=== PATIENT | female | born 2005 | race Caucasian/White ===

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

== ENCOUNTER 2024-09-13 21:41 | Emergency (ER) | payer BC, SELFPAY ==
--- OUTSIDE RECORDS SUMMARY | 2023-12-02 10:00 | XMS_ITS ---
Author Organization [employer] [place] [employer] Address [address] [place] [address] Care Team Providers Care Over The Horizon Targeting Supervisor Name Role Phone None, No PCP Primary Care Provider Bo Goldstein Unavailable [phone] Leticia Rider Unavailable [phone] Encounters Encounter Location Date Provider Diagnosis [address] [id number] 12/02/2023 Leticia Rider Plan Of Treatment No Information Progress Notes * Jazmin JEANDOB:2005 (18 yo F)Acc No.[id number]:12/02/2023 Patient: Jazmin GUERRIER Provider: Pancho Rider DO :2005 A ge:18 Y S ex:Female Date:12/02/2023 Address:[address] [place] [address] [facility] Pcp:No PCP None Subjective: * Chief Complaints: * * Medical History: Objective: * Vitals: Assessment: Plan: * Treatment: * Images: Billing Information: * Visit Code: * Procedure Codes: * Electronic signature of Deborah Rider DO on 09/13/2024 at 11:06 PM CDT Sign off status: Pending * Provider: Pancho Rider DO Date: 1 Generated for Printi ng/Faxing/eTransmitting on: 0 09/13/2024 11:06 PM CDT
--- OUTSIDE RECORDS SUMMARY | 2023-12-02 10:00 | XMS_ITS ---
Author Organization [place] [employer] Address [address] [place] [address] Care Team Providers Care Smoking Pipe Coater Name Role Phone None, No PCP Primary Care Provider Bo Goldstein Unavailable [phone] Leticia Rider Unavailable [phone] Encounters Encounter Location Date Provider Diagnosis [address] [id number] 12/02/2023 Leticia Rider Plan Of Treatment No Information Progress Notes * Jazmin JEANDOB:2005 (18 yo F)Acc No.[id number]:12/02/2023 Patient: Jazmin GUERRIER Provider: Pancho Rider DO :2005 A ge:18 Y S ex:Female Date:12/02/2023 Address:[address] [place] [address] [facility] Pcp:No PCP None Subjective: * Chief Complaints: [...]
--- OUTSIDE RECORDS SUMMARY | 2023-12-02 10:00 | XMS_ITS ---
Author Organization [place] [employer] Address [address] [place] [address] Care Team Providers Care Structured Cabling Technician Name Role Phone None, No PCP Primary Care Provider Bo Goldstein Unavailable [phone] Leticia Rider Unavailable [phone] Encounters Encounter Location Date Provider Diagnosis [address] [id number] 12/02/2023 Leticia Rider Plan Of Treatment No Information Progress Notes * Jazmin JEANDOB:2005 (18 yo F)Acc No.[id number]:12/02/2023 Patient: Jazmin GUERRIER Provider: Pancho Rider DO :2005 A ge:18 Y S ex:Female Date:12/02/2023 Address:[address] [place] [address] [facility] Pcp:No PCP None Subjective: * Chief Complaints: * * Medical History: Objective: * Vitals: Assessment: Plan: * Treatment: * Images: Billing Information: * Visit Code: * Procedure Codes: * Electronic signature of Deborah Rider DO on 09/13/2024 at 10:56 AM CDT Sign off status: Pending * Provider: Pancho Rider DO Date: 1 Generated for Printi ng/Faxing/eTransmitting on: 0 09/13/2024 10:56 AM CDT
--- OUTSIDE RECORDS SUMMARY | 2023-12-02 10:00 | XMS_ITS ---
Author Organization [place] [employer] Address [address] [place] [address] Care Team Providers Care Ski Patroller Name Role Phone None, No PCP Primary Care Provider Bo Goldstein Unavailable [phone] Leticia Rider Unavailable [phone] Encounters Encounter Location Date Provider Diagnosis [address] [id number] 12/02/2023 Leticia Rider Plan Of Treatment No Information Progress Notes * Jazmin JEANDOB:2005 (18 yo F)Acc No.[id number]:12/02/2023 Patient: Jazmin GUERRIER Provider: Pancho Rider DO :2005 A ge:18 Y S ex:Female Date:12/02/2023 Address:[address] [place] [address] [facility] Pcp:No PCP None Subjective: * Chief Complaints: [...]
--- OUTSIDE RECORDS SUMMARY | 2023-12-16 11:15 | XMS_ITS ---
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 Medications Medication SIG (Take, Route, Frequency, Duration) Notes Start Date End Date Status Ashwagandha Active Albuterol Active Social History Tobacco Use: Social History Observation Description Date Details (start date - stop date) Never Smoker NA - NA Tobacco Control (Standard) Question Answer Notes Tobacco use: Nonsmoker Encounters Encounter Location Date Provider Diagnosis [address] [id number] 12/16/2023 Leticia Rider Embedded foreign body Z18.9 [...] Notes * Jazmin JEANDOB:2005 (18 yo F)Acc No.[id number]:12/16/2023 Progress Note Patient: Lars STEPHENSONJazmin Provider: Pancho Rider DO :2005 A ge:18 Y S ex:Female Date:12/16/2023 Address:[address] [place] [address] JOSELIN Galindo, [facility] Pcp:No PCP None Subjective: * Chief Complaints: * 1 . Post op IUD removal under sedation. 2. 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 * Medical History: D epression, Asthma. * Data Coder Operator History: D ate of Last Period: i [...] Date: Generated for Cara huizar/Codie/eTvivianeitting on: 0 09/13/2024 11:06 PM CDT
--- OUTSIDE RECORDS SUMMARY | 2023-12-16 11:15 | XMS_ITS ---
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 Medications Medication SIG (Take, Route, Frequency, Duration) Notes Start Date End Date Status Ashwagandha Active Albuterol Active Social History Tobacco Use: Social History Observation Description Date Details (start date - stop date) Never Smoker NA - NA Tobacco Control (Standard) Question Answer Notes Tobacco use: Nonsmoker Encounters Encounter Location Date Provider Diagnosis [address] [id number] 12/16/2023 Leticia Rider Embedded foreign body Z18.9 [...] Notes * Jazmin JEANDOB:2005 (18 yo F)Acc No.[id number]:12/16/2023 Progress Note Patient: Lars STEPHENSONJazmin Provider: Pancho Rider DO :2005 A ge:18 Y S ex:Female Date:12/16/2023 Address:[address] [place] [address] JOSELIN Galindo, [facility] Pcp:No PCP None Subjective: * Chief Complaints: * 1 . Post op IUD removal under sedation. 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 * Medical History: D epression, Asthma. * Investigations Manager History: D ate of Last Period: i [...] of Deborah Rider DO on 09/13/2024 at 08:55 AM CDT Sign off status: Pending * Provider: Pancho Rider DO Date: Generated for Cara huizar/Codie/eTvivianeitting on: 0 09/13/2024 08:55 AM CDT
--- OUTSIDE RECORDS SUMMARY | 2024-08-27 12:00 | XMS_ITS | Encounter Summary ---
Author Organization [employer] Address [address] [address] Care Team Providers Care Online Facilitator Name Role Phone Belle Diaz PA-C Primary Care Provider [phone] Reason for Referral * Procedure/Equipment (Routine) - Incomplete Specialty Diagnoses / Procedures Referred By Contac t Referred To Contact Diagnoses Constipation, unspecified constipation type Procedures XR Abd Flat And Upright Zee Lam MD [address] [place] [address] Phone: tel: fax: Referral ID Status Reason Start Date Expiration Date V isits Requested Visits Authorized [id number] Incomplete 08/27/2024 11/26/2025 1 1 Reason for Visit * Reason Comments Constipation Encounter Details Date Type Department Care Team (Late st Contact Info) Description 08/27/2024 12:00 PM CDT Office Visit [facility] [address] [place] [address] Zee Lam MD [address] [place], [place] [id number] Constipation, unspecified constipation type Social History Tobacco Use Types Packs/Day Years Used Date Smoking Tobacco: Former Cigarettes Smokeless Tobacco: Never Tobacco Cessation:Counseling Given: Not Answered Alcohol Use Standard Drinks/Week Comments No 0 (1 standard drink = 0.6 oz pur e alcohol) Hunger Vital Sign Answer Date Recorded Within the past 12 months, y ou worried that your food would run out before you got the money to buy more. Never true 11/25/19 23 Within the past 12 months, t he food you bought just didn't last and you didn't have money to get more. Never true 11/24/2022 Comments No Sex and Gender Information Value Date Recorded Sex Assigned at Female 11/08/2022 5:42 PM CDT Legal Sex Female 4:21 AM CDT Gender Identity Female 11/08/2022 5:42 PM CDT Sexual Orientation Bisexual 11/08/2022 5: 42 PM CDT documented as of this encounter Last Filed Vital Signs Vital Sign Reading Time Taken Comments Blood Pressure 113/62 08/27/2024 11:44 AM CDT Pulse 91 08/27/2024 11:44 AM CDT Temperature 36.9 C (98.4 F) 08/27/2024 11:44 AM CDT Respiratory Rate 16 08/27/2024 11:44 AM CDT Oxygen Saturation 97% 08/27/2024 11:44 AM CDT Inhaled Oxygen Concentration - - Weight - - Height - - Body Mass Index - - documented in this encounter Patient Instructions * Patient Instructions* Zee Lam MD - 08/27/2024 12:00 PM CDT Take a little miralax daily if constipation continues to be a problem Follow up here or primary care provider or ED if getting worse documented in this encounter Progress Notes * Zee Lam MD - 08/27/2024 12:00 PM CDT [facility] Patient: Jazmin Carroll Date of : 2005 (18 y.o.) Subjective Nursing Notes: You Kerr, RN 08/27/24 6545 Signed Pt states she has had trouble with constipation for about 1 week. Has tried Miralax a couple times,Dulcolax. Today had a normal sized stool that was loose. States she had cramping for about 2 hours after having a bowel movement today. Patient requests an excuse letter for work/school: No History of Present Illness The patient presents with constipation for one week. She has been experiencing constipation for approximately one week, with no bowel movements for fourdays. She took one dose of Miralax in the morning and one dose of Dulcolax in the evening. By Tuesday, she had a minimal bowel movement that was mostly watery. This morning, she had a sizable bowel movement but experienced cramping for about two hours afterward and still feels a sense of fullness. The pain is located in the lower abdomen, sometimes radiating upwards, but primarily remains in the lower abdomen. She has a history of constipation only during a period of severe anorexia when she was not eating at all, but otherwise does not have a history of constipation. She does not regularly use laxatives and has not taken any other medications for this issue since the initial doses of Miralax and Dulcolax. No fever. She has been eating normally. No missed periods, indicating no current . Past Medical History: Diagnosis Date Tympanic membrane rupture Wheezing 01/04/15 ALBUterol sulfate HFA, ARIPiprazole, citalopram, and lamoTRIgine Allergies Allergen Reactions Other Rash Developed a rash on 3rd day of taking Celexa, Abilify and Lamictal. Unsure which caused the allergy. Social History Social History Narrative Living with great aunt since Feb 2011. Parents - were incarcerated; Hx of drug use. Now released. Parents are not together - are involved. 2 biologic sibs - Older brother Pablo (1 yr older) and twin sister Beth. 2 cousins at home as well. BP 113/62 (BP Location: Left Arm, BP Cuff Size: Regular) Pulse 91 Temp 36.9 ??C (98.4 ??F) (Oral) Resp 16 SpO2 97% Gen: Alert and oriented, NAD Abd soft, mild tender right lower pelvis Laboratory Testing: No results found for any visits on 08/27/24. Radiology: XR Abd Flat And Upright Result Date: 08/27/2024 EXAM: XR ABD FLAT AND UPRIGHT INDICATION: abd cramping and constipation COMPARISON: None. FINDINGS:Two views were obtained. Abdominal gas pattern is nonobstructive with small amount of stool, mostlyin the ascending colon. No suspicious calcifications are identified. No gross free intraabdominal gas is seen. There are no abnormal gas-fluid levels. No abnormal soft tissue mass or organomegaly is noted. Signed by: Javad Atwood 08/27/2024 12:15 PM MDM: no significant amount of stool in the colon and mild tenderness only in the area of the right ovary, at midcycle so I think some of her cramping is likely ovulation Interventions: Orders Placed This Encounter XR Abd Flat And Upright Assessment 1. Constipation, unspecified constipation type Plan Patient Discharge Medications & Instructions: Medications Prescribed this Visit None Patient Instructions Take a little miralax daily if constipation continues to be a problem Follow up here or primary care provider or ED if getting worse Zee Lam MD documented in this encounter Nursing Notes * You Kerr RN - 08/27/2024 12:00 PM CDT Pt states she has had trouble with constipation for about 1 week. Has tried Miralax a couple times,Dulcolax. Today had a normal sized stool that was loose. States she had cramping for about 2 hours after having a bowel movement today. Patient requests an excuse letter for work/school: No documented in this encounter Plan of Treatment Not on file documented as of this encounter Results * XR Abd Flat And Upright (08/27/2024 12:13 PM CDT) Anatomical Region Laterality Modality Abdomen Digital Radiogra phy Narrative 08/27/2024 12:15 PM CDT EXAM: XR ABD FLAT AND UPRIGHT INDICATION: abd cramping and constipation COMPARISON: None. FINDINGS: Two views were obtained. Abdominal gas pattern is nonobstructive with small amount of stool, mostly in the ascending colon. No suspicious calcifications are identified. No gross free intraabdominal gas is seen. There are no abnormal gas-fluid levels. No abnormal soft tissue mass or organomegaly is noted. Signed by: Javad Atwood 08/27/2024 12:15 PM Procedure Note Javad Atwood MD - 08/27/2024 EXAM: XR ABD FLAT AND UPRIGHT INDICATION: abd cramping and constipation COMPARISON: None. FINDINGS: Two views were obtained. Abdominal gas pattern is nonobstructive withsmall amount of stool, mostly in the ascending colon. No suspiciouscalcifications are identified. No gross free intraabdominal gas is seen.There are no abnormal gas-fluid levels. No abnormal soft tissue mass ororganomegaly is noted. Signed by: Javad Atwood 08/27/2024 12:15 PM us Zee Lam MD RAD GD Final Result documented in this encounter Visit Diagnoses Diagnosis Constipation, unspecified constipation type Constipation, unspecified constipation type documented in this encounter Care Teams Online Facilitator Relationship Specialty Start Date End Date Belle Diaz, MALIKAC [address] [place] [address] PCP - General Physician Supply Cataloguer 08/15/21 documented as of this encounter
--- OUTSIDE RECORDS SUMMARY | 2024-08-27 12:05 | XMS_ITS | Encounter Summary ---
Author Organization [employer] Address [address] [address] Care Team Providers Care Boulevard Glassware Replacer Name Role Phone Belle Diaz PA-C Primary Care Provider [phone] Reason for Visit * Procedure/Equipment (Routine) - Incomplete Specialty Diagnoses / Procedures Referred By Contac t Referred To Contact Diagnoses Constipation, unspecified constipation type Procedures XR Abd Flat And Upright Zee Lam MD [address] [place] [address] Phone: tel: fax: Referral ID Status Reason Start Date Expiration Date V isits Requested Visits Authorized [id number] Incomplete 08/27/2024 11/26/2025 1 1 Encounter Details Date Type Department Care Team (Latest Contact Info) Description 08/27/2024 12:05 PM CDT Ancillary Procedure [facility] [address] Radiology [address] [place] [address] Zee Lam MD [address] [place] [address] Constipation, unspecified constipation type Social History Tobacco Use Types Packs/Day Years Used Date Smoking Tobacco: Former Cigarettes Smokeless Tobacco: Never Alcohol Use Standard Drinks/Week Comments No 0 [...] PM CDT documented as of this encounter Plan of Treatment Not on file documented as of this encounter Procedures Procedure Name Priority Date/Time Associated Diagnosis Comments XR ABD FLAT AND UPRIGHT STAT 08/27/2024 12:13 PM CDT Constipation, unspecified constipation type documented in this encounter Results * XR Abd Flat [...] Signed by: Javad Atwood 08/27/2024 12:15 PM Zee Lam MD RAD GD Final Result documented in this encounter Visit Diagnoses Diagnosis Constipation, unspecified constipation type documented in this encounter Care Teams Boulevard Glassware Replacer Relationship Specialty Start Date End Date Belle Diaz PA-C [address] [place] [address] PCP - General Physician Cabinet Abrasive Sandblaster 08/15/21 documented as of this encounter
--- OUTSIDE RECORDS SUMMARY | 2024-09-06 13:00 | XMS_ITS | Encounter Summary ---
Author Organization [employer] Address [address], [place] [address] Care Team Providers Care Food Crops Farm Hand Name Role Phone Belle Diaz PA-C Primary Care Provider [phone] Reason for Referral * Procedure/Equipment (Routine) - Incomplete Specialty Diagnoses / Procedures Referred By Contac t Referred To Contact Diagnoses Menorrhagia with regular cycle Procedures OBGYN Pelvic/Outside Sales Advertising Executive Ultrasound Anjelica Davidson APRN, CNM [address] [place] [address] Phone: tel: fax: Referral ID Status Reason Start Date Expiration Date V isits Requested Visits Authorized [id number] Incomplete 09/06/2024 12/06/2025 1 1 Reason for Visit * Reason Comments Video Visit DYSMENORRHEA Encounter Details Date Type Department Care Team (Late st Contact Info) Description 09/06/2024 1:00 PM CDT Telemedicine [facility] [place] [phone] Anjelica Davidson APRN, CNM [address] [place], [place] [phone] Menorrhagia with regular cycle (Primary Dx) Social [...] you use any other medicines. This includes hcya-zhy-szwfqzi medicines, vitamins, herbal products, and supplements. control [...] get them without a prescription at most [facility]. What should you think about when [...] can you learn more? 1. Go to https://www.[employer]viewstreet.[employer]ency/healthlibrary. 2. Enter Z218 in the search box. Current as of: June 21, 2023 Content Version: 14.5 ?? [employer]. Care instructions adapted under license by your healthcare professional. If you have questions about a medical condition or this instruction, always ask your healthcare professional. [employer] disclaims any warranty or liability for your use of this information. documented in this encounter Plan of Treatment Not on file documented as of this encounter Results * OBGYN Pelvic/Outside Sales Advertising Executive Ultrasound (09/13/2024 11:13 AM CDT) Uterus AP Diameter (Height) 3.00 cm EXTERNAL RESULTS Uterus Longitudinal Diameter (Length) 6.90 cm EXTERNAL RESULTS Uterus Transverse Diameter (Width) 3.50 cm EXTERNAL RESULTS Uterus Volume 37.93 ml FIELD TECH AL RESULTS Endometrium Thickness 5.20 mm EXTERNAL [...] from the original result was not included. INTELLIGENCE APPLICATIONS Ultrasound Exam performed on: 09/13/2024 Referring provider: Anjelica Davidson APRN, CNM Referring clinic: [facility] Clinical indications: Menorrhagia with regular cycle LMP: 08-31-2024 Solo Musician(s) initials: KI The pelvic organs are imaged [...] provider. Irina Meng MD us Anjelica Davidson AUTOMATION SALES MANAGER, CNM RAD US Final Res ult documented in this encounter Visit Diagnoses Diagnosis Menorrhagia with regular cycle- Primary Excessive or frequent menstruation Menorrhagia with regular cycle Excessive or frequent menstruation documented in this encounter Care Teams Food Crops Farm Hand Relationship Specialty Start Date End Date Belle Diaz, KEYONA [address] [place] [address] PCP - General Physician Care Program Director 08/15/21 documented as of this encounter
--- OUTSIDE RECORDS SUMMARY | 2024-09-06 19:49 | XMS_ITS | Encounter Summary ---
Author Organization [facility] Address [address] [place] [address] Care Team Providers Care General Assembler Name Role Phone None Reported, Pcp Primary Care Provider Unavail able Reason for Visit * Reason Comments Vomiting Pt comes in for eval uation of vomiting that has been going on all day. She states that she has cyclic hyperemesis syndrome related to smoking marijuana, which she does still use occasionally. She states she last used yesterday. She has had very little to no PO intake today. Encounter Details Date Type Department Care Team (Late st Contact Info) Description 09/06/2024 7:49 PM CDT - 09/06/2024 9:19 PM CDT Emergency [facility] [address] [place] [phone] Peña Pal, MORA, C.N.P., D.N.P. [address] [place] [phone] Cyclical Vomiting Syndrome Unrelated To Migraine (Primary Dx); Nausea And Vomiting; Abdominal Pain Discharge Disposition: Home or Self Care Social History Tobacco Use Types Packs/Day Years Used Date Smoking Tobacco: Never Smokeless Tobacco: Never Alcohol Use Standard Drinks/Week Comments Yes 3 (1 standard drink = 0.6 oz pur e alcohol) Comments No Sex and Gender Information Value Date Recorded Sex Assigned at Not on file Legal Sex Female 12:37 AM CDT Gender Identity Not on file Sexual Orientation Not on file documented as of this encounter Last Filed Vital Signs Vital Sign Reading Time Taken Comments Blood Pressure 120/60 09/06/2024 9:10 PM CDT Pulse 58 09/06/2024 9:10 PM CDT Temperature 36.7 C (98.1 F) 09/06/2024 7:54 PM CDT Respiratory Rate 18 09/06/2024 9:10 PM CDT Oxygen Saturation 99% 09/06/2024 9:10 PM CDT Inhaled Oxygen Concentration - - Weight 78 kg (171 lb 15.3 oz) 09/06/2024 7:53 PM CDT Height - - Body Mass Index - - documented in this encounter Discharge Instructions * Discharge Instructions* Peña Pal APRN, C.N.P., D.N.P. - 09/06/2024 8:45 PM CDT You need to stop smoking cannabis, ingesting cannabis for it least 6 months before this syndrome gets better. Continue with sgge-doz-orltgmo Capsaicin cream 3 times a day to your stomach. Medicationsas ordered. Follow-up with primary care. Return to the emergency department with worsening symptoms. Zomauro at [facility]. Compazine suppositories at [facility]. Thank you for utilizing [facility] for your care! * Attachments The following attachments cannot be sent through Care Everywhere. * Cannabinoid Hyperemesis Syndrome (Malawian) documented in this encounter Medications at Time of Discharge dicyclomine (BENTYL) 10 mg capsule Take 10 mg by mouth 4 (four) times a day. FLUoxetine (PROzac) 20 mg capsule Take 20 mg by mouth daily. guanFACINE (TENEX) 2 mg tablet Take 2 mg by mouth at bedtime. hydrOXYzine (ATARAX) 25 mg tablet Take 25 mg by mouth. 0 ibuprofen (ADVIL,MOTRIN) 200 mg capsule Take 600 mg by mouth every 6 (six) hours as needed for pain. melatonin 3 mg tablet Take 3 mg by mouth. 0 OLANZapine (ZyPREXA ZYDIS) 5 mg disintegrating tablet Dissolve 5 mg in the mouth at bedtime. omeprazole (PriLOSEC) [address] capsule Take 20 mg by mouth every morning before breakfast. ondansetron ODT (ZOFRAN-ODT) 4 mg disintegrating tablet Dissolve 1 tablet (4 mg total) in the mouth every 8 (eight) hours as needed for nausea or vomiting for up to 30 doses. 30 tablet 4 ondansetron ODT (Zofran-ODT) 4 mg disintegrating tablet Dissolve 1 tablet (4 mg total) in the mouth every 12 (twelve) hours. 10 tablet 5 prochlorperazine (Compazine) 25 mg suppository Insert 1 suppository (25 mg total) into the rectum every 12 (twelve) hours as needed for nausea or vomiting. 12 suppository 5 promethazine (PHENERGAN) 25 mg tablet Take 1 tablet (25 mg total) by mouth every 6 (six) hours as needed for nausea or vomiting (Headache). 20 tablet 4 documented as of this encounter ED Notes * Peña Pal, MORA, C.N.P., D.N.P. - 09/06/2024 7:49 PM CDT Images from the original note were not included. CHIEF COMPLAINT/REASON FOR VISIT Vomiting (Pt comes in for evaluation of vomiting that has been going on all day. She states that she has cyclic hyperemesis syndrome related to smoking marijuana, which she does still use occasionally. She states she last used yesterday. She has had very little to no PO intake today.) HISTORY OF PRESENT ILLNESS Patient presents to the emergency department stating I have hyperemesis cannabis disorder. Patient states she started vomiting this morning. She did smoke cannabis yesterday. She has been trying toquit. Patient states occasionally she will be able to keep down ice chips and small sips of fluid ot herwise she has not had anything to eat or felt a drink today. He is complaining of some abdominal pain. Symptoms improve hot shower. Patient is also a tried Capsaicin cream in the past and this has been helpful. Patient states she has had some constipation and diarrhea lately. She denies any fever, chills, sweats. She does have, epigastric and central abdominal pain. She has used droperidol in the past with Benadryl and this has been helpful for her. History provided by: Patient and significant other interpreter and translator needed/used: no REVIEW OF SYSTEMS Constitutional: Negative for chills, diaphoresis, fatigue and fever. HENT: Negative for sinus pressure and sore throat. Respiratory: Negative for cough, chest tightness and shortness of breath. Cardiovascular: Negative for chest pain. Gastrointestinal: Positive for abdominal pain, constipation, diarrhea, nausea and vomiting. Genitourinary: Negative for dysuria, frequency and urgency. Musculoskeletal: Negative for arthralgias and myalgias. Skin: Negative for rash. Neurological: Negative for dizziness, weakness and headaches. Hematological: Negative for adenopathy. Does not bruise/bleed easily. All other systems reviewed and are negative. Allergies Reviewed in medical record Current Medications Reviewed in Medical Record. PAST HISTORY Medical Medical History[1] Problem List[2] Surgical Surgical History[3] Family Reviewed in Medical Record Social History Social History Tobacco Use Smoking status: Never Smokeless tobacco: Never Substance Use Topics Alcohol use: Yes Alcohol/week: 3.0 standard drinks of alcohol Types: 3 Shots of liquor per week Social History Substance and Sexual Activity Drug Use Yes Types: Marijuana OBJECTIVE Initial Vital Signs / Weights Initial Vitals Temperature 09/06/241953 36.7 ??C Pulse Rate 09/06/241953 (!) 55 Heart Rate -- Resp Rate 09/06/241953 18 Blood Pressure 09/06/241953 132/60 SpO2 09/06/241953 96 % Pain Score 09/06/241951 7 Wt Readings from Last 3 Encounters: 09/06/24 78 kg 10/21/23 78 kg 06/16/23 73.5 kg (88%, Z= 1.20)* * Growth percentiles are based on CDC (Girls, 2-20 Years) data. PHYSICAL EXAMINATION Constitutional: Nursing note and vitals reviewed. No distress. HENT: Mouth/Throat: Oropharynx is clear and moist. Mucous membranes are moist. No tonsillar exudate. Eyes: Conjunctivae and EOM are normal. Pupils are equal, round, and reactive to light. Neck: Neck supple. Cardiovascular: Normal rate, regular rhythm, S1 normal, S2 normal and normal heart sounds. Pulses are strong and palpable. No murmur heard.Capillary refill: takes less than 3 seconds Pulmonary/Chest: Effort normal and breath sounds normal. There is normal air entry. No respiratory distress. Abdominal: Soft. Bowel sounds are normal. There is no abdominal tenderness. There is no rebound andno guarding. Musculoskeletal: General: Normal range of motion. Cervical back: Normal range of motion and neck supple. Lymphadenopathy: She has no cervical adenopathy. Neurological: Alert and oriented to person, place, and time. No cranial nerve deficit. Skin: Skin is warm, dry and intact. Psychiatric: She has a normal mood and affect. DIAGNOSTICS Labs Labs Reviewed BASIC METABOLIC PANEL, S/P - Abnormal Result Value Potassium, P 4.0 Sodium, P 140 Chloride, P 107 Bicarbonate, P 17 (*) Anion Gap, P 16 (*) BUN (Blood Urea Nitrogen), P 16 Creatinine 1.19 (*) Estimated GFR (eGFR) 67 Calcium, Total, P 9.9 Glucose, P 122 CBC WITH DIFFERENTIAL, B - Abnormal Hemoglobin 13.1 Hematocrit 37.7 Erythrocytes 4.33 MCV 87.1 RBC Distrib Width 12.9 Platelet Count 306 Leukocytes 14.2 (*) Neutrophils 12.56 (*) Lymphocytes 1.15 Monocytes 0.40 Eosinophils <0.04 Basophils 0.05 MAGNESIUM, S Magnesium, P 2.1 Procedures None See separate procedure note. ED COURSE ED Course as of 09/06/242122 [facility] Sep 06, [id number] I performed my initial evaluation of the patient. We discussed Emergency Department course including testing, treatment, and potential disposition based on findings. Appears uncomfortable but not actively vomiting on arrival. 2013 Leukocytes(!): 14.2 2013 Neutrophils(!): 12.56 Secondary to demarginalization from vomiting. Doubt infection and no infectious sx. 2023 Potassium, P: 4.0 2023 Sodium, P: 140 Reassuring 2023 Anion Gap, P(!): 16 Open gap with bicarb of 17. Expected with vomiting and fluids should help 2023 Glucose, P: 122 2023 Magnesium, P: 2.1 2023 No severe metabolic derangement. 2116 Feeling much improved. Tolerating liquids. Would like to be discharged. I discussed the plan for discharge with the patient, and patient/family is agreeable. I discussed with patient the utility, limitations, and findings of the exam/interventions/studies done during this visit as well as the list of differential diagnosis. Patient understands provisional nature of this diagnosis and need for follow up. We discussed the plan of care, including supportive cares. We also discussed symptoms to monitor and symptoms that should prompt them to return for re-evaluation including new or worsening symptoms. All questions and concerns addressed. Patient to be discharged by RN. Final Diagnoses: as of 09/06/242122 Cyclical Vomiting Syndrome Unrelated To Migraine Nausea And Vomiting Abdominal Pain INTERVENTIONS Medications NaCl 0.9 % bolus 1,000 mL (0 mL intravenous Stopped 09/06/242044) diphenhydrAMINE injection 25 mg (BenadryL) (25 mg intravenous Given 09/06/242019) droPERidoL injection 1.875 mg (Inapsine) (1.875 mg intravenous Given 09/06/242017) ketorolac injection 15 mg (ToradoL) (15 mg intravenous Given 09/06/242015) pantoprazole injection 40 mg (Protonix) (40 mg intravenous Given 09/06/242019) capsaicin 0.025 % cream 1 Application (Zostrix) (1 Application topical Given 09/06/242028) MEDICAL DECISION MAKING Assessment and Plan Patient presents to the emergency department with cannabis hyperemesis syndrome. Patient has a history of the same. She used cannabis yesterday. She started vomiting this morning. She has not been able to stop vomiting. She took all of her home medications which do not include antiemetics as she ran out. Denies any fever, chills, sweats. She is tolerating occasional small sips of liquids otherwise not keeping any food or drink down. Differential diagnosis includes but not limited to cannabis hyperemesis syndrome, viral gastroenteritis, ulcerative disease, perforated ulcer, gallbladder disease pancreatitis, or others. We will get a CBC, BNP and magnesium to ensure no metabolic derangement. She will be given a L of fluid. She will be given 25 of Benadryl, 1.875 mg of droperidol, Toradol for her stomach pain as wellas Capsaicin cream. Disposition pending workup. Patient felt a little anxious from the droperidol, however she had no further vomiting while in theemergency department. She was tolerating liquids without any difficulty. We will continue her treatment as an outpatient, she was given a script for Zofran as well as Compazine rectal. Patient was also instructed to pickling operator Capsaicin cream and use the 3 times a day on her abdomen. She was also instructed to stop smoking or ingesting cannabis for it least 6 months. SHe was given a list of resources to help her quit. She was discharged in no acute distress feeling much improved. Patient and/or caregiver was given red flag signs & symptoms that would require immediate followup or return to the ED. . DIFFERENTIAL DIAGNOSES As above. PROBLEMS ADDRESSED THIS VISIT As above. Care is significantly affected by the following Social Determinants of Health: none. I reviewed the following external records: primary care records, prior outpatient labs, prior outpatient radiology tests and inpatient records. The following tests were considered but ultimately not performed: CT imaging of the abdomen was considered, however diffuse abdominal pain with no localization, no rebound or abdominal pain that would suggest peritonitis or surgical abdomen.. Escalation of care, including admission/observation, considered: Did consider observation admissionhowever the patient's symptoms resolved.. DIAGNOSIS Final diagnoses: [R11.15] Cyclical Vomiting Syndrome Unrelated To Migraine [R11.2] Nausea And Vomiting [R10.9] Abdominal Pain DISPOSITION Home or Self Care DISCHARGE/TRANSFER VITAL SIGNS Vitals: 09/06/24 2110 BP: 120/60 Pulse: (!) 58 Resp: 18 Temp: SpO2: 99% ED DISCHARGE MEDS ED Prescriptions Medication Sig Dispense Start Date End Date Auth. Provider prochlorperazine (Compazine) 25 mg suppository Insert 1 suppository (25 mg total) into the rectum every 12 (twelve) hours as needed for nausea or vomiting. 12 suppository 09/06/2024 -- Peña Pal APRN, C.N.P., D.N.P. ondansetron ODT (Zofran-ODT) 4 mg disintegrating tablet Dissolve 1 tablet (4 mg total) in the mouthevery 12 (twelve) hours. 10 tablet 09/06/2024 -- Peña Pal APRN, C.N.P., D.N.P. FOLLOW UP Follow-up with primary care as needed. Peña Pal DNP, MORA, SERVICE DELIVERY MANAGEMENT CONSULTANT-C, AGACNP-BC, ENP-C Emergency Medicine [1] Past Medical History: Diagnosis Date Anorexia Anxiety Generalized Disorder Asthma NOS Bulimia Nervosa (HCC) Depressive Disorder Gastroesophageal Reflux Disease NOS [2] Patient Active Problem List Diagnosis Cyclical Vomiting Syndrome Unrelated To Migraine Suicide Ideation Suicide Attempt Initial Encounter ([facility]) Posttraumatic Stress Disorder Brief Anxiety Generalized Disorder Other Specified Eating Disorder Loss Weight Abnormal Hypokalemia Gastroesophageal Reflux Disease NOS Depression Major Recurrent Moderate (HCC) Cannabis Use Unspecified Uncomplicated Bradycardia Asthma Exercise Induced Bronchospasm (HCC) Eating Disorder NOS Abdominal Pain Mood Disorder [3] History reviewed. No pertinent surgical history. Peña Pal APRN, C.N.P., D.N.P. 09/06/242122 documented in this encounter Plan of Treatment Not on file documented as of this encounter Procedures Procedure Name Priority Date/Time Associated Diagnosis Comments CBC WITH DIFFERENTIAL, B STAT 09/06/2024 8:03 PM CDT MAGNESIUM, S STAT 09/06/2024 8:03 PM CDT BASIC METABOLIC PANEL, S/P STAT 09/06/2024 8:03 PM CDT documented in this encounter Results * Magnesium (09/06/2024 8:03 PM CDT) Magnesium, P 2.1 1.7 - 2.3 mg/dL 09/06/2024 8:23 PM CDT [facility] Blood (Blood, Venous) 09/06/2024 8:03 PM CDT 09/06/2024 8:05 PM CDT Peña Pal APRN, C.N.P., D.N.P. LAB BLOOD AD D-ON Final Result [facility] [address] [place] [id number], [place] [facility] in [address] [address] * (ABNORMAL) CBC with Differential, Blood (09/06/2024 8:03 PM CDT) [facility] Hemoglobin 13.1 11.6 - 15.0 g/dL 09/06/2024 8:10 PM CDT CNFL Hematocrit 37.7 35.5 - 44.9 % 09/06/2024 8:10 PM CDT CNFL Erythrocytes 4.33 3.92 - 5.13 x10(12)/L 09/06/2024 8:10 PM CDT CNFL MCV 87.1 78.2 - 97.9 fL 09/06/2024 8:10 PM CDT CNFL RBC Distrib Width 12.9 12.2 - 16.1 % 09/06/2024 8:10 PM CDT CNFL Platelet Count 306 157 - 371 x10(9)/L 09/06/2024 8:10 PM CDT CNFL Leukocytes 14.2(H) 3.4 - 9.6 x10(9)/L 09/06/2024 8:10 PM CDT CNFL Neutrophils 12.56(H) 1.56 - 6.45 x10(9)/L 09/06/2024 8:10 PM CDT CNFL Lymphocytes 1.15 0.95 - 3.07 x10(9)/L 09/06/2024 8:10 PM CDT CNFL Monocytes 0.40 0.26 - 0.81 x10(9)/L 09/06/2024 8:10 PM CDT CNFL Eosinophils <0.04 0.03 - 0.48 x10(9)/L 09/06/2024 8:10 PM CDT CNFL Basophils 0.05 0.01 - 0.08 x10(9)/L 09/06/2024 8:10 PM CDT CNFL Blood (Blood, Venous) 09/06/2024 8:03 PM CDT 09/06/2024 8:05 PM CDT us Peña Pal APRN, C.N.P., D.N.P. LAB BLOOD AD D-ON Final Result [facility] [address] [address], [facility] CNFL [facility] in [address] [address] * (ABNORMAL) Basic Metabolic Panel (09/06/2024 8:03 PM CDT) Potassium, P 4.0 3.6 - 5.2 mmol/L 09/06/2024 8:23 PM CDT CNFL Sodium, P 140 135 - 145 mmol/L 09/06/2024 8:23 PM CDT CNFL Chloride, P 107 98 - 107 mmol/L 09/06/2024 8:23 PM CDT CNFL Bicarbonate, P 17(L) 22 - 29 mmol/L 09/06/2024 8:23 PM CDT CNFL Anion Gap, P 16(H) 7 - 15 09/06/2024 8:23 PM CDT CNFL BUN (Blood Urea Nitrogen), P 16 6 - 21 mg/dL 09/06/2024 8:23 PM CDT CNFL Creatinine 1.19(H) 0.59 - 1.04 mg/dL 09/06/2024 8:23 PM CDT CNFL Estimated GFR (eGFR) 67 >=60 mL/min/BSA 09/06/2024 8:23 PM CDT CNFL Comment: Estimated GFR calculated using the 2020 CKD_EPI creatinine equation. Calcium, Total, P 9.9 8.6 - 10.0 mg/dL 09/06/2024 8:23 PM CDT CNFL Glucose, P 122 70 - 140 mg/dL 09/06/2024 8:23 PM CDT CNFL Blood (Blood, Venous) 09/06/2024 8:03 PM CDT 09/06/2024 8:05 PM CDT Peña Pal APRN, C.N.P., D.N.P. LAB BLOOD AD D-ON Final Result [address] [address], [place] CNFL [facility] in [address] [address] documented in this encounter Visit Diagnoses Diagnosis Cyclical Vomiting Syndrome Unrelated To Migraine- Primary Nausea And Vomiting Abdominal Pain documented in this encounter Administered Medications Inactive Administered Medications - up to 3 most recent administrations Medication Order MAR Action Action Date Dose Rate Site capsaicin 0.025 % cream 1 Application (Zostrix) 1 Application, topical, Once, On Marga 09/06/24 at 2016, For 1 dose Given 09/06/2024 8:29 PM CDT 1 Application diphenhydrAMINE injection 25 mg (BenadryL) 25 mg, intravenous, Once, On Marga 09/06/24 at 2010, For 1 dose Given 09/06/2024 8:20 PM CDT 25 mg droPERidoL injection 1.875 mg (Inapsine) 1.875 mg, intravenous, Once, On Marga 09/06/24 at 2010, For 1 dose Given 09/06/2024 8:18 PM CDT 1.875 mg ketorolac injection 15 mg (ToradoL) 15 mg, intravenous, Once, On Marga 09/06/24 at 2010, For 1 dose, Adult IV push rate: Over 15 seconds. Peds IV push rate: Over 1 minute. Doses > 15 mg IV/IM are discouraged due to lack of additional analgesic benefit. Given 09/06/2024 8:16 PM CDT 15 mg NaCl 0.9 % bolus 1,000 mL 1,000 mL, intravenous, at 1,000 mL/hr, Administer over 1 Hours, Once, On Marga 09/06/24 at 1951, For 1 dose New Bag 09/06/2024 8:04 PM CDT 1,000 mL 1000 mL/hr pantoprazole injection 40 mg (Protonix) 40 mg, intravenous, Once, On Marga 09/06/24 at 2010, For 1 dose, Administer IV push over 2 minutes. Add 10 mL NS to 40 mg vial for a final concentration of 4 mg/mL. Given 09/06/2024 8:20 PM CDT 40 mg documented in this encounter Active and Recently Administered Medications Times are shown in CDT. Scheduled Medication Order 09/04/2024 09/05/2024 09/06/2024 capsaicin 0.025 % cream 1 Application (Zostrix) (COMPLETED) 1 Application, topical, Once, On Marga 09/06/24 at 2016, For 1 dose 2028 (Given - Provid er: Justin Moody R.N. - Comment: to abdomen) diphenhydrAMINE injection 25 mg (BenadryL) (COMPLETED) 25 mg, intravenous, Once, On Marga 09/06/24 at 2010, For 1 dose 2019 (Given - Provid er: Justin Moody R.N.) droPERidoL injection 1.875 mg (Inapsine) (COMPLETED) 1.875 mg, intravenous, Once, On Marga 09/06/24 at 2010, For 1 dose 2017 (Given - Provid er: Justin Moody R.N.) ketorolac injection 15 mg (ToradoL) (COMPLETED) 15 mg, intravenous, Once, On Marga 09/06/24 at 2010, For 1 dose, Adult IV push rate: Over 15 seconds. Peds IV push rate: Over 1 minute. Doses > 15 mg IV/IM are discouraged due to lack of additional analgesic benefit. 2015 (Given - Provid er: Justin Moody R.N.) NaCl 0.9 % bolus 1,000 mL (COMPLETED) 1,000 mL, intravenous, at 1,000 mL/hr, Administer over 1 Hours, Once, On Marga 09/06/24 at 1951, For 1 dose 2003 (New Bag - Prov ider: Justin Moody R.N.)2044 (Stopped - Provider: Justin Moody R.N.) pantoprazole injection 40 mg (Protonix) (COMPLETED) 40 mg, intravenous, Once, On Marga 09/06/24 at 2010, For 1 dose, Administer IV push over 2 minutes. Add 10 mL NS to 40 mg vial for a final concentration of 4 mg/mL. 2019 (Given - Provid er: Justin Moody R.N.) documented in this encounter Care Teams General Assembler Relationship Specialty Start Date End Date None Reported, Pcp PCP - General Family Medicine 09/06/24 documented as of this encounter
--- OUTSIDE RECORDS SUMMARY | 2024-09-11 09:20 | XMS_ITS | Encounter Summary ---
Author Organization [facility] Address [address] [place], [place] [address]. [place] [address] Care Team Providers Care Security Architect Name Role Phone Reynaldo Moya MD Unavailable + lIya Muñoz PA-C Unavailable No Ref-Primary, Physician Primary Care Provider Reason for Visit * Reason Comments Nausea & Vomiting Encounter Details Date Type Department Care Team (Late st Contact Info) Description 09/11/2024 9:20 AM CDT - 09/11/2024 12:21 PM T Emergency [facility] Emergency Dept [address] [place] [address] Sharan Pal PA-C [facility] [address] [place], [place] [id number] Cannabis hyperemesis syndrome concurrent with and due to cannabis abuse (H) Discharge Disposition: Home or Self Care Social History Tobacco Use Types Packs/Day Years Used Date Smoking Tobacco: Never Smokeless Tobacco: Never Comments:smokes outside. Alcohol Use Standard Drinks/Week Comments No 0 (1 standard drink = 0.6 oz pur e alcohol) PHQ-2 Answer Date Recorded PHQ-2 Score 4 08/04/2023 Adolescent Education Answer Date Record ed Getting School Help Needed Not on file 11/13 Food Insecurity Answer Date Recorded Within the past 12 months, d id you worry that your food would run out before you got money to buy more? No 08/04/2023 Within the past 12 months, d id the food you bought just not last and you didn t have money to get more? No 08/04/2023 Housing Stability Answer Date Recorded Do you have housing? (Housin g is defined as stable permanent housing and does not include staying outside in a car, in a tent, in an abandoned building, in an overnight senior living, or couch-surfing.) Yes 08/04/2023 Are you worried about losing your housing? No 08/04/2023 Financial Resource Strain Answer Date R ecorded Within the past 12 months, h ave you or your family members you live with been unable to get utilities (heat, electricity) when it was really needed? No 08/04/2023 Transportation Needs Answer Date Record ed Within the past 12 months, h as lack of transportation kept you from medical appointments, getting your medicines, non-medical meetings or appointments, work, or from getting things that you need? No 08/04/2023 Interpersonal Safety Answer Date Record ed Do you feel physically and e motionally safe where you currently live? Yes 08/04/2023 Within the past 12 months, h ave you been hit, slapped, kicked or otherwise physically hurt by someone? No 08/04/2023 Within the past 12 months, h ave you been humiliated or emotionally abused in other ways by your partner or ex-partner? 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 Use Zofran for nausea. Stay hydrated. Eat small amounts of food. documented in this encounter Medications at Time of Discharge ondansetron (ZOFRAN ODT) 4 MG ODT tab Take 1 tablet (4 mg) by mouth every 8 hours as needed for nausea. 10 tablet 09/11/2024 09/14/2024 albuterol (PROAIR HFA/PROVENTIL HFA/VENTOLIN HFA) 108 (90 Base) MCG/ACT inhaler Inhale 2 puffs into the lungs every 6 hours as needed 10/04/2017 hydrOXYzine (ATARAX) 25 MG tabletIndications :Insomnia due to other mental disorder,Anxiety Take 1 tablet (25 mg) by mouth 4 times daily as needed for anxiety 50 tablet 04/01/2019 melatonin 3 MG tablet Take 3 mg by mouth At Bedtime documented as of this encounter ED Notes * Sandra Márquez RN - 09/11/2024 10:34 AM CDT Sr. Director entered room due to call light being on. Pt request a shower stating she needed water over her head for the nausea. Pt offered ice pack, states she needs hot water. Hot pack offered to pt, states water is the stevens. Pt asked if she was get out of bed to run water in the sink over her head. Pt proceeded to get out of bed and run hot water from sink in room over back of head. * Sharan Pal PA-C - 09/11/2024 9:24 AM CDT Emergency Department Note History of Present Illness Chief Complaint Nausea & Vomiting HPI Jazmin Carroll is a 18 year old female with a history of cyclical vomiting syndrome, recurrent abdominal pain, anorexia nervosa, suicidal ideation, marijuana use, HECTOR, and GERD who presents to the ED via EMS for evaluation of nausea and vomiting. The patient reports experiencing nausea and vomiting for the last 5-6 days with an accompanied lack of intake due to difficulty retaining solids and liquids. She states that she has had upper abdominal cramping and diaphoresis alongside the vomiting with emesis described as dark brown in color. EMS notes administering 4 MG Zofran, 12.5 MG Benadryl, and 2 MG morphine en route. She endorses dysuria and loose stools since onset. She also endorses lesa césar intake with her last use on 09/06/24. She denies any fever, chills, chest pain, core throat, or shortness of breath. No hematemesis. No urinary frequency, vaginal symptoms, or concern for . Of note, the patient discusses previous negative experience with Triperidol at [facility]. Independent Historian EMS as detailed above. Review of External Notes [place] ED visit on 09/06/24 for [facility] Past Medical History Medical History and Problem List Anorexia nervosa Cyclical vomiting syndrome Exercise induced bronchospasm GERD HECTOR PTSD NSSI Suicide attempt Intermittent asthma MDD Recurrent abdominal pain Suicidal ideation Hypokalemia Marijuana use Medications Abilify Celexa Motrin Lamictal Aletome Physical Exam Patient Vitals for the past 24 hrs: BP Temp Temp src Pulse Resp SpO2 09/11/24 1100 -- -- -- 88 14 98 % 09/11/24 1000 (!) 148/84 -- -- 61 26 98 % 09/11/24 0952 (!) 140/119 -- -- 52 16 98 % 09/11/24 0926 125/80 98.5 ??F (36.9 ??C) Oral 52 -- 93 % Physical Exam Constitutional: Pleasant. Cooperative. Eyes: Pupils equally round and reactive HENT: Head is normal in appearance. Dry mucous membranes. Cardiovascular: Regular rate and rhythm and without murmurs. Respiratory: Normal respiratory effort, lungs are clear bilaterally. GI: TTP to upper abdomen. No guarding, rebound, or rigidity. Musculoskeletal: No asymmetry of the lower extremities. Skin: Normal, without rash. Neurologic: Cranial nerves grossly intact, normal cognition, no focal deficits. Alert and oriented x 3. Psychiatric: Normal affect. Nursing notes and vital signs reviewed. Diagnostics Lab Results Labs Ordered and Resulted from Time of ED Arrival to Time of ED Departure COMPREHENSIVE METABOLIC PANEL - Abnormal Result Value Sodium 138 Potassium 3.8 Carbon Dioxide (CO2) 19 (*) Anion Gap 17 (*) Urea Nitrogen 13.1 Creatinine 0.97 (*) GFR Estimate 85 Calcium 9.6 Chloride 102 Glucose 93 Alkaline Phosphatase 67 AST 16 ALT 12 Protein Total 7.3 Albumin 5.0 Bilirubin Total 0.7 CBC WITH PLATELETS AND DIFFERENTIAL - Abnormal WBC Count 14.1 (*) RBC Count 4.28 Hemoglobin 13.1 Hematocrit 37.2 MCV 87 MCH 30.6 MCHC 35.2 RDW 13.0 Platelet Count 260 % Neutrophils 82 % Lymphocytes 12 % Monocytes 5 % Eosinophils 0 % Basophils 0 % Immature Granulocytes 0 NRBCs per 100 WBC 0 Absolute Neutrophils 11.6 (*) Absolute Lymphocytes 1.7 Absolute Monocytes 0.7 Absolute Eosinophils 0.1 Absolute Basophils 0.1 Absolute Immature Granulocytes 0.0 Absolute NRBCs 0.0 LIPASE - Normal Lipase 14 TROPONIN T, HIGH SENSITIVITY - Normal Troponin T, High Sensitivity <6 ROUTINE UA WITH MICROSCOPIC REFLEX TO CULTURE Imaging No orders to display EKG ECG taken at 0943, ECG read at 0949 Sinus bradycardia with sinus arrhythmia Otherwise normal ECG No significant change as compared to prior, dated 08/25/22. Rate 57 bpm. IL interval 144 ms. QRS duration 86 ms. QT/QTc 432/420 ms. P-R-T axes * 80 57. Independent Interpretation None ED Course Medications Administered Medications sodium chloride 0.9% BOLUS 1,000 mL (0 mLs Intravenous Stopped 09/11/24 1205) diphenhydrAMINE (BENADRYL) injection 25 mg (25 mg Intravenous $Given 09/11/24 0958) haloperidol lactate (HALDOL) injection 2.5 mg (2.5 mg Intravenous $Given 09/11/24 0958) ondansetron (ZOFRAN) injection 4 mg (4 mg Intravenous $Given 09/11/24 1045) diphenhydrAMINE (BENADRYL) injection 12.5 mg (12.5 mg Intravenous $Given 09/11/24 1041) Procedures Procedures Discussion of Management None ED Course ED Course as of 09/11/24 1222 TueSep 11, 2024 0984 I obtained history and examined the patient as noted above 1202 I rechecked the patient and explained findings. We discussed plans for discharge and the patient is agreeable with this plan. Additional Documentation None Medical Decision Making / Diagnosis [facility] Diagnoses: None MIPS None MDM Jazmin Carroll is a 18 year old female with a history of cannabis use and cyclic vomiting who presents to the ED for evaluation of nausea and vomiting in the setting of recent marijuana use. See HPIas above for additional details. Vitals and physical exam as above. Patient with workup as above. Patient with mild leukocytosis, likely secondary to persistent vomiting. Remainder of lab work unremarkable, no marked electrolyte abnormality or kidney or liver or pancreatic dysfunction. Discussed with patient other options for work up including CT of abdomen. Patient believes her symptoms are secondary to CHS, would like to defer on any imaging at this time. Do feel that this is reasonable. Patient provided the above medications with symptomatic improvement. Patient requests discharge to home.Do feel that this is reasonable. Rx for Zofran for home. Discussed avoidance for marijuana. Discussed reasons to return. All questions answered. Patient discharged to home in stable condition. Disposition The patient was discharged. Diagnosis ICD-10-CM 1. Cannabis hyperemesis syndrome concurrent with and due to cannabis abuse (H) F12.188 Discharge Medications Discharge Medication List as of 09/11/2024 12:05 PM START taking these medications Details ondansetron (ZOFRAN ODT) 4 MG ODT tab Take 1 tablet (4 mg) by mouth every 8 hours as needed for nausea., Disp-10 tablet, R-0, Local Print Scribe Disclosure: I, Tian Shah, am serving as a scribe at 9:26 AM on 09/11/2024 to document services personallyperformed by Sharan Pal PA-C based on my observations and the provider's statements to me. This record was created at least in part using electronic voice recognition software, so please excuse any typographical errors. Sharan Pal PA-C 09/11/24 1224 * Juan Green RN - 09/11/2024 9:24 AM CDT Gonzalez from work d/t severe nausea, vomiting, stomach cramping. Was recently diagnosed with sickness to cannibus last week and has since quit but has not been able to eat anything all week and sx have lasted since the last time she took cannibus. On arrival, Aox4, VSS. Triage Assessment (Adult) Row Name 09/11/24 0923 Triage Assessment Airway WDL WDL Respiratory WDL Respiratory WDL WDL Skin Circulation/Temperature WDL Skin Circulation/Temperature WDL WDL Cardiac WDL Cardiac WDL WDL Peripheral/Neurovascular WDL Peripheral Neurovascular WDL WDL Cognitive/Neuro/Behavioral WDL Cognitive/Neuro/Behavioral WDL WDL * Criselda Dent RN - 09/11/2024 9:21 AM CDT Patient arrives via EMS with complaints of cyclical vomiting. EMS gave 4 Zofran, 2 morphine, and 12.5 benadryl. documented in this encounter Plan of Treatment Not on file documented as of this encounter Procedures Procedure Name Priority Date/Time Associated Diagnosis Comments EKG 12-LEAD, TRACING ONLY STAT 09/11/2024 9:43 AM CDT EXTRA TUBE STAT 09/11/2024 9:28 AM CDT EXTRA PURPLE TOP TUBE STAT 09/11/2024 9:28 AM CDT EXTRA GREEN TOP (LITHIUM HEPARIN) TUBE STAT 09/11/2024 9:28 AM CDT EXTRA RED TOP TUBE STAT 09/11/2024 9: 28 AM CDT EXTRA BLUE TOP TUBE STAT 09/11/2024 9 :28 AM CDT CBC WITH PLATELETS AND DIFFERENTIAL STAT 09/11/2024 9:28 AM CDT TROPONIN T, HIGH SENSITIVITY STAT 09/11/2024 9:28 AM CDT CBC WITH PLATELETS & DIFFERENTIAL STAT 09/11/2024 9:28 AM CDT LIPASE STAT 09/11/2024 9:28 AM CDT COMPREHENSIVE METABOLIC PANEL STAT 09/11/2024 9:28 AM CDT documented in this encounter Results * EKG 12-lead, tracing only (09/11/2024 9:43 AM CDT) Systolic Blood Pressure mmHg RADIOLOGY RESULTS Diastolic Blood Pressure mmHg RADIOLOGY RESULTS Ventricular Rate 57 BPM RAD IOLOGY RESULTS Atrial Rate 57 BPM RADIOLOG Y RESULTS IL Interval 144 ms RADIOLOG Y RESULTS QRS Duration 86 ms RADIOLO GY RESULTS QT 432 ms RADIOLOGY RESULTS QTc 420 ms RADIOLOGY RESULTS P [place] degrees RADIOLOGY RESULTS R AXIS 80 degrees RADIOLOGY RESULTS T [place] 57 degrees RADIOLOGY RESULTS Interpretation ECG Sinus bradycardia with sinus arrhythmia Otherwise normal ECG When compared with ECG of 26-Oct-2022 22:28, No significant change was found Confirmed by - EMERGENCY ROOM, PHYSICIAN ([id number]), society editor Joao Galeano ([id number]) on 09/11/2024 11:53:15 AM RADIOLOGY RESULTS 09/11/2024 9:43 AM CDT 09/11/2024 11:53 AM CDT us Sharan Pal PA-C ECG ORDERABLES Edited Result - Final RADIOLOGY RESULTS * (ABNORMAL) CBC with platelets and differential (09/11/2024 9:28 AM CDT) WBC Count 14.1(H) 4.0 - 11.0 10e3/uL 09/11/2024 9:40 AM CDT [facility] RBC Count 4.28 3.80 - 5.20 10e6/uL 09/11/2024 9:40 AM CDT [facility] Hemoglobin 13.1 11.7 - 15.7 g/dL 09/11/2024 9:40 AM CDT [facility] Hematocrit 37.2 35.0 - 47.0 % 09/11/2024 9:40 AM CDT [facility] MCV 87 78 - 100 fL 09/11/2024 9:40 AM CDT [facility] MCH 30.6 26.5 - 33.0 pg 09/11/2024 9:40 AM CDT [facility] MCHC 35.2 31.5 - 36.5 g/dL 09/11/2024 9:40 AM CDT [facility] RDW 13.0 10.0 - 15.0 % 09/11/2024 9:40 AM CDT [facility] Platelet Count 260 150 - 450 10e3/uL 09/11/2024 9:40 AM CDT [facility] % Neutrophils 82 % 09/11/2024 9:40 AM CDT [facility] % Lymphocytes 12 % 09/11/2024 9:40 AM CDT [facility] % Monocytes 5 % 09/11/2024 9:40 AM CDT [facility] % Eosinophils 0 % 09/11/2024 9:40 AM CDT [facility] % Basophils 0 % 09/11/2024 9:40 AM CDT [facility] % Immature Granulocytes 0 % 09/11/2024 9:40 AM CDT [facility] NRBCs per 100 WBC 0 <1 /100 025 9:40 AM CDT [facility] Absolute Neutrophils 11.6(H) 1.6 - 8.3 10e3/uL 09/11/2024 9:40 AM CDT [facility] Absolute Lymphocytes 1.7 0.8 - 5.3 10e3/uL 09/11/2024 9:40 AM CDT [facility] Absolute Monocytes 0.7 0.0 - 1.3 10e3/uL 09/11/2024 9:40 AM CDT [facility] Absolute Eosinophils 0.1 0.0 - 0.7 10e3/uL 09/11/2024 9:40 AM CDT [facility] Absolute Basophils 0.1 0.0 - 0.2 10e3/uL 09/11/2024 9:40 AM CDT [facility] Absolute Immature Granulocytes 0.0 <=0.4 10e3/uL 09/11/2024 9:40 AM CDT [facility] Absolute NRBCs 0.0 10e3/uL 09/11/2024 9:40 AM CDT LABORATORY Blood BLOOD SPECIMEN / Unknown Venipuncture / Unknown 09/11/2024 9:28 AM CDT 09/11/2024 9:31 AM CDT Sharan Pal PA-C LAB - BLOOD ORDERABLES Final Re sult Performing Organization Address City/[facility]/ZIP Co de Phone Number [facility] [address] Lab (1st floor, no room number) [place] [phone] * Troponin T, High Sensitivity (09/11/2024 9:28 AM CDT) [facility] Troponin T, High Sensitivity <6 <=14 ng/L 09/11/2024 9:59 AM CDT LABORATORY Comment: Either a High Sensitivity Troponin T baseline (0 hours) value = 100 ng/L, or an increase in High Sensitivity Troponin T = 7 ng/L at 2 hours compared to 0 hours (2-0 hours), suggests myocardial injury, and urgent clinical attention is required. If the 2-0 hours increase is <7 ng/L, a High Sensitivity Troponin T result above gender-specific reference ranges warrants further evaluation. Recommendations for further evaluation include correlation with clinical decision-making tool (e.g., HEART), a 3rd High Sensitivity Troponin T test 2 hours after the 2nd (a 20% change from baseline would represent concern), admission for observation, close PCC/cardiology follow-up, or urgent outpatient provocative testing. Blood BLOOD SPECIMEN / Unknown Venipuncture / Unknown 09/11/2024 9:28 AM CDT 09/11/2024 9:31 AM CDT Sharan Pal PA-C LAB - BLOOD ORDERABLES Final Re sult [facility] [address] Lab (1st floor, no room number) [place] [address], [place] * Lipase (09/11/2024 9:28 AM CDT) Lipase 14 13 - 60 U/L 09/11/2024 9:59 AM CDT [facility] Blood BLOOD SPECIMEN / Unknown Venipuncture / Unknown 09/11/2024 9:28 AM CDT 09/11/2024 9:31 AM CDT Sharan Pal PA-C LAB - BLOOD ORDERABLES Final Re sult [facility] [address] Lab (1st floor, no room number) [place] [address], [place] * (ABNORMAL) Comprehensive metabolic panel (09/11/2024 9:28 AM CDT) Sodium 138 135 - 145 mmol/L 09/11/2024 9:59 AM CDT LABORATORY Potassium 3.8 3.4 - 5.3 mmol/L 09/11/2024 9:59 AM CDT LABORATORY Carbon Dioxide (CO2) 19(L) 22 - 29 mmol/L 09/11/2024 9:59 AM CDT LABORATORY Anion Gap 17(H) 7 - 15 mmol/L 09/11/2024 9:59 AM CDT LABORATORY Urea Nitrogen 13.1 6.0 - 20.0 mg/dL 09/11/2024 9:59 AM CDT LABORATORY Creatinine 0.97(H) 0.51 - 0.95 mg/dL 09/11/2024 9:59 AM CDT LABORATORY GFR Estimate 85 >60 mL/min/1.7 3m2 09/11/2024 9:59 AM CDT LABORATORY Comment:eGFR calculated usin 2020 CKD-EPI equation. Calcium 9.6 8.8 - 10.4 mg/dL 09/11/2024 9:59 AM CDT LABORATORY Chloride 102 98 - 107 mmol/L 09/11/2024 9:59 AM CDT LABORATORY Glucose 93 70 - 99 mg/dL 09/11/2024 9:59 AM CDT LABORATORY Alkaline Phosphatase 67 40 - 150 U/L 09/11/2024 9:59 AM CDT LABORATORY AST 16 0 - 45 U/L 09/11/2024 9:59 AM CDT [facility] ALT 12 0 - 50 U/L 09/11/2024 9:59 AM CDT [facility] Protein Total 7.3 6.4 - 8.3 g/dL 09/11/2024 9:59 AM CDT [facility] Albumin 5.0 3.5 - 5.2 g/dL 09/11/2024 9:59 AM CDT [facility] Bilirubin Total 0.7 <=1.2 mg/dL 09/11/2024 9:59 AM CDT [facility] Blood BLOOD SPECIMEN / Unknown Venipuncture / Unknown 09/11/2024 9:28 AM CDT 09/11/2024 9:31 AM CDT Sharan BRICE-Gabby LAB - BLOOD ORDERABLES Final Re sult Performing Organization Address [facility]/ZIP Co de Phone Number [facility] [address] Lab (1st floor, no room number) [place] [phone] * Extra Purple Top Tube (09/11/2024 9:28 AM CDT) Hold Specimen [facility] 09/11/2024 10:31 AM CDT [facility] Blood BLOOD SPECIMEN / Unknown Venipuncture / Unknown 09/11/2024 9:28 AM CDT 09/11/2024 9:31 AM CDT Sharan BRICE-Gabby LAB - BLOOD ORDERABLES Final Re sult [facility] [address] Lab (1st floor, no room number) [place] [phone] * Extra Green Top ([place] Heparin) Tube (09/11/2024 9:28 AM CDT) Hold Specimen [facility] 09/11/2024 10:31 AM CDT [facility] Blood BLOOD SPECIMEN / Unknown Venipuncture / Unknown 09/11/2024 9:28 AM CDT 09/11/2024 9:31 AM CDT Sharan Gagnone PA-C LAB - BLOOD ORDERABLES Final Re sult Performing Organization Address [facility]/ZIP Co de Phone Number [facility] [address] Lab (1st floor, no room number) [place] [phone] [place] [address] * Extra Red Top Tube (09/11/2024 9:28 AM CDT) Hold Specimen [facility] 09/11/2024 10:31 AM CDT [facility] Blood BLOOD SPECIMEN / Unknown Venipuncture / Unknown 09/11/2024 9:28 AM CDT 09/11/2024 9:31 AM CDT Sharan Pal PA-C LAB - BLOOD ORDERABLES Final Re sult Performing Organization Address [facility]/ZIP Co de Phone Number [facility] [address] Lab (1st floor, no room number) [place] [phone] * Extra Blue Top Tube (09/11/2024 9:28 AM CDT) Hold Specimen [facility] 09/11/2024 10:31 AM CDT [facility] Blood BLOOD SPECIMEN / Unknown Venipuncture / Unknown 09/11/2024 9:28 AM CDT 09/11/2024 9:31 AM CDT Sharan Pal PA-C LAB - BLOOD ORDERABLES Final Re sult Performing Organization Address City/[facility]/ZIP Co de Phone Number 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 (H) documented in this encounter Administered Medications Inactive Administered Medications - up to 3 most recent administrations Medication Order MAR Action Action Date Dose Rate Site diphenhydrAMINE (BENADRYL) injection 12.5 mg 12.5 mg, Intravenous, ONCE, On Tue09/11/24 at 1045, For 1 dose $Given 09/11/2024 10:49 AM CDT 12.5 mg diphenhydrAMINE (BENADRYL) injection 25 mg 25 mg, Intravenous, ONCE, On Tue09/11/24 at 0945, For 1 dose $Given 09/11/2024 9:58 AM CDT 25 mg haloperidol lactate (HALDOL) injection 2.5 mg 2.5 mg, Intravenous, ONCE, Administer over 1 Minutes, On Tue09/11/24 at 1000, For 1 dose $Given 09/11/2024 9:58 AM CDT 2.5 mg ondansetron (ZOFRAN) injection 4 mg 4 mg, Intravenous, ONCE, Administer over 2-5 Minutes, On Tue09/11/24 at 1045, For 1 dose $Given 09/11/2024 10:45 AM CDT 4 mg sodium chloride 0.9% BOLUS 1,000 mL Intravenous, 1,000 mL, ONCE, at 1,000 mL/hr, Administer over 1 Hours, On Tue09/11/24 at 0940, For 1 dose $New Bag 09/11/2024 9:42 AM CDT 1,000 mLs 1000 mL/hr documented in this encounter Active and Recently Administered Medications Times are shown in CDT. Scheduled Medication Order 09/09/2024 09/10/2024 09/11/2024 diphenhydrAMINE (BENADRYL) injection 12.5 mg (COMPLETED) 12.5 mg, Intravenous, ONCE, On Tue09/11/24 at 1045, For 1 dose 1049 ($Given - Provi chad: Sandra Márquez RN) diphenhydrAMINE (BENADRYL) injection 25 mg (COMPLETED) 25 mg, Intravenous, ONCE, On Tue09/11/24 at 0945, For 1 dose 0958 ($Given - Provi chad: Sandra Márquez RN) haloperidol lactate (HALDOL) injection 2.5 mg (COMPLETED) 2.5 mg, Intravenous, ONCE, Administer over 1 Minutes, On Tue09/11/24 at 1000, For 1 dose 0958 ($Given - Provi chad: Sandra Márquez RN) ondansetron (ZOFRAN) injection 4 mg (COMPLETED) 4 mg, Intravenous, ONCE, Administer over 2-5 Minutes, On Tue09/11/24 at 1045, For 1 dose 1045 ($Given - Provi chad: Sandra Márquez RN) sodium chloride 0.9% BOLUS 1,000 mL (COMPLETED) Intravenous, 1,000 mL, ONCE, at 1,000 mL/hr, Administer over 1 Hours, On Tue09/11/24 at 0940, For 1 dose 0942 ($New Bag - Pro vider: Sandra Márquez RN)[id number] (Stopped - Provider: Sandra Márquez RN) documented in this encounter Additional Health Concerns Assessment Noted Time PHQ-9 Depression Total Score: 024 6:58 AM CDT documented as of this encounter Care Teams Security Architect Relationship Specialty Start Date End Date Reynaldo Moya MD [facility] [address] [place] [address] PCP - Mental Health/Behavioral Medicine Psychiatry 03/28/19 No Ref-Primary, Physician PCP - General 09/11/24 Ilya Muñoz PA-C [address] [place] [address] [place]K DIALLO [id number] Assigned PCP 08/14/23 documented as of this encounter
--- OUTSIDE RECORDS SUMMARY | 2024-09-13 11:00 | XMS_ITS | Encounter Summary ---
Author Organization [employer] Address [address], [place] [address] Care Team Providers Care Business Dean Name Role Phone Belle Diaz PA-C Primary Care Provider + [phone] Reason for Visit * Procedure/Equipment (Routine) - Incomplete Specialty Diagnoses / Procedures Referred By Contac t Referred To Contact Diagnoses Menorrhagia with regular cycle Procedures OBGYN Pelvic/Fretted Instrument Repairer Ultrasound nAjelica Davidson APRN, [address] [place] [address] Phone: tel: fax: Referral ID Status Reason Start Date Expiration Date V isits Requested Visits Authorized [id number] Incomplete 09/06/2024 12/06/2025 1 1 Encounter Details Date Type Department Care Team (Latest Contact Info) Description 09/13/2024 11:00 AM CDT Ancillary Procedure [place] tele rn Ultrasound [address] [place] [address] Anjelica Davidson APRN, MAY[address] [place], [place] [phone] Menorrhagia with regular cycle Social History Tobacco [...] Name Priority Date/Time Associated Diagnosis Comments OBGYN PELVIC/PAN GREASER ULTRASOUND Routine 09/13/2024 11:13 AM CDT Menorrhagia with regular cycle documented in this encounter Results * OBGYN Pelvic/Fretted Instrument Repairer Ultrasound (09/13/2024 11:13 AM CDT) Uterus AP Diameter (Height) 3.00 cm EXTERNAL RESULTS Uterus Longitudinal Diameter (Length) 6.90 cm EXTERNAL RESULTS Uterus Transverse Diameter (Width) 3.50 cm EXTERNAL RESULTS Uterus Volume 37.93 ml FISHERIES MANAGEMENT BIOLOGIST AL RESULTS Endometrium Thickness 5.20 mm EXTERNAL [...] from the original result was not included. PAN GREASER Ultrasound Exam performed on: 09/13/2024 Referring provider: Anjelica Davidson APRN, CNM Referring clinic: POWER GENERATION EQUIPMENT REPAIRER Clinical indications: Menorrhagia with regular cycle LMP: 08-31-2024 Cloth Finishing Range Tender(s) initials: KI The pelvic organs are imaged [...] menstruation documented in this encounter Care Teams Business Dean Relationship Specialty Start Date End Date Belle Diaz PA-C [address] [place] [address] PCP - General Physician International Operations Manager 08/15/21 documented as of this encounter
--- OUTSIDE RECORDS SUMMARY | 2024-09-13 14:40 | XMS_ITS | Encounter Summary ---
Author Organization [facility] er Address [address] [place] [address] Care Team Providers Care Brim Buster Name Role Phone Elsewhere, Pcp Primary Care Provider Unavailabl e Reason for Visit * Reason Comments Follow-up ED F/U Vomiting Cannabis hyperemesis syndrome Encounter Details Date Type Department Care Team (Late st Contact Info) Description 09/13/2024 2:40 PM CDT Office Visit [place] [address] [place] [address] Hansel Holden MD [address] [facility] [address] [place] [address] Moderate episode of recurrent major depressive disorder (HCC) (Primary Dx); Cannabis hyperemesis syndrome concurrent with and due to cannabis dependence (HCC) Social History Tobacco Use Types Packs/Day Years Used Date Smoking Tobacco: Never Smokeless Tobacco: Never Alcohol Use Standard Drinks/Week Comments Yes 0 (1 standard drink = 0.6 oz pur e alcohol) 10 drinks a week Social Connection and Isolat ion Panel [NHANES] Answer Date Recorded In a typical week, how many times do you talk on the phone with family, friends, or neighbors? Once a week 07/06/2023 How often do you get togethe r with friends or relatives? Never 07/06/2023 How often do you attend chur ch or jain services? More than 4 times per year 07/06/2023 Do you belong to any clubs o r organizations such as mormon groups, unions, fraternal or athletic groups, or school groups? No 07/06/2023 How often do you attend meet ings of the clubs or organizations you belong to? Never 07/06/2023 Are you , , di vorced, , never , or living with a partner? Never 07/06/2023 AUDIT-C Answer Date Recorded Q1: How often do you have a drink containing alc ohol? 2-4 times a month 07/06/2023 Q2: How many drinks containi ng alcohol do you have on a typical day when you are drinking? 3 or 4 07/06/2023 Q3: How often do you have si x or more drinks on one occasion? Less than monthly 07/06/2023 Overall Financial Resource Strain (CARDIA) Answe r Date Recorded How hard is it for you to pa y for the very basics like food, housing, medical care, and heating? Somewhat hard 07/06/2023 PHQ-2 Answer Date Recorded PHQ-9 Total Score 18 07/06/2023 [facility] [place] of Occupat ional Health - Occupational Stress Questionnaire Answer Date Recorded Do you feel stress - tense, restless, nervous, or anxious, or unable to sleep at night because your mind is troubled all the time - these days? Very much 07/06/2023 Exercise Vital Sign Answer Date Recorde d On average, how many days pe r week do you engage in moderate to strenuous exercise (like a brisk walk)? 5 days 07/06/2023 On average, how many minutes do you engage in exercise at this level? 60 min 07/06/2023 Hunger Vital Sign Answer Date Recorded Within the past 12 months, y ou worried that your food would run out before you got the money to buy more. Never true Within the past 12 months, t he food you bought just didn't last and you didn't have money to get more. Sometimes true PRAPARE - Transportation Answer Date Re corded In the past 12 months, has l ack of transportation kept you from medical appointments or from getting medications? No 06/21 In the past 12 months, has l ack of transportation kept you from meetings, work, or from getting things needed for daily living? No 07/06/2023 Housing Stability Vital Sign Answer Adilson e Recorded In the last 12 months, was t here a time when you were not able to pay the mortgage or rent on time? No 07/06/2023 In the past 12 months, how m any times have you moved where you were living? 2 07/06/2023 At any time in the past 12 [facility], were you homeless or living in a [facility]p (including now)? No 07/06/2023 Comments Unknown Sex and Gender Information Value Date Recorded Sex Assigned at Not on file Legal Sex Female 2:49 PM CDT Gender Identity Not on file Sexual Orientation Not on file documented as of this encounter Last Filed Vital Signs Vital Sign Reading Time Taken Comments Blood Pressure 144/93 09/13/2024 2:16 PM CDT Pulse 68 09/13/2024 2:16 PM CDT Temperature 37.6 C (99.6 F) 09/13/2024 2:16 PM CDT Respiratory Rate - - Oxygen Saturation 98% 09/13/2024 2:16 PM CDT Inhaled Oxygen Concentration - - Weight - - Height 165.1 cm (5' 5) 09/13/2024 2:16 PM CDT Body Mass Index - - documented in this encounter Progress Notes * Hansel Holden MD - 09/13/2024 2:40 PM CDT Jazmin Carroll is a 18 y.o., female here today for evaluation of her hyperemesis syndrome. I reviewed her medical record and she is had many many admissions for nausea and vomiting and abdominal pain she has also had quite a few admissions for behavioral health disorders most recently she was admitted and seen at the [place] emergency room for similar symptoms which had an extensive workup which was unremarkable. Unfortunately she is feeling wonderful at the moment her nausea and vomiting has not improved sinceher hospitalization last week and [place] she is taking all of her Zofran that was prescribed to her and her last dose was yesterday morning. She is unable to keep any food down and in quite severe abdominal pain. She tells me she has lost 12 pounds since the start of this episode. She has tried multiple psychiatric interventions and been admitted multiple times. She is undergoing treatment at the [facility] she has been on several antidepressants but unfortunately she says they make her feel depressed and suicidal. In terms of the treatment for her hyperemesis she says that antipsychotics have helped but unfortunately they give her such profound side effects that she does not want to take them especially droperidol and Haldol. No Known Allergies Past Medical History: Diagnosis Date Anorexia nervosa with bulimia (HCC) Anxiety Depression Insomnia PTSD (post-traumatic stress disorder) Social History Tobacco Use Smoking status: Never Smokeless tobacco: Never Vaping Use Vaping status: Every Day Substances: Nicotine Devices: Pre-filled or refillable cartridge Substance Use Topics Alcohol use: Yes Comment: 10 drinks a week Drug use: Not Currently Types: Marijuana No family history on file. Review of Systems Constitutional: Positive for diaphoresis, fatigue and unexpected weight change. Negative for chillsand fever. HENT: Negative for congestion, ear pain, nosebleeds, rhinorrhea, sinus pain, sore throat, trouble swallowing and voice change. Eyes: Negative for pain and visual disturbance. Respiratory: Negative for cough, chest tightness, shortness of breath and wheezing. Cardiovascular: Negative for palpitations and leg swelling. Gastrointestinal: Positive for abdominal pain, nausea and vomiting. Negative for blood in stool, constipation and diarrhea. Genitourinary: Negative for dysuria, flank pain, frequency, genital sores, hematuria, menstrual problem, vaginal bleeding and vaginal discharge. Musculoskeletal: Negative for arthralgias, back pain, joint swelling and neck pain. Skin: Negative for rash. Neurological: Negative for dizziness, tremors, syncope, speech difficulty, light-headedness, numbness and headaches. Objective Physical Exam Vitals reviewed. Constitutional: General: She is in acute distress. Appearance: Normal appearance. She is normal weight. She is ill-appearing and diaphoretic. HENT: Head: Normocephalic and atraumatic. Cardiovascular: Rate and Rhythm: Normal rate and regular rhythm. Pulses: Normal pulses. Heart sounds: Normal heart sounds. No murmur heard. No friction rub. No gallop. Pulmonary: Effort: Pulmonary effort is normal. Breath sounds: Normal breath sounds. No wheezing, rhonchi or rales. Abdominal: Comments: Bowel sounds were positive she was grabbing at her stomach throughout the exam she had subjective guarding and severe tenderness to palpation. Neurological: Mental Status: She is alert. Assessment/Plan Diagnoses and all orders for this visit: Moderate episode of recurrent major depressive disorder (HCC) Cannabis hyperemesis syndrome concurrent with and due to cannabis dependence (HCC) Unfortunately given her presentation today she is beyond the scope of care for this clinic we askedher if she felt safe driving and unfortunately due to the abdominal pain and profound intractable nausea and vomiting she does not feel safe driving which I concur with so we called an ambulance witha recommendation to take her to [facility] and the [facility]. 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
--- OUTSIDE RECORDS SUMMARY | 2024-09-13 16:04 | XMS_ITS | Encounter Summary ---
Author Organization [employer] Address [address] [address] Care Team Providers Care Drag Sawyer Name Role Phone Belle Diaz PA-C Primary Care Provider + [phone] Reason for Visit * Reason Comments Nausea Abdominal Pain Encounter Details Date Type Department Care Team ([facility] st Contact Info) Description 09/13/2024 4:04 PM CDT - 09/13/2024 5:35 PM CDT Emergency [facility] Emergency Dept [address] [place] [address] Discharge Disposition: Left Without Being Seen Social History Tobacco Use Types Packs/Day Years [...] Sign Reading Time Taken Comments Blood Pressure 131/57 09/13/2024 4:13 PM CDT Pulse 66 09/13/2024 4:13 PM CDT Temperature 36.8 C (98.2 F) 09/13/2024 4:13 PM CDT Respiratory Rate 20 09/13/2024 4:13 PM CDT Oxygen Saturation 99% 09/13/2024 4:13 PM CDT Inhaled Oxygen Concentration - - Weight - - Height - - Body Mass Index - - documented in this encounter Functional Status documented as of this encounter Medications at Time of Discharge ALBUterol sulfate HFA 108 (90 Base) MCG/ACT inhalerIndicatio ns:Asthma, exercise induced (HRC) Inhale 2 Puffs every 4 hours as needed for Wheezing or Shortness of Breath. 2 Each 4 08/28/2021 ARIPiprazole (ABILIFY) 2 MG tablet Take 1 Tablet (2 mg) by mouth daily. 30 Tablet 07/12/2024 citalopram (CELEXA) 10 MG tablet Take 1 Tablet (10 mg) by mouth daily. 90 Tablet 3 07/12/2024 ibuprofen (MOTRIN) 600 MG tablet Take 1 Tablet (600 mg) by mouth three times a day. 09/05/2024 lamoTRIgine (LAMICTAL) 25 MG tablet Weeks 1-2: 1 x 25 mg tab po q/day. Weeks 3-4: 2 x 25 mg (50 mg) tab po q/day. Weeks 5: 4 x 25 mg (100 mg) tab po qday. 70 Tablet 07/12/2024 levonorgestrel-e thinyl estrad (ALESSE) 0.1-20 MG-MCG tablet Take 1 Tablet by mouth daily. 84 Tablet 3 09/06/2024 6 documented as of this encounter ED Notes * Sadie Elliott - 09/13/2024 5:28 PM CDT Pt reports that the wait times are too long and will be calling her family to bring her to a different hospital. Pt encouraged to stay to see a provider but declined. IV removed, AMA paperwork filledand BTC aware. documented in this encounter Plan of Treatment Not on file documented as of this encounter Procedures Procedure Name Priority Date/Time Associated Diagnosis Comments BASIC METABOLIC PANEL STAT 09/13/2024 4:20 PM CDT COMPLETE BLOOD COUNT-NO DIFF STAT 09/13/2024 4:20 PM CDT documented in this encounter Results * (ABNORMAL) Basic Metabolic Panel (09/13/2024 4:20 PM CDT) Sodium 140 136 - 145 mmol/L 09/13/2024 4:54 PM T [facility] Potassium 3.8 3.5 - 5.1 mmol/L 09/13/2024 4:54 PM T [facility] Comment:Specimen slightly he molyzed. Hemolysis may affect result. Chloride 110(H) 98 - 109 mmol/L 09/13/2024 4:54 PM T [facility] CO2 12(L) 20 - 29 mmol/L 09/13/2024 4:[address] [facility] Anion Gap 18(H) 6 - 16 mmol/L 09/13/2024 4:54 PM T [facility] Calcium 10.0 8.4 - 10.4 mg/dL 09/13/2024 4:[address] [facility] BUN 10 7 - 26 mg/dL 09/13/2024 4:[address] [facility] Creatinine 0.79 0.55 - 1.02 mg/dL 09/13/2024 4:[address] [facility] Glucose 96 70 - 100 mg/dL 09/13/2024 4:[address] [facility] Comment:The given reference range is for the fasting state. Non-fasting reference range for glucose is 70 - 180 mg/dL. GFR, Estimated >60 >60 mL/min/1.7 3m2 09/13/2024 4:54 PM T [facility] Blood Venipuncture / Unknown 09/13/2024 4:20 PM CDT 09/13/2024 4:25 PM CDT us Peña Diaz MD LAB_1 Final R esult [address] [address], [facility] * (ABNORMAL) Complete Blood Count-No Diff (09/13/2024 4:20 PM CDT) WBC 15.3(H) 3.5 - 10.5 x10(9)/L 09/13/2024 4:28 PM T [facility] RBC 4.38 3.90 - 5.03 x10(12)/L 09/13/2024 4:[address] [facility] Hemoglobin 13.1 12.0 - 15.5 g/dL 09/13/2024 4:[address] [facility] HCT 37.2 34.9 - 44.5 % 09/13/2024 4:[address] [facility] MCV 84.9 80.0 - 100.0 fL 09/13/2024 4:28 PM T [facility] MCH 29.9 27.6 - 33.3 pg 09/13/2024 4:[address] [facility] MCHC 35.2 31.5 - 35.2 g/dL 09/13/2024 4:[address] [facility] RDW 12.8 11.9 - 15.5 % 09/13/2024 4:[address] [facility] Platelets 311 150 - 450 x10(9)/L 09/13/2024 4:[address] [facility] Automated NRBC 0 <=0 /100 WBC 09/13/2024 4:[address] [facility] Blood Venipuncture / Unknown 09/13/2024 4:20 PM CDT 09/13/2024 4:25 PM CDT Peña Diaz MD LAB_1 [place] [address], [facility] documented in this encounter Visit Diagnoses * Triage Assessment Note - Jonathan Delacruz, RN - 09/13/2024 4:12 PM CDT Chief complaint: Abdominal Pain/Nausea Symptoms/background/relevant history (narrative): Pt states for a week now, she has been having abdominal pain. Pain been unbearable. In the umbilicus area. States hot shower helps. Pt states having burning sensation while urinating. Pt moaning in pain while triaging. Was ambulatory and walked to drinking fountain when out in triage. What is most important to you about your ER visit today? See what is going on * Triage Assessment Note - Betito Hoffman RN - 09/13/2024 4:06 PM CDT Patient arrive via EMS from [facility] Per clinic: Suspected Cannabis hyperemesis Vomiting and abdominal pain Medic Fentanyl 50 mcg, 4mg Zofran Medic VSS documented in this encounter Active and Recently Administered Medications Care Teams Drag Sawyer Relationship Specialty Start Date End Date Belle Diaz PA-C [address] [place] [address] PCP - General Physician Cyber Systems Engineer 08/15/21 documented as of this encounter
--- OUTSIDE RECORDS SUMMARY | 2024-09-13 21:43 | XMS_ITS | Patient Health Record ---
Author Organization [email or web address] Address [address] [place] [address] Care Team Providers Care Coffee Urn Attendant Name Role Phone None, No PCP Primary Care Provider UnavailBo Valentine Unavailable [phone] HugoDarrinTeresita Unavailable [phone] Leticia Rider Unavailable [phone] Allergies No Known Allergies Results Component Value Reference Range Notes Test, Urine Reviewed date:12/02/2023 03:13:03 PM Interpretation:Negative Performing Lab: Notes/Report: Test, Urine Negative Negative Reason For Referral No Information Medications Medication SIG (Take, Route, Frequency, Duration) Notes Start Date End Date Status Ashwagandha Active Albuterol Active Social History Tobacco Use: Social History Observation Description Date Details (start date - stop date) Never Smoker NA - NA Tobacco Control (Standard) Question Answer Notes Tobacco use: Nonsmoker Vital Signs Blood pressure diastolic 64 mm Hg 11/30/2023 Height 65.50 in 11/30/2023 Blood pressure systolic 110 mm Hg 11/30/2023 Weight 164 lbs 11/30/2023 BMI 26.87 kg/m2 11/30/2023 Encounters Encounter Location Date Provider Diagnosis [address] [place] [id number] 12/02/2023 Leticia Rider [address] [id number] 12/02/2023 Leticia Rider Pre-operative laboratory examination Z01.812 and Encounter for IUD removal Z30.432 [facility] [address] [place] [address] 11/30/2023 Teresita Farb Procedure and treatment not carried out for other reasons Z53.8 and Presence of (intrauterine) contraceptive device Z97.5 [facility] [address] [facility] [address] [place], [place] [phone] 12/02/2023 Leticia Rider [facility] [address] [place], [place] [address] [address] 12/01/2023 Kielenrique Edvinjulianrose [address] [place] [address] 11/30/2023 Teresita Farb Retained intrauterin e contraceptive device (IUD) T83.39XA Assessments Encounter Date Diagnosis (ICD Code) Assessment Notes Treatment Notes Treatment Clinical Notes Section Notes 11/30/2023 Procedure and treatment not carried out for other reasons (ICD-10 - Z53.8) 11/30/2023 Presence of (intrauterine) contraceptive device (ICD-10 - Z97.5) 11/30/2023 Retained intrauterine contraceptive device (IUD) (ICD-10 - T83.39XA) 12/02/2023 Encounter for IUD removal (ICD-10 - Z30.432) -IUD was able to be removed in its entirety without hysteroscopy. -Minimal bleeding noted, pt tolerated procedure well. 12/02/2023 Pre-operative laboratory examination (ICD-10 - Z01.812) 11/30/2023 Other Call placed to on-call MD with description of above. MD recommended hysteroscopy D&C and potential intraop ultrasound if needed. Discussed with pt who agreed with plan. Will send note to production control scheduler. Warm packs provided to pt for comfort. Advised nothing in vagina including tampon for current menses. Pt denied dizziness or nausea and was able to leave clinic without issue. 11/30/2023 Other Surgeon: Leticia Rider Diagnosis: retained IUD ICD-10: T83.39XA Procedure:Hyster oscopy possible D&C, IUD removal CPT: 22522, [address] Special Equipment: Surgeon Notes: Location: [facility] [place] Hospitalization: outpatient Anesthesia: MSC Allergies: Health concerns: will complete H& day of Time requested (minutes):30 Consents needed: Height: Weight: Date of Surgery: Time of Surgery: Patient Informed: Primary MD: CELI Tier: 3 Plan Of Treatment No Information Insurance Providers Payer Name Payer Address Payer Phone Subscriber Number Group Number Insured Name Patient Relationship to Insured Coverage Start Date Coverage End Date [place] (Ins Bill) [address] [address] [place] [address] [id number] Jazmin Carroll Self - patient is the insured [place] [employer] (Ins. Bill) [address] [address] [place], [place] [id number] Jazmin Carroll Self - patient is the insured Medical (General) History Medical History History ICD Code depression asthma Surgical History Surgery Date(Month/Year) IUD removal under sedation 12/02/2023
--- OUTSIDE RECORDS SUMMARY | 2024-09-13 21:43 | XMS_ITS | Clinical Summary ---
Author Organization [place] Address [address] [place] [address]. [place] [address] Care Team Providers Care Business Operations Consultant Name Role Phone Reynaldo Moya MD Unavailable + Ilya Muñoz PA-C Unavailable [phone] No Ref-Primary, Physician Primary Care Provider Allergies Active Allergy Reactions Criticality Noted Date Comments No Known Allergies 2003 Medications albuterol (PROAIR HFA/PROVENTIL HFA/VENTOLIN HFA) 108 (90 Base) MCG/ACT inhaler Inhale 2 puffs into the lungs every 6 hours as needed 10/04/2017 Active hydrOXYzine (ATARAX) 25 MG tabletIndicatio ns:Insomnia due to other mental disorder,Anxiet y Take 1 tablet (25 mg) by mouth 4 times daily as needed for anxiety 50 tablet 04/01/2019 Active melatonin 3 MG tablet Take 3 mg by mouth At Bedtime Active celecoxib (CELEBREX) 200 MG capsuleIndicati ons:Pelvic pain in female Take 1 capsule (200 mg) by mouth 2 times daily for 10 days 20 capsule 08/04/2023 Active ondansetron (ZOFRAN ODT) 4 MG ODT tab Take 1 tablet (4 mg) by mouth every 8 hours as needed for nausea. 10 tablet 09/11/2024 Active Active Problems Problem Noted Date Diagnosed Date Hypokalemia 10/27/2022 Recurrent abdominal pain 10/27/2022 Marijuana use 10/27/2022 Suicidal ideation 03/27/2019 Suicide attempt by acetamino phen overdose, initial encounter 03/25/2019 Overdose of salicylate, inte ntional self-harm, initial encounter 03/23/2019 UTI (urinary tract infection) 08/27/2007 Encounters Date Type Department Care Team Description 09/11/2024 9:20 AM CDT - 09/11/2024 12:21 PM CDT Emergency [facility] Emergency Dept [address] [place] [address] Sharan Pal PA-C Cannabis hyperemesis syndrome concurrent with and due to cannabis abuse (H) Discharge Disposition: Home or Self Care 09/11/2024 Travel from Last 3 Months Immunizations Immunization Administration Dates Next Due Comvax (HIB/HepB) 2003 DTAP (<7y) 05/08/2008,09/05/2007,03/26/2004 DTaP/HepB/IPV 06/22/2004,03/26/2004 HEPA 05/08/2008,09/05/2007 HIB (PRP-T) 06/22/2004,03/26/2004 HepB 06/22/2004,03/26/2004 Influenza Vaccine >6 months,quad, PF 03/26/2019 MMR (MMRII) 05/08/2008,09/05/2007 Pneumococcal (PCV 7) 09/05/2007,06/22/2004,12/26 Poliovirus, inactivated (IPV) 05/08/2008, 004 Varicella (Varivax) 05/08/2008,09/05/2007 Family History Medical History Relation Comments Family History Negative Father Diabetes Maternal Grandfather Family History Negative Mother Glaucoma No family hx of Macular Degeneration No family hx of Relation Status Comments Father Maternal Grandfather Mother Social History Tobacco Use Types Packs/Day Years [...] in an abandoned building, in an overnight fdc, or couch-surfing.) Yes 08/04/2023 Are you worried [...] on file Legal Sex Female 4:34 AM MAMMOGRAPHY TECHNOLOGIST Gender Identity Not on file Sexual Orientation Not on file Last Filed Vital Signs Vital Sign Reading Time Taken Comments Blood Pressure 148/84 09/11/2024 10:00 AM CDT Pulse 88 09/11/2024 11:00 AM CDT Temperature 36.9 C (98.5 F) 09/11/2024 9:26 AM CDT Respiratory Rate 14 09/11/2024 11:00 AM CDT Oxygen Saturation 98% 09/11/2024 11:00 AM CDT Inhaled Oxygen Concentration - - Weight 79.7 kg (175 lb 9.6 oz) 08/04/2023 7:01 A M CDT Height 166 cm (5' 5.35) 08/04/2023 7:01 AM CDT Body Mass Index 28.91 08/04/2023 7:01 AM CDT Plan of Treatment Health Maintenance Due Date Last Done Comments ANNUAL REVIEW OF HM ORDERS 2003 HIV SCREENING 10/13/2018 MENINGITIS B VACCINE (1 of 2 - Standard) 2019 HEPATITIS C SCREENING 10/13/2021 COVID-19 VACCINE (2 - season) 2023 05/27/2023 PHQ-2 (once per calendar year) 2024 08/04/2023, 08/04/2023 YEARLY PREVENTIVE VISIT 05/26/2024 05/27/19 24, 10/05/2016, 05/08/2008, Additional history exists INFLUENZA VACCINE (#1) 2024 11/12/2022, 2019 DTAP/TDAP/TD VACCINE (7 - Td or Tdap) 09/30/2025 10/01/2015, 05/08/2008, 09/05/2007, Additional history exists ADVANCE CARE PLANNING 10/28/2027 10/27/2022 ZOSTER VACCINE (1 of 2) 10/13/2053 HEPATITIS B VACCINE Completed 06/22/2004, 06/22/2004, 06/22/2004, Additional history exists HPV VACCINE Completed 09/05/2019, 10/04/2017 MENINGITIS VACCINE Completed 08/28/2021, 0 08/28/2021, 10/01/2015, Additional history exists PNEUMOCOCCAL VACCINE: PEDIATRICS (0 to 5 YEARS) AND AT-RISK PATIENTS (6 to 49 YEARS) Aged Out 05/27/2023, 09/05/2007, 06/22/2004, Additional history exists No longer eligible based on patient's age to complete this topic CHLAMYDIA SCREENING Discontinued 07/23/2023, 0 Procedures Procedure Name Priority Date/Time Associated Diagnosis Comments EKG 12-LEAD, TRACING ONLY STAT 09/11/2024 9:43 AM CDT CBC WITH PLATELETS & DIFFERENTIAL STAT 09/11/2024 9:28 AM CDT CBC WITH PLATELETS AND DIFFERENTIAL STAT 09/11/2024 9:28 AM CDT TROPONIN T, HIGH SENSITIVITY STAT 09/11/2024 9:28 AM CDT LIPASE STAT 09/11/2024 9:28 AM CDT COMPREHENSIVE METABOLIC PANEL STAT 09/11/2024 9:28 AM CDT EXTRA PURPLE TOP TUBE STAT 09/11/2024 9:28 AM CDT EXTRA GREEN TOP (LITHIUM HEPARIN) TUBE STAT 09/11/2024 9:28 AM CDT EXTRA RED TOP TUBE STAT 09/11/2024 9: 28 AM CDT EXTRA BLUE TOP TUBE STAT 09/11/2024 9 :28 AM CDT EXTRA TUBE STAT 09/11/2024 9:28 AM CDT CHLAMYDIA TRACHOMATIS PCR Routine 03/29/2019 2:52 PM MAMMOGRAPHY TECHNOLOGIST from Last 3 Months or Most Recently Relevant to Health Maintenance Results * EKG 12-lead, tracing only (09/11/2024 9:43 AM CDT) Systolic Blood Pressure mmHg RADIOLOGY RESULTS Diastolic Blood Pressure mmHg RADIOLOGY RESULTS Ventricular Rate 57 BPM RAD IOLOGY RESULTS Atrial Rate 57 BPM RADIOLOG Y RESULTS LA Interval 144 ms RADIOLOG Y RESULTS QRS Duration 86 ms RADIOLO GY RESULTS QT 432 ms RADIOLOGY RESULTS QTc 420 ms RADIOLOGY RESULTS P [place] degrees RADIOLOGY RESULTS R AXIS 80 degrees RADIOLOGY RESULTS T [place] 57 degrees RADIOLOGY RESULTS Interpretation ECG Sinus bradycardia with sinus arrhythmia Otherwise normal ECG When compared with ECG of 26-Oct-2022 22:28, No significant change was found Confirmed by - EMERGENCY ROOM, PHYSICIAN ([id number]), market editor Joao Galeano ([id number]) on 09/11/2024 11:53:15 AM RADIOLOGY RESULTS 09/11/2024 9:43 AM CDT 09/11/2024 11:53 AM CDT Sharan Pal PA-C ECG ORDERABLES Edited Result - Final Performing Organization Address [facility]/ZIP Co de Phone Number RADIOLOGY RESULTS * Extra Purple Top Tube (09/11/2024 9:28 AM CDT) Hold Specimen [facility] 09/11/2024 10:31 AM CDT [facility] Blood BLOOD SPECIMEN / Unknown Venipuncture / Unknown 09/11/2024 9:28 AM CDT 09/11/2024 9:31 AM CDT Sharan BRICE-C LAB - BLOOD ORDERABLES Final Re sult Performing Organization Address [facility] de Phone Number [facility] [address] Lab (1st floor, no room number) [address] * Extra Green Top (Romney Heparin) Tube (09/11/2024 9:28 AM CDT) Hold Specimen [facility] 09/11/2024 10:31 AM CDT [facility] Blood BLOOD SPECIMEN / Unknown Venipuncture / Unknown 09/11/2024 9:28 AM CDT 09/11/2024 9:31 AM CDT Sharan Gagnone PA-C LAB - BLOOD ORDERABLES Final Re sult Performing Organization Address [facility]/ZIP Co de Phone Number [facility] [address] Lab (1st floor, no room number) [address] * Extra Red Top Tube (09/11/2024 9:28 AM CDT) Hold Specimen [facility] 09/11/2024 10:31 AM CDT [facility] Blood BLOOD SPECIMEN / Unknown Venipuncture / Unknown 09/11/2024 9:28 AM CDT 09/11/2024 9:31 AM CDT Sharan BRICE-C LAB - BLOOD ORDERABLES Final Re sult LABORATORY [facility] [address] Lab (1st floor, no room number) [address] * Extra Blue Top Tube (09/11/2024 9:28 AM CDT) Hold Specimen [facility] 09/11/2024 10:31 AM CDT [facility] Blood BLOOD SPECIMEN / Unknown Venipuncture / Unknown 09/11/2024 9:28 AM CDT 09/11/2024 9:31 AM CDT Sharan BRICE-C LAB - BLOOD ORDERABLES Final Re sult Performing Organization Address [facility]/ZIP Co de Phone Number LABORATORY [facility] [address] Lab (1st floor, no room number) [address] * (ABNORMAL) CBC with platelets and differential [...] NRBCs 0.0 10e3/uL 09/11/2024 9:40 AM CDT [facility] Blood BLOOD SPECIMEN / Unknown Venipuncture / Unknown 09/11/2024 9:28 AM CDT 09/11/2024 9:31 AM CDT us Sharan Pal PA-C LAB - BLOOD ORDERABLES Final Re sult [facility] [address] Lab (1st floor, no room number) [place] [address] * Troponin T, High Sensitivity (09/11/2024 9:28 AM CDT) Troponin T, High Sensitivity <6 <=14 ng/L [...] ORDERABLES Final Re sult Performing Organization Address [facility]/ZIP Co de Phone Number LABORATORY [facility] [address] Lab (1st floor, no room number) [place] [address] * Lipase (09/11/2024 9:28 AM CDT) Lipase 14 13 - 60 U/L 09/11/2024 9:59 AM CDT LABORATORY Blood BLOOD SPECIMEN / Unknown Venipuncture / Unknown 09/11/2024 9:28 AM CDT 09/11/2024 9:31 AM CDT Sharan BRICE-C LAB - BLOOD ORDERABLES Final Re sult [facility] [address] Lab (1st floor, no room number) [place] [address], [facility] * (ABNORMAL) Comprehensive metabolic panel (09/11/2024 [...] - 0.95 mg/dL 09/11/2024 9:59 AM CDT [facility] GFR Estimate 85 >60 mL/min/1.7 3m2 09/11/2024 9:59 AM CDT [facility] Comment:eGFR calculated us2020 CKD-EPI equation. Calcium 9.6 8.8 - 10.4 mg/dL 09/11/2024 9:59 AM CDT LABORATORY Chloride 102 98 - 107 mmol/L 09/11/2024 9:59 AM CDT LABORATORY Glucose 93 70 - 99 mg/dL 09/11/2024 9:59 AM CDT LABORATORY Alkaline Phosphatase 67 40 - 150 U/L 09/11/2024 9:59 AM CDT LABORATORY AST 16 0 - 45 U/L 09/11/2024 9:59 AM CDT LABORATORY ALT 12 0 - 50 U/L 09/11/2024 9:59 AM CDT LABORATORY Protein Total 7.3 6.4 - 8.3 g/dL 09/11/2024 9:59 AM CDT LABORATORY Albumin 5.0 3.5 - 5.2 g/dL 09/11/2024 9:59 AM CDT LABORATORY Bilirubin Total 0.7 <=1.2 mg/dL 09/11/2024 9:59 AM CDT LABORATORY Blood BLOOD SPECIMEN / Unknown Venipuncture / Unknown 09/11/2024 9:28 AM CDT 09/11/2024 9:31 AM CDT Sharan Pal PA-C LAB - BLOOD ORDERABLES Final Re sult LABORATORY [facility] [address] [facility] Lab (1st floor, no room number) [place] [address] * Chlamydia trachomatis PCR (03/29/2019 2:52 PM MAMMOGRAPHY TECHNOLOGIST) Specimen Description Urine 03/29/2019 3:31 PM MAMMOGRAPHY TECHNOLOGIST [facility] Chlamydia Trachomatis PCR Negative NEG^Negat garima 03/30/2019 1:20 PM MAMMOGRAPHY TECHNOLOGIST [facility] Comment: Negative for C. trachomatis rRNA by fire protection specialist mediated amplification. A negative result by fire protection specialist mediated amplification does not preclude the presence of C. trachomatis infection because results are dependent on proper and adequate collection, absence of inhibitors, and sufficient rRNA to be detected. Urine specimen (specimen) 03/29/2019 2:52 PM MAMMOGRAPHY TECHNOLOGIST 03/29/2019 3:30 PM MAMMOGRAPHY TECHNOLOGIST us Kari Chun PA-C LAB - MICRO GENERAL ORDERABLE S Final Result Performing Organization Address [facility] Co de Phone Number [facility] [address] [place], [place] [id number] [place], [place] [address] [place] [address] from Last 3 Months or Most Recently Relevant to Health Maintenance Insurance [employer] [place] [facility] Advance Directives For more information, please contact: [phone] * Full Code (Latest Code Status on File) Date Activated Date Inactivated Comments 10/27/2022 6:53 PM 10/28/2022 6:03 PM All basic and advanced life-sustaining interventions are performed as appropriate Question Answer Comments Code status determined by: Discussion with patie nt/ legal decision maker * Full Code Date Activated Date Inactivated Comments 03/27/2019 9:25 PM 04/02/2019 4:29 PM Question Answer Comments Code status determined by: Other (please documen t) * Full Code Date Activated Date Inactivated Comments 03/27/2019 2:17 PM 03/27/2019 8:33 PM Question Answer Comments Code status determined by: Discussion with patie nt/legal decision maker Care Teams Business Operations Consultant Relationship Specialty Start Date End Date Reynaldo Moya MD [facility] [address] [place] [address] PCP - Mental Health/Behavioral Medicine Psychiatry 03/28/19 No Ref-Primary, Physician PCP - General 09/11/24 Ilya Muñoz PA-C [address] [place] [address] KIRK DIALLO [id number] Assigned PCP 08/14/23
--- OUTSIDE RECORDS SUMMARY | 2024-09-13 21:43 | XMS_ITS | Clinical Summary ---
Author Organization [employer] [facility] Address [address] [place] [address] Care Team Providers Care Tree Topper Name Role Phone [facility] Care Provider [phone] Allergies No known active allergies Medications albuterol (PROVENTIL) 0.083 % neb solution 08/04/19 21 Active albuterol HFA (PRO-AIR; VENTOLIN; PROVENTIL) 90 mcg/actuation inhaler Inhale 2 Puffs by mouth every 4 hours if needed. 09/05/19 20 Active melatonin 3 mg tablet Take 3 mg by mouth. 04/01/19 20 Active prazosin (MINIPRESS) 2 mg capsule 01/28/20 21 Active fluticasone propionate (Flovent HFA) 110 mcg/Actuation inhaler Take 2 Puffs by mouth. 11/02/19 21 Active benzonatate (Tessalon Perles) 100 mg capsuleIndications :Acute non-recurrent ethmoidal sinusitis Take 1 Capsule (100 mg) by mouth 3 times daily if needed for Cough. 21 Capsule 03/14/19 22 Active Additional Information Patient not taking.Reported on 08/25/2022 albuterol HFA (Ventolin HFA) 90 mcg/actuation inhalerIndications :Acute non-recurrent ethmoidal sinusitis Inhale 2 Puffs by mouth 4 times daily if needed for Wheezing 1st choice. 1 Each 03/14/19 22 Active albuterol-ipratrop ium (DUONEB) (2.5-0.5 mg) in 3 mL NEBULIZATION solutionIndication s:Exacerbation of asthma, unspecified asthma severity, unspecified whether persistent (HC) Inhale 3 mL via a nebulizer every 4 hours if needed for Shortness Of Breath or Wheezing. 540 mL 3 01/24/20 22 Active predniSONE (DELTASONE) 20 mg tabletIndications: Exacerbation of asthma, unspecified asthma severity, unspecified whether persistent (HC) Take 1 Tablet (20 mg) by mouth two times daily with meals. Twice daily should be in the morning and late afternoon 10 Tablet 1 01/24/20 22 Active ondansetron (ZOFRAN ODT) 4 mg disintegrating tabletIndications: Nausea and vomiting, unspecified vomiting type Place 1 Tablet (4 mg) on the tongue every 8 hours if needed for Nausea/Vomiting . 10 Tablet 08/26/19 23 Active omeprazole (PRILOSEC) 20 mg Delayed-Release capsuleIndications :Nausea and vomiting, unspecified vomiting type,Epigastric abdominal pain Take 1 Capsule (20 mg) by mouth once daily before a meal. 30 Capsule 08/26/19 23 Active Social History Tobacco Use Types Packs/Day Years Used Date Smoking Tobacco: Every Day Cigarettes Smokeless Tobacco: Never Tobacco Cessation:Ready to Q uit: Not Asked; Counseling Given: Not Answered Alcohol Use Standard Drinks/Week Comments Yes 0 (1 standard drink = 0.6 oz pur e alcohol) Socially Interpersonal Safety Answer Date Record ed Are you being hit, kicked, p ushed or yelled at (see row info)? 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 Gender Identity Not on file Sexual Orientation Not on file Obstetrics History Last Filed Vital Signs Vital Sign Reading Time Taken Comments Blood Pressure 112/62 12/08/2023 1:02 PM CDT Pulse 68 12/08/2023 1:02 PM CDT Temperature 36.6 C (97.9 F) 12/08/2023 1:02 PM CDT Respiratory Rate 16 12/08/2023 1:02 PM CDT Oxygen Saturation 98% 12/08/2023 1:02 PM CDT Inhaled Oxygen Concentration - - Weight 72.6 kg (160 lb) 12/08/2023 1:02 PM CDT Height 165.1 cm (5' 5) 12/08/2023 1:02 PM CDT Body Mass Index 26.63 12/08/2023 1:02 PM CDT Plan of Treatment Health Maintenance Due Date Last Done Comments Well Child Check for age 3-20 09/12/2006 Tetanus booster 10/13/2014 Depression screening for age 12+ 2015 HIV for age 15-65 10/13/2018 HPV series for age 9-26 (1 - 3-dose series) 10/13/2018 Chlamydia for age 16-24 2019 BMI (ht and wt on same day) for age 18+ 10/13/2021 Hepatitis C screening for ag e 18-79 10/13/2021 Hepatitis B series for 19+ ( 1 of 3 - 19+ 3-dose series) 10/13/2022 Pneumococcal series for age 6-49 (1 of 2 - PCV) 10/13/2022 COVID-19 vaccine series (2 - 2023- season) 2023 05/27/2023 Influenza Vaccine (#1) 2024 Meningococcal series for age 11-21 Aged Out No longer eligible based on patient's age to complete this topic Insurance [employer] Care Teams Tree Topper Relationship Specialty Start Date End Date [address] [place] [address] PCP - General 07/23/23
--- OUTSIDE RECORDS SUMMARY | 2024-09-13 21:43 | XMS_ITS | Clinical Summary ---
Author Organization [facility] Address [address] [place] [id number] Care Team Providers Care Leach Runner Name Role Phone None Reported, Pcp Primary Care Provider Unavail able Source Comments Patient records contain information from all sites at [facility]. For routine questions regarding patient records, call [phone] during business hours, M-F 8:00 AM - 5:00 PM Central Time. Record requests for emergency care only can be directed to [phone] at any time.[facility] Allergies No known active allergies Medications OLANZapine (ZyPREXA ZYDIS) 5 mg disintegrating tablet Dissolve 5 mg in the mouth at bedtime. Active dicyclomine (BENTYL) 10 mg capsule Take 10 mg by mouth 4 (four) times a day. Active omeprazole (PriLOSEC) [address] capsule Take 20 mg by mouth every morning before breakfast. Active FLUoxetine (PROzac) 20 mg capsule Take 20 mg by mouth daily. Active guanFACINE (TENEX) 2 mg tablet Take 2 mg by mouth at bedtime. Active ibuprofen (ADVIL,MOTRIN) 200 mg capsule Take 600 mg by mouth every 6 (six) hours as needed for pain. Active hydrOXYzine (ATARAX) 25 mg tablet Take 25 mg by mouth. 04/01/19 20 Active melatonin 3 mg tablet Take 3 mg by mouth. 04/01/19 20 Active ondansetron ODT (ZOFRAN-ODT) 4 mg disintegrating tablet Dissolve 1 tablet (4 mg total) in the mouth every 8 (eight) hours as needed for nausea or vomiting for up to 30 doses. 30 tablet 05/03/19 24 Active promethazine (PHENERGAN) 25 mg tablet Take 1 tablet (25 mg total) by mouth every 6 (six) hours as needed for nausea or vomiting (Headache). 20 tablet 05/03/19 24 Active prochlorperazine (Compazine) 25 mg suppository Insert 1 suppository (25 mg total) into the rectum every 12 (twelve) hours as needed for nausea or vomiting. 12 suppository 09/07/19 25 Active ondansetron ODT (Zofran-ODT) 4 mg disintegrating tablet Dissolve 1 tablet (4 mg total) in the mouth every 12 (twelve) hours. 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 Cyclical Vomiting Syndrome Unrelated To Migraine (Primary Dx); Nausea And Vomiting; Abdominal Pain Discharge Disposition: Home or Self Care from Last 3 Months Immunizations Immunization Administration Dates Next Due 9vHPV 09/05/2019,10/04/2017 DTaP (Infanrix, Tripedia) 05/08/2008,,06/22/2004,2004,2003 DTaP / Hep B / IPV (Pediarix) 06/22/2004, 005 HepA Pediatric/Adolescent 05/08/2008,09/05/2007 HepA, Unspecified 05/08/2008,09/05/2007 Hib (PRP-T) (ACTHIB, HIBERIX) 06/22/2004, 005 Hib, Unspecified 2003 Hib-HepB 2003 IPV 05/08/2008, 5,03/26/2004,2003 MCV4 (Menveo) 08/28/2021,10/01/2015 MMR 05/08/2008,09/05/2007 PCV7 (discontinued) 09/05/2007,06/22/2004,2003 Tdap 10/01/2015 AZUL 05/08/2008,09/05/2007 influenza trivalent vaccine (6 months and older)(PF) 11/03/2011 influenza vaccine quad (FLUZONE/FLUARIX) (6 months and older)(PF) 11/12/2022,03/26/2019 Social History Tobacco Use Types Packs/Day Years Used Date Smoking Tobacco: Never Smokeless Tobacco: Never Tobacco Cessation:Counseling Given: Not Answered Alcohol Use Standard Drinks/Week Comments Yes 3 [...] - - Body Mass Index - - Plan of Treatment Health Maintenance Due Date Last Done Comments Chlamydia and Gonorrhea Screening 2003 Depression Monitoring (PHQ-9) 2003 HIV Screening 2003 Hepatitis C Screening 2003 TB Screening during Well Chi ld Visit 2003 1 week Well Child Check-Up 2003 1 month Well Child Check-Up 2003 2 month Well Child Check-Up 2003 4 month Well Child Check-Up 01/14/2004 9 month Well Child Check-Up 06/13/2004 15 month Well Child Check-Up 12/13/2004 18 month Well Child Check-Up 03/15/2005 2 year Well Child Check-Up 09/12/2005 30 month Well Child Check-Up 03/15/2006 3 year Well Child Check-Up 09/12/2006 Well Child Check-Up Complete d in Past Year 09/12/2006 5 year Well Child Check-Up 09/12/2008 6 year Well Child Check-Up 09/12/2009 7 year Well Child Check-Up 09/12/2010 8 year Well Child Check-Up 09/13/2011 10 year Well Child Check-Up 09/12/2013 12 year Well Child Check-Up 09/13/2015 13 year Well Child Check-Up 09/12/2016 14 year Well Child Check-Up 09/12/2017 Vision Screening during Well Child Visit 10/13/2017 15 year Well Child Check-Up 09/12/2018 17 year Well Child Check-Up 09/12/2020 18 year Well Child Check-Up 09/12/2021 19 year Well Child Check-Up 09/12/2022 Pneumococcal vaccine (0-49 y ears) (1 of 2 - PCV) 10/13/2022 09/05/2007, 06/22/2004, 2003 Asthma Action Plan 05/03/2023 Asthma Control Test Questionnaire 05/03/2023 Asthma Management/Exacerbati on Questionnaire (AMQ/AEQ) 05/03/2023 20 year Well Child Check-Up 09/13/2023 COVID-19 Vaccine (2 - 2023-2 5 season) 2023 05/27/2023 Depression Monitoring (PHQ-9 for quality tracking) 02/22/2024 21 year Well Child Check-Up 09/12/2024 Well Child Check-Up (WCC) 09/12/2024 Influenza Vaccine (#1) 2024 3, 03/26/2019, 11/03/2011 Glucose Test for Med Monitoring 09/06/2025 09/06/2024, 05/04/2023, 05/03/2023, Additional history exists DTaP,Tdap,and Td Vaccines (7 - Td or Tdap) 09/30/2025 10/01/2015, 05/08/2008, 09/05/2007, Additional history exists Hepatitis B Vaccines Completed 06/22/2004, 06/22/2004, 03/26/2004, Additional history exists Hepatitis A Vaccines Completed 05/08/2008, 05/08/2008, 09/05/2007, Additional history exists IPV Vaccines Completed 05/08/2008, 03/2004, 06/22/2004, Additional history exists Varicella Vaccines Completed 05/08/2008, 09/05/2007 HPV Vaccines Completed 09/05/2019, 10/04/2017 Meningococcal Vaccine Completed 08/28/2021, 016 Anemia/Iron Deficiency Scree yaneth During Well Child Visit (if High Risk Menstruating Female) Completed 09/06/2024, 12/08/2023, 07/23/2023, Additional history exists Procedures Procedure Name Priority Date/Time Associated Diagnosis Comments MAGNESIUM, S STAT 09/06/2024 8:03 PM CDT CBC WITH DIFFERENTIAL, B STAT 09/06/2024 8:03 PM CDT BASIC METABOLIC PANEL, S/P STAT 09/06/2024 8:03 PM CDT from Last 3 Months Results * (ABNORMAL) CBC with Differential, Blood (09/06/2024 8:03 PM CDT) Hemoglobin 13.1 11.6 - 15.0 g/dL 09/06/2024 [...] D.N.P. LAB BLOOD AD D-ON Final Result [facility] [address] [place] [id number], [facility] CNFL [facility] in [address] [address] * Magnesium (09/06/2024 8:03 PM CDT) Magnesium, P 2.1 1.7 - 2.3 mg/dL 09/06/2024 8:23 PM CDT CNFL Blood (Blood, Venous) 09/06/2024 8:03 PM CDT 09/06/2024 8:05 PM CDT us Gabby Stack APRN.N.Rachel., D.N.P. LAB BLOOD AD D-ON Final Result [facility] [address] [place] [phone], [facility] CNFL [facility] in [address] [address] * (ABNORMAL) Basic Metabolic Panel (09/06/2024 8:03 [...] PM CDT 09/06/2024 8:05 PM CDT us Gabby Stack APRN.N.P., Frank.NRoberatP. LAB BLOOD AD D-ON Final Result [facility] [address] [place] [id number], [place] CNFL [facility] in [place] [id number] [place] [address] [address] [place] [address] from Last 3 Months Insurance [facility] Care Teams Leach Runner Relationship Specialty Start Date End Date None Reported, Pcp PCP - General Family Medicine 09/06/24
--- OUTSIDE RECORDS SUMMARY | 2024-09-13 21:43 | XMS_ITS | Clinical Summary ---
Author Organization [facility] Address [address] [place] [id number] Care Team Providers Care Senior Compensation Analyst Name Role Phone Elsewhere, Pcp Primary Care Provider Unavailabl e Allergies No known active allergies Medications Ibuprofen 200 MG capsule Take 600 mg by mouth every 6 hours as needed Active melatonin 3 MG tablet Take 1 tablet (3 mg total) by mouth Active sertraline (Zoloft) 50 MG tabletIndication s:Generalized anxiety disorder,Current moderate episode of major depressive disorder, unspecified whether recurrent (HCC) Take 1 tablet (50 mg total) by mouth 1 (one) time each day 30 tablet 4 Active Additional Information Patient not taking.Reported on 09/13/2024 sertraline (Zoloft) 100 MG tabletIndication s:Moderate episode of recurrent major depressive disorder (HCC),Generalize d anxiety disorder Take 1 tablet (100 mg total) by mouth 1 (one) time each day 90 tablet 4 Active Additional Information Patient not taking.Reported on 09/13/2024 ondansetron ODT (ZOFRAN-ODT) 4 MG dispersible tablet Take 1 tablet (4 mg total) by mouth 5 09/15/19 25 Active prochlorperazine (COMPAZINE) 25 MG suppository Insert 1 suppository (25 mg total) into the rectum every 12 hours as needed 5 Active Active Problems Problem Noted Date Diagnosed Date Cannabis hyperemesis syndrom e concurrent with and due to cannabis dependence 09/13/2024 Current moderate episode of major depressive dis order 05/27/2023 Assessment & Plan (07/06/2023 11:28 AM CDT): Psychological condition is slightly improving. Regular aerobic exercise. Medication changes per orders. Psychological condition will be reassessed in 4 weeks. Start Sertraline 100 mg daily instead of 50 mg daily Follow up in 4-6 weeks Assessment & Plan (05/27/2023 4:38 PM CDT): Psychological condition is worsening. Medication changes per orders. Referral to psychological counseling. Referral to psychiatry. Psychological condition will be reassessed in 4 weeks. Start Sertraline (Zoloft) 50 mg tablet daily Generalized anxiety disorder 05/27/2023 Assessment & Plan (07/06/2023 11:28 AM CDT): Psychological condition is slightly improving . Regular aerobic exercise. Medication changes per orders. Psychological condition will be reassessed in 4 weeks. Start Sertraline 100 mg daily instead of 50 mg daily Follow up in 4-6 weeks Assessment & Plan (05/27/2023 4:37 PM CDT): Psychological condition is worsening. Medication changes per orders. Referral to psychological counseling. Referral to psychiatry. Psychological condition will be reassessed in 4 weeks. Start Sertraline (Zoloft) 50 mg tablet daily Vapes nicotine containing substance 05/27/2023 Encounter for wellness examination 05/27/2023 Immunization due 05/27/2023 Assessment & Plan (05/27/2023 4:36 PM CDT): Pneumonia and Covid vaccines completed today Routine screening for STI (sexually transmitted infection) 05/27/2023 Assessment & Plan (05/27/2023 4:37 PM CDT): Jazmin to return to clinic next week for STI testing Encounters Date Type Department Care Team Description 09/13/2024 2:40 PM CDT Office Visit [place] [address] [facility] [address] [place] [address] Hansel Holden MD Moderate episode of recurrent major depressive disorder (HCC) (Primary Dx); Cannabis hyperemesis syndrome concurrent with and due to cannabis dependence (HCC) from Last 3 Months Immunizations Immunization Administration Dates Next Due COVID-19, mRNA, LNP-s, PF, issa-succrose, 30mcg/0.3mL, COMIRNATY Ages 12+ 05/27/2023 DTaP 05/08/2008, 8,06/22/2004,03/26,2003 DTaP / Hep B / IPV 06/22/2004,03/26/2004 HPV 9-Valent 09/05/2019,10/04/2017 Hep A, 2 Dose 05/08/2008,09/05/2007 Hep A, Unspecified 05/08/2008,09/05/2007 Hep B / HiB 2003 Hep B, Adolescent or Pediatric 06/22/2004,2004,2003 Hepatitis B 06/22/2004,03/26/2004 HiB 06/22/2004,03/26/2004,2003 Hib (PRP-T) 06/22/2004,03/26/2004 IPV 05/08/2008, 5,03/26/2004,12/26 Influenza 6mo-64yrs Quad Pre servative Free IM 11/12/2022,11/12/2022,03/26/2019 Influenza, Split Virus, Triv alent, Preservative 11/03/2011 Influenza, Trivalent, PF 11/03/2011 MMR 05/08/2008,09/05/2007 Meningococcal Conjugate 08/28/2021,10/01/2015 Meningococcal MCV4, Unspecified 08/28/2021,09/30 PPD Test 09/20/2017 Pneumococcal Conjugate 09/05/2007,06/22/2004,06/2003 Pneumococcal Conjugate PCV20 05/27/2023 Tdap 10/01/2015 Varicella 05/08/2008,09/05/2007 Family History Relation Status Comments Brother 1 Alive Brother 2 Alive Father Alive Mother Alive Social History Tobacco Use Types Packs/Day Years [...] often do you attend chur ch or zoroastrian services? More than 4 times per year 07/06/2023 Do you belong to any clubs o r organizations such as scientology groups, unions, fraternal or athletic groups, or [...] Date Recorded PHQ-9 Total Score 18 07/06/2023 [facility] - Occupational Stress Questionnaire Answer Date Recorded [...] any time in the past 12 [facility], were you homeless or living in a senior care (including now)? No 07/06/2023 Comments Unknown Sex [...] F) 09/13/2024 2:16 PM CDT Respiratory Rate 16 07/06/2023 9:22 AM CDT Oxygen Saturation 98% 09/13/2024 2:16 PM CDT Inhaled Oxygen Concentration - - Weight 77.6 kg (171 lb) 07/06/2023 9:22 AM CDT Height 165.1 cm (5' 5) 09/13/2024 2:16 PM CDT Body Mass Index 28.15 07/06/2023 9:22 AM CDT Plan of Treatment Health Maintenance Due Date Last Done Comments COVID-19 Vaccine (2 - 2023-2 5 season) 2023 05/27/2023 Chlamydia Screening 07/22/2024 07/23/2023, 0 Influenza Vaccine (#1) 2024 3, 11/12/2022, 03/26/2019, Additional history exists DTaP,Tdap,and Td Vaccines (7 - Td or Tdap) 09/30/2025 10/01/2015, 05/08/2008, 09/05/2007, Additional history exists HPV Vaccines Completed 09/05/2019, 10/04/2017 Pneumococcal Vaccine: Pediat rics (0 to 5 Years) and At-Risk Patients (6 to 49 Years) Completed 05/27/2023, 09/05/2007, 06/22/2004, Additional history exists Asthma: Control Test Discontinued Insurance [facility] [employer] Care Teams Senior Compensation Analyst Relationship Specialty Start Date End Date Elsewhere, Pcp [address] [facility] [place] [address] PCP - General Rate Reviewer 06/20/24
--- OUTSIDE RECORDS SUMMARY | 2024-09-13 21:43 | XMS_ITS | Encounter Summary ---
Author Organization [facility] Address [address] [address] Care Team Providers Care Grain Oilseed Or Pasture Grower Name Role Phone Belle Diaz PA-C Primary Care Provider + [phone] Encounter Details Date Type Department Care Team ([facility] st Contact Info) Description 09/13/2024 Results Follow-Up [facility] Obstetrics and Gynecology [address] [place] [address] Yasmine Caputo RN [address], [place] [id number] Social History Tobacco Use Types Packs/Day Years [...] documented as of this encounter Visit Diagnoses Not on filedocumented in this encounter Care Teams Grain Oilseed Or Pasture Grower Relationship Specialty Start Date End Date Belle Diaz PA-C [address] [place] [address] PCP - General Physician Cartographic Aide 08/15/21 documented as of this encounter
--- OUTSIDE RECORDS SUMMARY | 2024-09-13 21:43 | XMS_ITS | Clinical Summary ---
Author Organization [employer] Address [address] [place] [address] Care Team Providers Care Health Record Technician Name Role Phone Belle Diaz PA-C Primary Care Provider + [phone] Source Comments You are receiving this document as you are listed as the primary care provider,follow-up provider, or the patient has been referred to you for consultation.This is in compliance with the Medicare and[facility] E[facility] Incentive Program,which states Providers who transition their patient to another setting of careor provider of care or refers their patient to another provider of care shouldprovide summary care record for each transition of care or referral. [employer] Allergies Active Allergy Reactions Criticality Noted Date Comments Other Rash 08/27/2024 Developed a rash on 3rd day of taking Celexa, Abilify and Lamictal. Unsure which caused the allergy. Medications * This document contains information received from the source organization and may not represent a complete record from that organization. ALBUterol sulfate HFA 108 (90 Base) MCG/ACT inhalerIndicati ons:Asthma, exercise induced (HRC) Inhale 2 Puffs every 4 hours as needed for Wheezing or Shortness of Breath. 2 Each 4 2 Active lamoTRIgine (LAMICTAL) 25 MG tablet Weeks 1-2: 1 x 25 mg tab po q/day. Weeks 3-4: 2 x 25 mg (50 mg) tab po q/day. Weeks 5: 4 x 25 mg (100 mg) tab po qday. 70 Tablet 5 Active Additional Information Patient not taking.Reported on 08/27/2024 citalopram (CELEXA) 10 MG tablet Take 1 Tablet (10 mg) by mouth daily. 90 Tablet 3 5 07/13/19 26 Active Additional Information Patient not taking.Reported on 08/27/2024 ARIPiprazole (ABILIFY) 2 MG tablet Take 1 Tablet (2 mg) by mouth daily. 30 Tablet 5 Active Additional Information Patient not taking.Reported on 08/27/2024 ibuprofen (MOTRIN) 600 MG tablet Take 1 Tablet (600 mg) by mouth three times a day. 5 Active levonorgestrel- ethinyl estrad (ALESSE) 0.1-20 MG-MCG tablet Take 1 Tablet by mouth daily. 84 Tablet 3 5 09/07/19 26 Active Active Problems Problem Noted Date Diagnosed Date Intermittent asthma 04/13/2024 Anorexia nervosa, restricting type 01/12/2023 History of non-suicidal self-harm 11/24/2022 Marijuana use 10/27/2022 Recurrent abdominal pain 10/27/2022 Bradycardia 10/04/2022 GERD (gastroesophageal reflux disease) Other specified eating disorder 04/19/2022 Overview (04/19/2022): Atypcial Anorexia Nervosa Abnormal weight loss 04/19/2022 PTSD (post-traumatic stress disorder) 04/19/2022 Nonsuicidal self-harm 04/19/2022 History of suicide attempt 04/19/2022 Suicidal ideation 04/19/2022 Suicide attempt by acetaminophen overdose 2019 Asthma, exercise induced 10/04/2017 Generalized anxiety disorder 10/04/2017 MDD (major depressive disord er), recurrent episode, moderate 10/04/2017 Resolved Problems Problem Noted Date Diagnosed Date Resolved Date Hypokalemia 11/24/2022 11/25/2022 Mood disorder 08/13/2022 09/13/2022 Current mild episode of chelsey r depressive disorder 05/24/2022 09/13/2022 Moderate episode of recurren t major depressive disorder 10/04/2017 10/04/2017 Plantar wart 09/27/2013 10/01/2015 Anal itching 02/26/2012 10/01/2015 Assessment & Plan (02/28/2012 7:08 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 She has been living with her grand niece and started living with her aunt for one year. She was living in [place]. She notices that she itches all day, but it bother her more at night. It itches more in the back. Poop has been normal. Her twin sister has also complained of similar symptoms. She is currently living with an aunt. Apparently her living circumstances with her father and mother have been rough. Routine child health exam 11/03/2011 Encounters * This document contains information received from the source organization and may not represent a complete record from that organization. 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 Ultrasound [address] [place] [address] Anjelica Davidson APRN, CNM Menorrhagia with regular cycle 09/13/2024 Results Follow-Up [facility] Obstetrics and Gynecology [address] [place] [address] Yasmine Caputo RN 09/06/2024 1:00 PM CDT Telemedicine [facility] [address] [place] [address] Anjelica Davidson, NURSING SURGICAL SERVICES DIRECTOR, CNM Menorrhagia with regular cycle (Primary Dx) 08/27/2024 12:05 PM CDT Ancillary Procedure [facility] [address] [address] [address] [place] [address] Zee Lam MD Constipation, unspecified constipation type 08/27/2024 12:00 PM CDT Office Visit [facility] [address] [place] [address] Zee Lam MD Constipation, unspecified constipation type from Last 3 Months Immunizations Immunization Administration Dates Next Due 9vHPV (Gardasil 9) 09/05/2019,10/04/2017 DTaP 05/08/2008, 8,06/22/2004,2004,2003 Flu Vac Preserv Free (3+yrs) 11/03/2011 HepA Ped/Adol (1-18 yrs) 05/08/2008,09/05/2007 HepB Ped/Adol (0-18 yrs) 06/22/2004,03/26/2004,1 2003 Hib, Unspecified Formulation 06/22/2004,03/26/19 05,2003 IPV (Polio) 05/08/2008, 5,03/26/2004,2003 Influenza IIV4 (Quadrivalent ) 0.5mL (73243) 11/12/2022 MCV4 Menveo 2m.+ (two vial) 08/28/2021, 6 MMR 05/08/2008,09/05/2007 Pneumococcal 7, PED 09/05/2007,06/22/2004,2003 TB Skin Test (PPD) 09/20/2017 TDAP (BOOSTRIX) 10/01/2015 Varicella 05/08/2008,09/05/2007 Family History Medical History Relation Name Comments Alcohol Abuse Father Bipolar Disorder Father Drug Abuse Father Alcohol Abuse Mother Alcohol/Drug Abuse Mother Bipolar Disorder Mother Borderline personality Mother Drug Abuse Mother Seizure Disorder Mother No Known Problems Sister Amblyopia/Strabismus Negative Family History Relation Name Status Comments Father Alive Mother Alive Sister Alive Social History Tobacco Use Types Packs/Day [...] Orientation Bisexual 11/08/2022 5: 42 PM CDT Last Filed Vital Signs Vital Sign Reading Time Taken Comments Blood Pressure 131/57 09/13/2024 4:13 PM CDT Pulse 66 09/13/2024 4:13 PM CDT Temperature 36.8 C (98.2 F) 09/13/2024 4:13 PM CDT Respiratory Rate 20 09/13/2024 4:13 PM CDT Oxygen Saturation 99% 09/13/2024 4:1 3 PM CDT Inhaled Oxygen Concentration - - Weight 67.5 kg (148 lb 13 oz) 12/13/2022 1:02 PM CDT pt clothed-leggings, hoodie Height 165.8 cm (5' 5.28) 11/25/2022 6 :00 AM CDT Body Mass Index 24.55 11/25/2022 6:00 AM CDT Plan of Treatment Health Maintenance Due Date Last Done Comments Hep C Screening (Preventive Services) 2003 MenB Immunization Discussion 2003 Asthma ACT (score of 20 or higher) 02/15/2019 02/15/2018, 10/04/2017, 10/05/2016, Additional history exists HIV Screening (Preventive Services) 2019 Adult Preventive Visit 10/13/2021 , 09/05/2019, 10/04/2017, Additional history exists COVID-19 Vaccine ( - season) 2023 05/27/2023 Chlamydia 07/22/2024 07/23/2023, 09/2021, 03/29/2019 Influenza Vaccine (#1) 2024 11/12/2022, 2011 DTaP/Tdap/Td Vaccine (7 - Tdap) 09/30/2025 10/01/2015, 05/08/2008, 09/05/2007, Additional history exists Zoster/Shingles Vaccine (1 of 2) 10/13/2053 HepB Vaccine Completed 06/22/2004, 04/2004, 2003 Hib Vaccine Aged Out 06/22/2004, 04/2004, 2003 No longer eligible based on patient's age to complete this topic HepA Vaccine Completed 05/08/2008, 09/05/2007 IPV (Polio) Vaccine Completed 05/08/2008, 06/22/2004, 03/26/2004, Additional history exists Varicella Vaccine Completed 05/08/2008, 09/05/2007 HPV Vaccine Completed 09/05/2019, 10/04/2017 MCV4 Vaccine Completed 08/28/2021, 10/01/2015 Pneumococcal Vaccine Completed 05/27/2023, 09/05/2007, 06/22/2004, Additional history exists Procedures Procedure Name Priority Date/Time Associated Diagnosis Comments BASIC METABOLIC PANEL STAT 09/13/2024 4:20 PM CDT COMPLETE BLOOD COUNT-NO DIFF STAT 09/13/2024 4:20 PM CDT OBGYN PELVIC/LPN RN HOSPICE ULTRASOUND Routine 09/13/2024 11:13 AM CDT Menorrhagia with regular cycle XR ABD FLAT AND UPRIGHT STAT 08/27/2024 12:13 PM CDT Constipation, unspecified constipation type CHLAMYDIA & GC, URINE (14 YEARS AND OLDER) Routine 08/28/2021 5:42 PM CDT Routine screening for STI (sexually transmitted infection) from Last 3 Months or Most Recently Relevant to Health Maintenance Results * (ABNORMAL) Basic Metabolic Panel (09/13/2024 4:20 PM CDT) Sodium 140 136 - 145 mmol/L 09/13/2024 4:54 PM CDT [facility] Potassium 3.8 3.5 - 5.1 mmol/L 09/13/2024 4:54 PM CDT [facility] Comment:Specimen slightly he molyzed. Hemolysis may affect result. Chloride 110(H) 98 - 109 mmol/L 09/13/2024 4:54 PM CDT [facility] CO2 12(L) 20 - 29 mmol/L 09/13/2024 4:54 PM [facility] Anion Gap 18(H) 6 - 16 mmol/L 09/13/2024 4:54 PM [facility] Calcium 10.0 8.4 - 10.4 mg/dL 09/13/2024 4:54 PM [facility] BUN 10 7 - 26 mg/dL 09/13/2024 4:54 PM [facility] Creatinine 0.79 0.55 - 1.02 mg/dL 09/13/2024 4:54 PM [facility] Glucose 96 70 - 100 mg/dL 09/13/2024 4:54 PM [facility] Comment:The given reference range is for the fasting state. Non-fasting reference range for glucose is 70 - 180 mg/dL. GFR, Estimated >60 >60 mL/min/1.7 3m2 09/13/2024 4:54 PM [facility] Blood Venipuncture / Unknown 09/13/2024 4:20 PM CDT 09/13/2024 4:25 PM T us Peña Diaz MD LAB_1 [place] [address], [facility] * (ABNORMAL) Complete Blood Count-No Diff (09/13/2024 4:20 PM CDT) WBC 15.3(H) 3.5 - 10.5 x10(9)/L 09/13/2024 4:28 PM [facility] RBC 4.38 3.90 - 5.03 x10(12)/L 09/13/2024 4:28 PM [facility] Hemoglobin 13.1 12.0 - 15.5 g/dL 09/13/2024 4:28 PM [facility] HCT 37.2 34.9 - 44.5 % 09/13/2024 4:28 PM [facility] MCV 84.9 80.0 - 100.0 fL 09/13/2024 4:28 PM [facility] MCH 29.9 27.6 - 33.3 pg 09/13/2024 4:28 PM [facility] MCHC 35.2 31.5 - 35.2 g/dL 09/13/2024 4:28 PM CDT [facility] RDW 12.8 11.9 - 15.5 % 09/13/2024 4:28 PM [facility] Platelets 311 150 - 450 x10(9)/L 09/13/2024 4:28 PM CDT [facility] Automated NRBC 0 <=0 /100 WBC 09/13/2024 4:28 PM CDT [facility] Blood Venipuncture / Unknown 09/13/2024 4:20 PM CDT 09/13/2024 4:25 PM CDT us Peña Diaz MD LAB_1 Final R esult [id number] [place] [address] * OBGYN Pelvic/Fare Register Repairer Ultrasound (09/13/2024 11:13 AM CDT) Uterus AP Diameter (Height) 3.00 cm EXTERNAL RESULTS Uterus Longitudinal Diameter (Length) 6.90 cm EXTERNAL RESULTS Uterus Transverse Diameter (Width) 3.50 cm EXTERNAL RESULTS Uterus Volume 37.93 ml CENTRIFUGE OPERATOR AL RESULTS Endometrium Thickness 5.20 mm EXTERNAL [...] from the original result was not included. LPN RN HOSPICE Ultrasound Exam performed on: 09/13/2024 Referring provider: Anjelica Davidson APRN, CNM Referring clinic: [facility] Clinical indications: Menorrhagia with regular cycle LMP: 08-31-2024 [employer](s) initials: KI The pelvic organs are imaged [...] APRN, CNM RAD US Final Res ult * XR Abd Flat And Upright (08/27/2024 [...] Zee Lam MD RAD GD Final Result * Chlamydia & GC, Urine (14 Years and Older) (08/28/2021 5:42 PM CDT) Chlamydia Trachomatis STD Not Detected Not Detected 08/29/2021 3:28 PM CDT [facility] N. gonorrhoeae STD Not Detected Not Detected 08/29/2021 3:28 PM CDT [facility] Urine STD (Urine for STD) Non-blood Collection / Unknown 08/28/2021 5:42 PM CDT 08/28/2021 5:42 PM CDT Narrative [facility] - 08/29/2021 3:28 PM CDT Test performed by Timber Cutter Mediated Amplification (TMA). us Belle Diaz PA-C LAB_[address] [facility] [address] [phone] from Last 3 Months or Most Recently Relevant to Health Maintenance Insurance [facility] BCBS PMAP [facility] Advance Directives * Full Code (Latest Code Status on File) Date Activated Date Inactivated Comments 11/24/2022 3:25 PM 12/08/2022 12:22 PM * Full Code Date Activated Date Inactivated Comments 04/19/2022 2:48 PM 04/27/2022 3:18 PM Care Teams Health Record Technician Relationship Specialty Start Date End Date Belle Diaz PA-C [id number] [phone] PCP - General Physician Medical Assistant Secretary 08/15/21
--- OUTSIDE RECORDS SUMMARY | 2024-09-13 21:44 | XMS_ITS | Encounter Summary ---
Author Organization [facility] Address [facility] [place] [address] Care Team Providers Care Apron Trimmer Name Role Phone Reynaldo Moya MD Unavailable + Ilya Muñoz PA-C Unavailable No Ref-Primary, Physician Primary Care Provider Encounter Details Date Type Department Care Team (Latest Contact Info) Description 09/11/2024 Travel Social History Tobacco Use Types Packs/Day Years [...] Answer Date Recorded Do you have housing? 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 Gender Identity Not on file Sexual Orientation Not on file documented as of this encounter Plan of Treatment Not on file documented as of this encounter Visit Diagnoses Not on filedocumented in this encounter Additional Health Concerns Assessment Noted Time PHQ-9 Depression Total Score: 22 024 6:58 AM CDT documented as of this encounter Care Teams Apron Trimmer Relationship Specialty Start Date End Date Reynaldo Moya MD [facility] [address] [place] [address] PCP - Mental Health/Behavioral Medicine Psychiatry 03/28/19 No Ref-Primary, Physician PCP - General 09/11/24 Ilya Muñoz PA-C [address] [place] [address] KIRK DIALLO [address] Assigned PCP 08/14/23 documented as of this encounter
[2024-09-13 21:47] VITALS: BP 161/89; PULSE 62; RESP 22; TEMP 36.1; O2SAT 97
--- NOTE | 2024-09-13 21:55 | ED_ITS ---
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 She states that the last use of marijuana was about a week ago. Since then she has been vomiting. She did go to a different facility for treatment of these symptoms. She returns here tonight with recurrent symptoms. She states that she has Zofran at home but this does not help. Related Data Home Medications ?Medication ?Instructions ?Recorded ?Confirmed No Known Home Medications 09/13/2408/22 Allergies Allergy/AdvReac Type Severity Reaction Status Date / Time No Known Drug Allergies Allergy Verified 10/31/22 17:21 Review of Systems Status of ROS: Reports: 10 or more systems reviewed and unremarkable except as noted in History and below Narrative: Constitutional: No fevers, no weight gain or loss. Eyes: No discharge. No vision changes. HENT: No congestion, no sore throat, no ear pain. Cardiovascular: No chest pain, no palpitations. Respiratory: No shortness of breath, no wheezes, no cough. Gastrointestinal: Persistent nausea and vomiting. Genitourinary: No dysuria, no hematuria. Musculoskeletal: Normal range of motion. Skin: No rashes, no pruritis. Neurological: No dizziness, weakness, sensory change, speech change. Endo/Heme/Allergies: No bruising or bleeding. No polydipsia. All other systems reviewed and are negative. [facility] Medical History (Updated 09/13/24 @ 23:07 by Bebo Castillo MD) Constipation ?K59.00 - Constipation, unspecified (ICD-10) Cannabis hyperemesis syndrome concurrent with and due to cannabis abuse ?F12.188 - Cannabis abuse with other cannabis-induced disorder (ICD-10) Hypokalemia ?E87.6 - Hypokalemia (ICD-10) Social History Narrative: Lives with her dad and stepmom in [place]. 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 What is your current living situation?: I presently have a place to live Problems where you live: no known problems Problems where you live details: NA In the past 12 months, utilities in danger of being shut off: no In past 12 months, lack of transportation kept you from medical appts, meetings, work, or getting things needed for daily living: no In the past 12 mos, have been you worried that your food would run out before you had money to buy more?: never true In the past 12 mos, the food you bought just didn't last and you didn't have money to buy more?: never true Highest level of school completed/degree received: 12th grade, no diploma Smoking Status: Never smoker Do you use any of these nicotine containing products: Vaping Products Second hand tobacco smoke exposure: No How often do you have a drink containing alcohol: monthly or less AUDIT-C Alcohol total score: 1 Non-prescribed substance use: marijuana (any form) Caffeine: No How often does anyone, including family, friends and others, physically hurt you : never How often does anyone, including family, friends and others, insult or talk down to you: never How often does anyone, including family, friends and others, threaten you with harm: never How often does anyone, including family, friends and others, scream or curse at you: never service: No Exam Narrative: Exam Narrative: Constitutional: Well-developed, well-nourished, no acute distress. HEENT: Normocephalic, atraumatic. Neck: Normal range of motion. Nontender. Supple. Heart: Regular. No murmurs. Normal rate. Intact distal pulses. Lungs: Clear to auscultation. No chest discomfort. No wheezes, rhonchi, or rales. Abdomen: Normal bowel sounds. Persistent loud vomiting and diffuse abdominal pain related to vomiting. Genitalia: Deferred. Back: No midline tenderness. Normal range of motion. Extremities: Normal range of motion. No injury. Skin: Intact. No rash. Warm. No erythema or pallor. Neurologic: No altered sensation. No weakness. Alert and oriented. Psychiatric: No suicidality. No anxiety or depression. No insomnia. Nursing notes and vitals signs are reviewed. Const: Vital Signs, click to edit/add: Vital Signs - 24 hr 09/13/24 21:47 09/13/24 22:36 Temperature 97 F L Pulse Rate [Pulse Oximeter] 62 63 Respiratory Rate 22 18 Blood Pressure [Ri ght Upper Arm] 161/89 H Pulse Oximetry 97 98 Oxygen Delivery Me thod Room Air Room Air Course Vital Signs Vital signs: Initial Vital Signs Temperature 97 F L 09/13/24 21:47 Temperature Source Temporal Artery Scan 09/13/24 21:47 Pulse Rate 62 09/13/24 21:47 Respiratory Rate 22 09/13/24 21:47 Blood Pressure 161/89 H 09/13/24 21:47 Blood Pressure Mean 113 H 09/13/24 21:47 Blood Pressure Position Semi-Fowlers 09/13/24 21:47 Pulse Oximetry 97 09/13/24 21:47 Oxygen Delivery Method Room Air 09/13/24 21:47 Vital Signs Temperature 97 F L 09/13/24 21:47 Pulse Rate 62 09/13/24 21:47 Respiratory Rate 22 09/13/24 21:47 Blood Pressure 161/89 H 09/13/24 21:47 Pulse Oximetry 97 09/13/24 21:47 Oxygen Delivery Method Room Air 09/13/24 21:47 Temperature 97 F L 09/13/24 21:47 Pulse Rate 63 09/13/24 22:36 Respiratory Rate 18 09/13/24 22:36 Blood Pressure 161/89 H 09/13/24 21:47 Pulse Oximetry 98 09/13/24 22:36 Oxygen Delivery Method Room Air 09/13/24 22:36 Medications Administered Medications: Discontinued Medications Generic Name Dose Route Start Last Admin Trade Name Freq PRN Reason Stop Dose Admin Haloperidol Lactate 5 mg 09/13/24 21:54 09/13/24 22:11 Haloperidol 5 Mg/Ml Inj IV 09/13/24 21:55 Not Given ONCE ONE Dextrose/Sodium Chloride 1,000 mls @ 1,000 mls/hr 09/13/24 21:54 09/13/24 23:01 5 % Dextrose/0.45% Sod Chlor IV 09/13/24 22:53 Infused .Q1H ONE Infusion Olanzapine 5 mg 09/13/24 21:56 09/13/24 22:04 Olanzapine 5 Mg/Ml Inj IVP 09/13/24 21:57 5 mg ONCE ONE Administration MDM - Nausea/Vomiting/Diarrhea MDM Narrative Medical decision making narrative: This patient comes in with typical symptoms of cyclical vomiting syndrome. She was rather dramatic with dry heaves. An IV was established where she received 5 mg of Zyprexa and a L of D5 half-normal saline. This brought great relief to her symptoms. She is okay to be Discharge Plan Discharge Clinical Impression: Cyclic vomiting syndrome Patient Disposition: Home w/ Parent or Adult Condition: Improved Additional Instructions: Avoid all use of marijuana products. Increase diet as tolerated. Follow up with MD return if worsening. Prescriptions: No Action No Known Home Medications Follow Up/Referrals: Provider,Not a Local [Primary Care Provider, Family Practice] Stand Alone Forms: [employer] Info Instructions
[2024-09-13] MEDS: OLANZapine 5 MG/ML inj IVP (22:04)
[2024-09-13] MEDS: 5 % DEXTROSE/0.45% SOD CHLOR 1,000 ML 1000 ML IV (22:10)
[2024-09-13 22:36] VITALS: PULSE 63; RESP 18; O2SAT 98
--- OUTSIDE RECORDS SUMMARY | 2024-09-13 23:07 | XMS_ITS | Patient Health Record ---
Author Organization [facility] e Address [address] [place] [address] Care Team Providers Care Psychiatric Specialist Name Role Phone None, No PCP Primary Care Provider UnavailBo Valentine Unavailable [phone] HugoDarrinTeresita Unavailable [phone] Leticia Rider Unavailable [phone] Allergies No Known Allergies Results Component Value [...] 11/30/2023 Encounters Encounter Location Date Provider Diagnosis [address] [place] [id number] 12/02/2023 Leticia Rider [address] [phone] 12/02/2023 Leticia Rider Pre-operative laboratory examination Z01.812 and Encounter for IUD removal Z30.432 [facility] [address] [place] [address] 11/30/2023 Teresita Farb Procedure and treatment not carried out for other reasons Z53.8 and Presence of (intrauterine) contraceptive device Z97.5 [facility] [address] [place] [address] [address] [place], [place] [phone] 12/02/2023 Leticia Rider [address] [place] [address] 12/01/2023 Kielenrique Edvinjulianrose [address] [place] [address] 11/30/2023 Teresita Farb Retained intrauterin e contraceptive device (IUD) T83.39XA Assessments Encounter Date Diagnosis (ICD Code) Assessment Notes Treatment Notes Treatment Clinical Notes Section Notes 11/30/2023 Retained intrauterine contraceptive device (IUD) (ICD-10 - T83.39XA) 12/02/2023 Encounter for IUD removal (ICD-10 - Z30.432) -IUD was able to be removed in its entirety without hysteroscopy. -Minimal bleeding noted, pt tolerated procedure well. 12/02/2023 Pre-operative laboratory examination (ICD-10 - Z01.812) 11/30/2023 Procedure and treatment not carried out for other reasons (ICD-10 - Z53.8) 11/30/2023 Presence of (intrauterine) contraceptive device (ICD-10 - Z97.5) 11/30/2023 Other Call placed to on-call MD with description of above. MD recommended hysteroscopy D&C and potential intraop ultrasound if needed. Discussed with pt who agreed with plan. Will send note to radiology scheduler. Warm packs provided to pt for comfort. Advised nothing in vagina including tampon for current menses. Pt denied dizziness or nausea and was able to leave clinic without issue. 11/30/2023 Other Surgeon: Leticia Rider Diagnosis: retained IUD ICD-10: T83.39XA Procedure:Hyster oscopy possible D&C, IUD removal CPT: 29978, 20825 Special Equipment: Surgeon Notes: Location: [facility] [place] Hospitalization: outpatient Anesthesia: [facility] Allergies: Health [...] [place] Bill) [address] [address] [place] [address] [id number] Jazmin Carroll Self - patient is the insured [place] [employer] Medicaid (Ins. Bill) [address] [address] [place], [place] [id number] Jazmin Carroll Self - patient is the insured Medical (General) History Medical History History ICD Code depression asthma Surgical History Surgery Date(Month/Year) IUD removal under sedation 12/02/2023
== END 2024-09-13 23:22 | disposition home or self-care (01) ==
PROVIDERS: Emergency Provider Emergency Medicine Emergency Medical Services
DX: R11.15 Cyclical vomiting syndrome unrelated to migraine (principal); F12.99 Cannabis use, unspecified with unspecified cannabis-induced disorder
CPT/HCPCS: 99283; 99284; S5010

== ENCOUNTER 2024-09-16 08:56 | Emergency (ER) | payer BC, SELFPAY ==
--- OUTSIDE RECORDS SUMMARY | 2023-12-02 10:00 | XMS_ITS ---
Author Organization [employer] [place] [employer] Address [address] [place] [address] Care Team Providers Care Preschool Program Director Name Role Phone None, No PCP Primary Care Provider Bo Goldstein Unavailable [phone] Leticia Rider Unavailable [phone] Encounters Encounter Location Date Provider Diagnosis [address] [id number] 12/02/2023 Leticia Rider Plan Of Treatment No Information Progress Notes * Jazmin JEANDOB:2005 (18 yo F)Acc No.[id number]:12/02/2023 Patient: Jazmin GUERRIER Provider: Pancho Rider DO :2005 A ge:18 Y S ex:Female Date:12/02/2023 Address:[address] [place] [address] [facility] Pcp:No PCP None Subjective: * Chief Complaints: * * Medical History: Objective: * Vitals: Assessment: Plan: * Treatment: * Images: Billing Information: * Visit Code: * Procedure Codes: * Electronic signature of Deborah Rider DO on 09/16/2024 at 08:58 AM CDT Sign off status: Pending * Provider: Pancho Rider DO Date: 1 Generated for Printi ng/Faxing/eTransmitting on: 0 09/16/2024 08:58 AM CDT
--- OUTSIDE RECORDS SUMMARY | 2023-12-02 10:00 | XMS_ITS ---
Author Organization [place] [employer] Address [address] [place] [address] Care Team Providers Care Support Representative Name Role Phone None, No PCP Primary Care Provider Bo Goldstein Unavailable [phone] Leticia Rider Unavailable [phone] Encounters Encounter Location Date Provider Diagnosis [address] [id number] 12/02/2023 Leticia Rider Plan Of Treatment No Information Progress Notes * Jazmin JEANDOB:2005 (18 yo F)Acc No.[id number]:12/02/2023 Patient: Jazmin GUERRIER Provider: Pancho Rider DO :2005 A ge:18 Y S ex:Female Date:12/02/2023 Address:[address] [place] [address] [facility] Pcp:No PCP None Subjective: * Chief Complaints: [...]
--- OUTSIDE RECORDS SUMMARY | 2023-12-16 11:15 | XMS_ITS ---
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 Progress Notes * Jazmin JEANDOB:2005 (18 yo F)Acc No.[id number]:12/16/2023 Progress Note Patient: Lars STEPHENSONJazmin Provider: Pacnho Rider DO :2005 A ge:18 Y S ex:Female Date:12/16/2023 Address:[address] [place] [address] JOSELIN Galindo, [facility] Pcp:No PCP None Subjective: * Chief Complaints: * 1 . Post op IUD removal under sedation. 2. 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 * Medical History: D epression, Asthma. * Behavioral Modification Assistant History: D ate of Last Period: i rregular bleeding with IUD. B irth Control: N one, . S exual Activity C urrently sexually active, male partner. S exually Tranmitted Disease (STD) N one. D enies H/O Abnormal Pap Smear. D enies H/O Colposcopy. * OB History: P regnancy # 1: 0 02/2023 SAB. * Surgical History: I UD removal under sedation 12/02/2023. * Hospitalization/Major Diagno stic Procedure: D enies Past Hospitalization. * Family History: N o Family History documented.. * Social History: T obacco Use: T obacco Control (Standard) T obacco use: N onsmoker D rugs/Alcohol: C affeine I ntake: 1 -2 cups per day Do you smoke marijuana?: Denies. Do you drink alcohol?: No. M iscellaneous: E xercise: no. * Medications: T aking Albuterol , Taking Ashwagandha , Medication List reviewed and reconciled with the patient * Allergies: N .K.D.A. Objective: * Vitals: Assessment: * Assessment: 1. E mbedded foreign body - Z18.9 (Primary) Plan: * Treatment: * Images: Billing Information: * Visit Code: * Procedure Codes: * Electronic signature of Deborah Rider DO on 09/16/2024 at 08:58 AM CDT Sign off status: Pending * Provider: Pancho Rider DO Date: Generated for Cara huizar/Codie/eTvivianeitting on: 0 09/16/2024 08:58 AM CDT
--- OUTSIDE RECORDS SUMMARY | 2024-08-27 12:00 | XMS_ITS | Encounter Summary ---
Author Organization [employer] Address [address] [place] [address] Care Team Providers Care Crm Administrator Name Role Phone Belle Diaz PA-C Primary Care Provider [phone] Reason for Referral * Procedure/Equipment (Routine) - Incomplete Specialty Diagnoses / Procedures Referred By Contac t Referred To Contact Diagnoses Constipation, unspecified constipation type Procedures XR Abd Flat And Upright Zee Lam MD [address] [place] [address] Phone: tel: fax: Referral ID Status Reason Start Date Expiration Date V isits Requested Visits Authorized [id number] Incomplete 08/27/2024 11/26/2025 1 1 Reason for Visit * Reason Comments Constipation Encounter Details Date Type Department Care Team (Late st Contact Info) Description 08/27/2024 12:00 PM CDT Office Visit [facility] [address] [place] [address] Zee Lam MD [address] [place], [place] [phone] Constipation, unspecified constipation type Social History Tobacco [...] this encounter Patient Instructions * Patient Instructions* eZe Lam MD - 08/27/2024 12:00 PM CDT [...] Subjective Nursing Notes: You Kerr, RN 08/27/24 6155 Signed Pt states she has had trouble [...] type documented in this encounter Care Teams Crm Administrator Relationship Specialty Start Date End Date Belle Diaz, MALIKAC [address] [place] [address] PCP - General Physician Sleep Lab Technologist 08/15/21 documented as of this encounter
--- OUTSIDE RECORDS SUMMARY | 2024-08-27 12:05 | XMS_ITS | Encounter Summary ---
Author Organization [employer] Address [address] [address] Care Team Providers Care Horse Stud Worker Name Role Phone Belle Diaz PA-C Primary Care Provider [phone] Reason for Visit * Procedure/Equipment (Routine) - Incomplete Specialty Diagnoses / Procedures Referred By Contac t Referred To Contact Diagnoses Constipation, unspecified constipation type Procedures XR Abd Flat And Upright Zee Lam MD [address] [place] [address] Phone: tel: fax: Referral ID Status Reason Start Date Expiration Date V isits Requested Visits Authorized [id number] Incomplete 08/27/2024 11/26/2025 1 1 Encounter Details Date Type Department Care Team (Latest Contact Info) Description 08/27/2024 12:05 PM CDT Ancillary Procedure [facility] [address] Radiology [address] [place] [address] Zee Lam MD [address] [place] [address] Constipation, unspecified constipation type Social [...] type documented in this encounter Care Teams Horse Stud Worker Relationship Specialty Start Date End Date Belle Diaz PA-C [address] [place] [address] PCP - General Physician Metal Loader 08/15/21 documented as of this encounter
--- OUTSIDE RECORDS SUMMARY | 2024-09-06 13:00 | XMS_ITS | Encounter Summary ---
Author Organization [employer] Address [address] [address] Care Team Providers Care Biophysics Professor Name Role Phone Belle Diaz PA-C Primary Care Provider [phone] Reason for Referral * Procedure/Equipment (Routine) - Incomplete Specialty Diagnoses / Procedures Referred By Contac t Referred To Contact Diagnoses Menorrhagia with regular cycle Procedures OBGYN Pelvic/Aquatics Manager Ultrasound Anjelica Davidson APRN, CNM [address] [place] [address] Phone: tel: fax: Referral ID Status Reason Start Date Expiration Date V isits Requested Visits Authorized [id number] Incomplete 09/06/2024 12/06/2025 1 1 Reason for Visit * Reason Comments Video Visit DYSMENORRHEA Encounter Details Date Type Department Care Team (Late st Contact Info) Description 09/06/2024 1:00 PM CDT Telemedicine [facility] [place] [phone] Anjelica Davidson APRN, CNM [address] [place], [place] [phone] Menorrhagia with regular cycle (Primary Dx) Social History Tobacco Use Types Packs/Day Years [...] PM CDT documented as of this encounter Patient Instructions * Patient Instructions* Anjelica Davidson, MORA, CN - 09/06/2024 1:00 PM CDT Images from the original note were not included. Combination Control Pills: Care Instructions Overview Combination control pills are used to prevent . They give you a regular dose of the hormones estrogen and progestin. You take a pill every day to prevent . control pills come in packs. The most common type has 3 weeks of hormone pills. Some packs have sugar pills (they do not contain any hormones) for the fourth week. During that fourth no-hormoneweek, you have your period. After the fourth week (28 days), you start a new pack. Some control pills are packaged in different ways. For example, some have hormone pills for the fourth week instead of sugar pills. This is called continuous use. Taking hormones for the entiremonth causes you to not have periods or to have fewer periods. Others are packaged so that you havea period every 3 months. Your doctor will tell you what type of pills you have. Follow-up care is a stevens part of your treatment and safety. Be sure to make and go to all appointments, and call your doctor if you are having problems. It's also a good idea to know your test resultsand keep a list of the medicines you take. How can you use it safely? How to take the pill Follow your doctor's instructions about when to start taking your pills. If you start your pills within 5 days of starting your period, you don't need to use a backup method of control. If you start your pills any other time, use backup control, such as a condom, or don't have vaginal sex for 7 days. Take your pills every day, at about the same time of day. To help yourself do this, try to take them when you do something else every day, such as brushing your teeth. You can use the pill continuously and skip your period. When you get to the week that you take hormone-free pills, skip those pills and instead start right away on your next pill pack. Continue to take your pill every day. Talk to your doctor if you have any questions. Check with your doctor before you use any other medicines. This includes kykv-awp-qgnssqi medicines, vitamins, herbal products, and supplements. control hormones may not work as well to preventpregnancy when combined with other medicines. If you forget to take a pill Always read the label for specific instructions, or call your doctor. Here are some basic guidelines: If you miss 1 hormone pill, take it as soon as you remember. Ask your doctor if you may need to usea backup control method, such as a condom, or not have vaginal sex. If you miss 2 or more hormone pills, take one as soon as you remember you forgot them. Then read the pill label or call your doctor about instructions on how to take your missed pills. Use a backup method of control or don't have vaginal sex for 7 days. is more likely if you miss more than 1 pill. If you had vaginal sex, you can use emergency contraception to help prevent . The most effective emergency contraception is an intrauterine device, or IUD (inserted by a doctor). You can also get emergency contraceptive pills. You can get them with a prescription from your doctor. Or you can get them without a prescription at most [facility]. What should you think about when using combination pills? Some pros of using the pill These pills work better than barrier methods, such as condoms and diaphragms. They may reduce acne and heavy bleeding. They may also reduce cramping and other symptoms of PMS (premenstrual syndrome). The pills let you control your periods. You can schedule your periods to be every month or every few months. Or you can choose not to have them at all. You may take pills that continue to give you hormones during the whole month (continuous use). This protects against and is also a safe way to avoid having your period. This may help if you have painful periods. You don't have to interrupt sex to use the pills. Some cons of using the pill You have to take a pill at the same time every day to prevent . Combination pills don't protect against sexually transmitted infections (STIs), such as herpes or HIV/AIDS. You can use a condom to reduce your risk of getting an STI. They may cause changes in your period. You may have little bleeding, skipped periods, or spotting. If you're using pills that give you hormones for the whole month, your periods will stop. But you may still have breakthrough bleeding. This usually isn't harmful and may decrease over time. They may cause mood changes or less interest in sex. Combination pills contain estrogen. They may not be right for you if you have certain health problems. When should you call for help? Call 911 anytime you think you may need emergency care. For example, call if you have: Sudden, severe chest pain. Difficulty breathing. Sudden, severe headache. Call your doctor now or seek immediate medical care if you have: Severe pain in your belly. Headaches that: Happen more often. Are getting worse. Start with auras, such as seeing spots, wavy lines, or flashing lights. Signs of a blood clot, such as: Pain in the calf, back of the knee, thigh, or groin. Swelling in the leg or groin. A color change on the leg or groin. The skin may be reddish or purplish, depending on your usual skin color. Watch closely for changes in your health, and be sure to contact your doctor if: You think you might be . You think you may be depressed. You think you may have been exposed to or have a sexually transmitted infection. Where can you learn more? 1. Go to https://www.[employer].CloudAmbo/healthlibrary. 2. Enter Z218 in the search box. Current as of: June 21, 2023 Content Version: 14.5 ?? [employer]. Care instructions adapted under license by your healthcare professional. If you have questions about a medical condition or this instruction, always ask your healthcare professional. [employer] disclaims any warranty or liability for your use of this information. documented in this encounter Plan of Treatment Not on file documented as of this encounter Results * OBGYN Pelvic/Aquatics Manager Ultrasound (09/13/2024 11:13 AM CDT) Uterus AP Diameter (Height) 3.00 cm EXTERNAL RESULTS Uterus Longitudinal Diameter (Length) 6.90 cm EXTERNAL RESULTS Uterus Transverse Diameter (Width) 3.50 cm EXTERNAL RESULTS Uterus Volume 37.93 ml CABLE RESPOOLER AL RESULTS Endometrium Thickness 5.20 mm EXTERNAL RESULTS Left Ovary Perpendicular Diameter (Height) 1.50 cm EXTERNAL RESULTS Left Ovary Longitudinal Diameter (Length) 2.80 cm EXTERNAL RESULTS Left Ovary Hilum-Cortex Diameter (Width) 2.00 cm EXTERNAL RESULTS Left Ovary Volume 4.40 ml EX TERNAL RESULTS Right Ovary Perpendicular Diameter (Height) 1.20 cm EXTERNAL RESULTS Right Ovary Longitudinal Diameter (Length) 1.40 cm EXTERNAL RESULTS Right Ovary Hilum-Cortex Diameter (Width) 1.90 cm EXTERNAL RESULTS Right Ovary Volume 1.67 ml E XTERNAL RESULTS Anatomical Region Laterality Modality Pelvis Ultrasound Narrative 09/13/2024 11:25 AM CDT Table formatting from the original result was not included. SPREADING MACHINE OPERATOR Ultrasound Exam performed on: 09/13/2024 Referring provider: Anjelica Davidson APRN, CNM Referring clinic: [facility] Clinical indications: Menorrhagia with regular cycle LMP: 08-31-2024 Oiler Helper(s) initials: KI The pelvic organs are imaged using: both transvaginal and transabdominal transducers to better visualize the pelvic anatomy. Today's ultrasound was compared to previous report from: 07-23-2023 Measurements and comments Uterus: Length Height Width 6.90 3.00 3.50 cm Position: retroverted and anteflexed Comments: symmetrical Cervix and lower uterine segment are: Normal Myometrium: homogeneous Saline infusion sonohysterogram: no Endometrium: 5.20 mm, smooth and regular Right ovary: Length Height Width Volume 1.40 1.20 1.90 cm 1.67 ml Comments: appears normal Left ovary: Length Height Width Volume 2.80 1.50 2.00 cm 4.40 ml Comments: appears normal Adnexa: no masses seen Peritoneal fluid: absent Other procedures done: none Impression: Normal-appearing uterus and endometrium. Normal-appearing bilateral ovaries and adnexa. No free fluid. Plan: These findings were reviewed with the patient. Jazmin will follow up with referring provider. Irina Meng MD us Anjelica Davidson ASSOCIATE RELATIONS SPECIALIST, CNM RAD US Final Res ult documented in this encounter Visit Diagnoses Diagnosis Menorrhagia with regular cycle- Primary Excessive or frequent menstruation Menorrhagia with regular cycle Excessive or frequent menstruation documented in this encounter Care Teams Biophysics Professor Relationship Specialty Start Date End Date Belle Diaz, KEYONA [address] [place] [address] PCP - General Physician Quick Mixer Operator 08/15/21 documented as of this encounter
--- OUTSIDE RECORDS SUMMARY | 2024-09-06 19:49 | XMS_ITS | Encounter Summary ---
Author Organization [facility] Address [address] [place] [address] Care Team Providers Care Barrel Endshake Adjuster Name Role Phone None Reported, Pcp Primary [...] CDT - 09/06/2024 9:19 PM CDT Emergency [facility] [address] [place] [phone] Peña Pal, MORA, C.N.P., D.N.P. [address] [place] [address] Cyclical Vomiting Syndrome Unrelated To Migraine [...] before this syndrome gets better. Continue with sbsi-aol-byuwije Capsaicin cream 3 times a day to your stomach. Medicationsas ordered. Follow-up with primary care. Return to the emergency department with worsening symptoms. Zomauro at [facility]. Compazine suppositories at [facility]. Thank you for utilizing [facility] for your care! * Attachments The following attachments cannot be sent through Care Everywhere. * Cannabinoid Hyperemesis Syndrome (Maldivian) documented in this encounter Medications at Time [...] History provided by: Patient and significant other founder chairman and chief creative officer needed/used: no REVIEW OF SYSTEMS Constitutional: Negative [...] ED COURSE ED Course as of 09/06/242122 [facility] Sep 06, 20241952 I performed my initial [...] Compazine rectal. Patient was also instructed to poultry picker Capsaicin cream and use the 3 times [...] care as needed. Peña Pal DNP, MORA, BOTANY LABORATORY ASSISTANT-C, AGACNP-BC, ENP-C Emergency Medicine [1] Past Medical History: Diagnosis Date Anorexia Anxiety Generalized Disorder Asthma NOS Bulimia Nervosa (HCC) Depressive Disorder Gastroesophageal Reflux Disease NOS [2] Patient Active Problem List Diagnosis Cyclical Vomiting Syndrome Unrelated To Migraine Suicide Ideation Suicide Attempt Initial Encounter ([facility]) Posttraumatic Stress Disorder Brief Anxiety Generalized Disorder [...] - 2.3 mg/dL 09/06/2024 8:23 PM CDT [facility] Blood (Blood, Venous) 09/06/2024 8:03 PM CDT 09/06/2024 8:05 PM CDT Peña Pal APRN, C.N.P., D.N.P. LAB BLOOD AD D-ON Final Result [facility] [address] [place] [id number], [place] [facility] in [address] [address] * (ABNORMAL) CBC with Differential, Blood (09/06/2024 8:03 PM CDT) [facility] Hemoglobin 13.1 11.6 - 15.0 g/dL 09/06/2024 [...] D.N.P. LAB BLOOD AD D-ON Final Result [facility] [address] [address], [facility] CNFL [facility] in [address] [address] * (ABNORMAL) Basic Metabolic Panel (09/06/2024 8:03 [...] D.N.P. LAB BLOOD AD D-ON Final Result [address] [address], [place] CN[facility] in [address] [address] documented in this encounter Visit Diagnoses Diagnosis [...] R.N.) documented in this encounter Care Teams Barrel Endshake Adjuster Relationship Specialty Start Date End Date None Reported, Pcp PCP - General Family Medicine 09/06/24 documented as of this encounter
--- OUTSIDE RECORDS SUMMARY | 2024-09-11 09:20 | XMS_ITS | Encounter Summary ---
Author Organization [facility] Address [address] [place], [place] [address]. [place] [address] Care Team Providers Care Supervisory Cbp Officer Name Role Phone Reynaldo Moya MD Unavailable + Ilya Muñoz PA-C Unavailable No Ref-Primary, Physician Primary Care Provider Reason for Visit * Reason Comments Nausea & Vomiting Encounter Details Date Type Department Care Team (Late st Contact Info) Description 09/11/2024 9:20 AM CDT - 09/11/2024 12:21 PM T Emergency [facility] Emergency Dept [address] [place] [address] Sharan Pal PA-C [facility] [address] [place], [place] [id number] Cannabis hyperemesis syndrome concurrent with and due [...] in an abandoned building, in an overnight group home, or couch-surfing.) Yes 08/04/2023 Are you worried [...] on file Legal Sex Female 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 10 tablet 09/11/2024 09/14/2024 documented as of this encounter ED Notes * Sanrda Márquez RN - 09/11/2024 10:34 AM CDT Slat Basket Maker Helper entered room due to call light being [...] discusses previous negative experience with Triperidol at [facility]. Independent Historian EMS as detailed above. Review of External Notes [facility] ED visit on 09/06/24 for CVS Past [...] to prior, dated 08/25/22. Rate 57 bpm. OR interval 144 ms. QRS duration 86 ms. [...] 12.5 mg (12.5 mg Intravenous $Given 09/11/24 1045) Procedures Procedures Discussion of Management None ED Course ED Course as of 09/11/24 1222 TueSep 11, 2024 0954 I obtained history and examined the patient as noted above 1202 I rechecked the patient and explained findings. We discussed plans for discharge and the patient is agreeable with this plan. Additional Documentation None Medical Decision Making / Diagnosis [facility] Diagnoses: None MIPS None MDM Jazmin Carroll [...] Atrial Rate 57 BPM RADIOLOG Y RESULTS OR Interval 144 ms RADIOLOG Y RESULTS QRS Duration 86 ms RADIOLO GY RESULTS QT 432 ms RADIOLOGY RESULTS QTc 420 ms RADIOLOGY RESULTS P [place] degrees RADIOLOGY RESULTS R AXIS 80 degrees RADIOLOGY RESULTS T [place] 57 degrees RADIOLOGY RESULTS Interpretation ECG Sinus bradycardia with sinus arrhythmia Otherwise normal ECG When compared with ECG of 26-Oct-2022 22:28, No significant change was found Confirmed by - EMERGENCY ROOM, PHYSICIAN ([id number]), order editor Joao Galeano ([id number]) on 09/11/2024 11:53:15 AM RADIOLOGY RESULTS 09/11/2024 [...] ORDERABLES Final Re sult Performing Organization Address City/[facility]/ZIP Co de Phone Number [facility] Care Lab [address] Lab (1st floor, no room number) [place] [address] * Troponin T, High Sensitivity (09/11/2024 9:28 AM CDT) [facility] Troponin T, High Sensitivity <6 <=14 ng/L [...] LAB - BLOOD ORDERABLES Final Re sult [facility] Care Lab [address] Lab (1st floor, no room number) [place] [address], [facility] * Lipase (09/11/2024 9:28 AM CDT) Lipase 14 13 - 60 U/L 09/11/2024 9:59 AM CDT [facility] Blood BLOOD SPECIMEN / Unknown Venipuncture / Unknown 09/11/2024 9:28 AM CDT 09/11/2024 9:31 AM CDT Sharan Pal PA-C LAB - BLOOD ORDERABLES Final Re sult [facility] Acute Care Lab [address] Lab (1st floor, no room number) [place] [address], [facility] * (ABNORMAL) Comprehensive metabolic panel (09/11/2024 9:28 [...] ORDERABLES Final Re sult Performing Organization Address [facility]/ZIP Co de Phone Number [facility] Lab [address] Lab (1st floor, no room number) [place] [phone] * Extra Purple Top Tube (09/11/2024 9:28 AM CDT) Hold Specimen [facility] 09/11/2024 10:31 AM CDT [facility] Blood BLOOD SPECIMEN / Unknown Venipuncture / Unknown 09/11/2024 9:28 AM CDT 09/11/2024 9:31 AM CDT Sharan BRICE-Gabby LAB - BLOOD ORDERABLES Final Re sult [facility] Lab [address] Lab (1st floor, no room number) [place] [phone] * Extra Green Top ([place] Heparin) Tube (09/11/2024 9:28 AM CDT) Hold Specimen [facility] 09/11/2024 10:31 AM CDT [facility] Blood BLOOD SPECIMEN / Unknown Venipuncture / Unknown 09/11/2024 9:28 AM CDT 09/11/2024 9:31 AM CDT Sharan Gagnone PA-C LAB - BLOOD ORDERABLES Final Re sult Performing Organization Address [facility]/ZIP Co de Phone Number [facility] Care Lab [address] Lab (1st floor, no room number) [place] [phone] [place] [address] * Extra Red Top Tube (09/11/2024 9:28 AM CDT) Hold Specimen [facility] 09/11/2024 10:31 AM CDT [facility] Blood BLOOD SPECIMEN / Unknown Venipuncture / Unknown 09/11/2024 9:28 AM CDT 09/11/2024 9:31 AM CDT Sharan Pal PA-C LAB - BLOOD ORDERABLES Final Re sult Performing Organization Address [facility]/ZIP Co de Phone Number [facility] Care Lab [address] Lab (1st floor, no room number) [place] [phone] * Extra Blue Top Tube (09/11/2024 9:28 AM CDT) Hold Specimen [facility] 09/11/2024 10:31 AM CDT [facility] Blood BLOOD SPECIMEN / Unknown Venipuncture / Unknown 09/11/2024 9:28 AM CDT 09/11/2024 9:31 AM CDT Sharan Pal PA-C LAB - BLOOD ORDERABLES Final Re sult Performing Organization Address City/[facility]/ZIP Co de Phone Number [facility] Lab [address] Lab (1st floor, no room number) [place] [phone] [place] [address] documented in this encounter Visit Diagnoses Diagnosis [...] documented as of this encounter Care Teams Supervisory Cbp Officer Relationship Specialty Start Date End Date Reynaldo Moya MD [facility] [address] [place] [address] PCP - Mental Health/Behavioral Medicine Psychiatry 03/28/19 No Ref-Primary, Physician PCP - General 09/11/24 Ilya Muñoz PA-C [address] [place] [address] KIRK DIALLO [id number] Assigned PCP 08/14/23 documented as of this encounter
--- OUTSIDE RECORDS SUMMARY | 2024-09-13 11:00 | XMS_ITS | Encounter Summary ---
Author Organization [employer] Address [address], [place] [address] Care Team Providers Care Finish Remover Name Role Phone Belle Diaz PA-C Primary Care Provider + [phone] Reason for Visit * Procedure/Equipment (Routine) - Incomplete Specialty Diagnoses / Procedures Referred By Contac t Referred To Contact Diagnoses Menorrhagia with regular cycle Procedures OBGYN Pelvic/Industrial Roof Plumber Ultrasound Anjelica Davidson APRN, [address] [place] [address] Phone: tel: fax: Referral ID Status Reason Start Date Expiration Date V isits Requested Visits Authorized [id number] Incomplete 09/06/2024 12/06/2025 1 1 Encounter Details Date Type Department Care Team (Latest Contact Info) Description 09/13/2024 11:00 AM CDT Ancillary Procedure [place] prison warden Ultrasound [address] [place] [address] Anjelica Davidson APRN, MAYA [address] [place], [place] [phone] Menorrhagia with regular cycle Social History Tobacco Use Types Packs/Day Years [...] PM CDT documented as of this encounter Functional Status documented as of this encounter Plan of Treatment Not on file documented as of this encounter Procedures Procedure Name Priority Date/Time Associated Diagnosis Comments OBGYN PELVIC/GANG SAWYER ULTRASOUND Routine 09/13/2024 11:13 AM CDT Menorrhagia with regular cycle documented in this encounter Results * OBGYN Pelvic/Industrial Roof Plumber Ultrasound (09/13/2024 11:13 AM CDT) Uterus AP Diameter (Height) 3.00 cm EXTERNAL RESULTS Uterus Longitudinal Diameter (Length) 6.90 cm EXTERNAL RESULTS Uterus Transverse Diameter (Width) 3.50 cm EXTERNAL RESULTS Uterus Volume 37.93 ml SUPERVISOR CORE DRILLING AL RESULTS Endometrium Thickness 5.20 mm EXTERNAL [...] from the original result was not included. GANG SAWYER Ultrasound Exam performed on: 09/13/2024 Referring provider: Anjelica Davidson APRN, CNM Referring clinic: STEAM PRESSURE CHAMBER OPERATOR Clinical indications: Menorrhagia with regular cycle LMP: 08-31-2024 Sales Process Manager(s) initials: KI The pelvic organs are imaged [...] provider. Irina Meng MD us Anjelica Davidson APRN, CNM RAD US Final Res ult documented in this encounter Visit Diagnoses Diagnosis Menorrhagia with regular cycle Excessive or frequent menstruation documented in this encounter Care Teams Finish Remover Relationship Specialty Start Date End Date Belle Diaz PA-C [address] [place] [address] PCP - General Physician Ripsaw Matcher 08/15/21 documented as of this encounter
--- OUTSIDE RECORDS SUMMARY | 2024-09-13 14:40 | XMS_ITS | Encounter Summary ---
Author Organization [facility] er Address [address] [place] [address] Care Team Providers Care Institutional Research Coordinator Name Role Phone Elsewhere, Pcp Primary Care Provider Unavailabl e Reason for Visit * Reason Comments Follow-up ED F/U Vomiting Cannabis hyperemesis syndrome Encounter Details Date Type Department Care Team (Late st Contact Info) Description 09/13/2024 2:40 PM CDT Office Visit [place] [address] [place] [address] Hansel Holden MD [address] [facility] [address] [place] [address] Moderate episode of recurrent major depressive disorder [...] often do you attend chur ch or amish services? More than 4 times per year 07/06/2023 Do you belong to any clubs o r organizations such as cheondoism groups, unions, fraternal or athletic groups, or [...] Date Recorded PHQ-9 Total Score 18 07/06/2023 [facility] [place] of Occupat ional Health - Occupational Stress [...] any time in the past 12 m [facility], were you homeless or living in a [facility]p (including now)? No 07/06/2023 Comments Unknown Sex [...] she was admitted and seen at the [place] emergency room for similar symptoms which had an extensive workup which was unremarkable. Unfortunately she is feeling wonderful at the moment her nausea and vomiting has not improved sinceher hospitalization last week and [place] she is taking all of her Zofran [...] times. She is undergoing treatment at the [facility] she has been on several antidepressants but [...] ambulance witha recommendation to take her to [facility] and the [facility]. I encouraged her to make sureshe sets up a follow-up appointment with me once she gets discharged documented in this encounter Plan of Treatment Not on file documented as of this encounter Visit Diagnoses Diagnosis Moderate episode of recurrent major depressive disorder (HCC)- Primary Cannabis hyperemesis syndrome concurrent with and due to cannabis dependence (HCC) documented in this encounter Care Teams Institutional Research Coordinator Relationship Specialty Start Date End Date Elsewhere, Pcp [address] [facility] [place] [address] PCP - General Forgeman Helper 06/20/24 documented as of this encounter
--- OUTSIDE RECORDS SUMMARY | 2024-09-13 16:04 | XMS_ITS | Encounter Summary ---
Author Organization [employer] Address [address], [place] [address] Care Team Providers Care Dock Worker Name Role Phone Belle Diaz PA-C Primary Care Provider + [phone] Reason for Visit * Reason Comments Nausea Abdominal Pain Encounter Details Date Type Department Care Team ([facility] st Contact Info) Description 09/13/2024 4:04 PM CDT - 09/13/2024 5:35 PM CDT Emergency [facility] Emergency Dept [address] [place] [address] Discharge Disposition: Left Without Being Seen Social [...] - 145 mmol/L 09/13/2024 4:54 PM [facility] Potassium 3.8 3.5 - 5.1 mmol/L 09/13/2024 4:54 PM [facility] Comment:Specimen slightly he molyzed. Hemolysis may affect result. Chloride 110(H) 98 - 109 mmol/L 09/13/2024 4:54 PM [facility] CO2 12(L) 20 - 29 mmol/L 09/13/2024 4:54 PM [facility] Anion Gap 18(H) 6 - 16 mmol/L 09/13/2024 4:54 PM [facility] Calcium 10.0 8.4 - 10.4 mg/dL 09/13/2024 4:54 PM [facility] BUN 10 7 - 26 mg/dL 09/13/2024 4:54 PM [facility] Creatinine 0.79 0.55 - 1.02 mg/dL 09/13/2024 4:54 PM [facility] Glucose 96 70 - 100 mg/dL 09/13/2024 4:54 PM [facility] Comment:The given reference range is for the fasting state. Non-fasting reference range for glucose is 70 - 180 mg/dL. GFR, Estimated >60 >60 mL/min/1.7 3m2 09/13/2024 4:54 PM [facility] Blood Venipuncture / Unknown 09/13/2024 4:20 PM CDT 09/13/2024 4:25 PM CDT us Peañ Diaz MD LAB_1 Final R esult [address] [address], [facility] [email or web address] * (ABNORMAL) Complete Blood Count-No Diff (09/13/2024 4:20 PM CDT) WBC 15.3(H) 3.5 - 10.5 x10(9)/L 09/13/2024 4:28 PM [facility] RBC 4.38 3.90 - 5.03 x10(12)/L 09/13/2024 4:28 PM [facility] Hemoglobin 13.1 12.0 - 15.5 g/dL 09/13/2024 4:28 PM [facility] HCT 37.2 34.9 - 44.5 % 09/13/2024 4:28 PM [facility] MCV 84.9 80.0 - 100.0 fL 09/13/2024 4:28 PM [facility] MCH 29.9 27.6 - 33.3 pg 09/13/2024 4:28 PM [facility] MCHC 35.2 31.5 - 35.2 g/dL 09/13/2024 4:28 PM [facility] RDW 12.8 11.9 - 15.5 % 09/13/2024 4:28 PM [facility] Platelets 311 150 - 450 x10(9)/L 09/13/2024 4:28 PM [facility] Automated NRBC 0 <=0 /100 WBC 09/13/2024 4:28 PM [facility] Blood Venipuncture / Unknown 09/13/2024 4:20 PM CDT 09/13/2024 4:25 PM CDT Peña Diaz MD LAB_1 [place] [address], [facility] [[email or web address]] documented in this encounter Visit Diagnoses * [...] PM CDT Patient arrive via EMS from [facility] Per clinic: Suspected Cannabis hyperemesis Vomiting and abdominal pain Medic Fentanyl 50 mcg, 4mg Zofran Medic VSS documented in this encounter Active and Recently Administered Medications Care Teams Dock Worker Relationship Specialty Start Date End Date Belle Diaz PA-C [address] [place] [address] PCP - General Physician Transport Technician 08/15/21 documented as of this encounter
--- OUTSIDE RECORDS SUMMARY | 2024-09-14 16:42 | XMS_ITS | Encounter Summary ---
Author Organization [facility] Address [address] [place] [address] Care Team Providers Care Dramatic Art Teacher Name Role Phone None Reported, Pcp Primary Care Provider Unavail able Reason for Visit * Reason Comments Vomiting 18 year old female a dmits with hyperemesis . Pt states she was seen in the Er in [place] last night. Encounter Details Date Type Department Care Team ([facility] st Contact Info) Description 09/14/2024 4:42 PM CDT - 09/14/2024 6:13 PM CDT Emergency [facility] [address] [place] [phone] Mikal Loyola, Godwin.-C., P.A. [address] [place] [phone] Vomiting Persistent (Primary Dx) Discharge Disposition: Home or Self Care Social [...] Sign Reading Time Taken Comments Blood Pressure 130/68 09/14/2024 5:47 PM CDT Pulse 68 09/14/2024 5:47 PM CDT Temperature 36.8 C (98.2 F) 09/14/2024 4:52 PM CDT Respiratory Rate 16 09/14/2024 4:52 PM CDT Oxygen Saturation 100% 09/14/2024 5:47 PM CDT Inhaled Oxygen Concentration - - Weight 74 kg (163 lb 2.3 oz) 09/14/2024 4:53 PM CDT Height - - Body Mass Index - - documented in this encounter Discharge Instructions * Discharge Instructions* Mikal Loyola P.A.-C., P.A. - 09/14/2024 6:05 PM CDT Based on your symptoms, especially the relief you found from hot showers and the way your body responded to our treatment, we strongly believe you are experiencing something called Cannabis Hyperemesis Syndrome (CHS). This condition causes severe, cyclical nausea, vomiting, and cramping abdominal pain. Even if you don't use cannabis often or only use certain forms, it can still trigger these veryupsetting episodes. We've checked for other serious causes of your symptoms, and at this time, we don't believe you have a life-threatening condition. The Most Important Step for You to Get Better: Stop All Cannabis Use Immediately: This is the most crucial step to stop these severe episodes and prevent them from coming back. You must completely stop using all cannabis products (including marijuana, edibles, vapes, and oils). Even a small amount can continue to trigger these symptoms and leadto more emergency visits. What to Do at Home: Medications: Zofran (Ondansetron) 4mg: Take 1 tablet by mouth every 8 hours as needed for nausea. Ibuprofen 600mg: Take 1 tablet by mouth every 6 hours as needed for abdominal pain, with food. Diet: Start with clear liquids (water, clear broth, clear sodas like enrique yadi, popsicles). If youtolerate these well, slowly advance to bland foods (toast, crackers, plain rice, bananas, applesauce). Avoid greasy, spicy, acidic, or fatty foods for the next few days. Hydration: Drink plenty of fluids to stay hydrated, even small sips frequently if you are still nauseated. Dehydration can make you feel worse. Activity: Rest as needed. Avoid strenuous activity until you feel fully recovered. When to Return to the Emergency Department (Go to the nearest ED or call 911 if you have any of thefollowing): Worsening or new severe abdominal pain. Inability to keep down any fluids or medications, leading to worsening dehydration. Vomiting blood (bright red or looks like coffee grounds). High fever (oral temperature over 100.4??F or 38??C). Severe dizziness, lightheadedness, or fainting. Any new or concerning symptoms that you are worried about. * Attachments The following attachments cannot be sent through Care Everywhere. * Cannabinoid Hyperemesis Syndrome (Hungarian) documented in this encounter Medications at Time [...] as of this encounter ED Notes * Mikal Loyola P.A.-C., P.A. - 09/14/2024 5:04 PM CDT SUBJECTIVE CHIEF COMPLAINT/REASON FOR VISIT Vomiting (18 year old female admits with hyperemesis . Pt states she was seen in the Er in [place] last night.) HISTORY OF PRESENT ILLNESS Jazmin Carroll is a 18-year-old female presenting to the Emergency Department with severe, recurrentnausea and vomiting, ongoing for approximately one week, with acute worsening today. She describes non-bloody, non-bilious emesis. Associated symptoms include diffuse, cramping abdominal pain, which she rates as severe and causes her to writhe in discomfort. A stevens alleviating factor noted by the patient is temporary relief with hot showers. She reports a history of Cyclical Vomiting Syndrome (CVS) and states this episode feels similar. Of note, she has presented to outside Emergency Departmentsfor identical complaints recently, specifically [place] ED yesterday (September 13, 2024) and [facility] on September 11, 2024. She denies recent illness or injury. Pertinent negatives include fever, chills, chest pain, shortness of breath, cough, hematemesis, melena, hematochezia, dysuria, increasedurinary frequency, diarrhea, constipation, rash, and peripheral swelling. She denies recent use of tetrahydrocannabinol (THC). 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 Negative for activity change and fever. HENT: Negative for congestion, ear pain, rhinorrhea and sore throat. Eyes: Negative for photophobia and visual disturbance. Respiratory: Negative for cough, chest tightness and shortness of breath. Cardiovascular: Negative for chest pain. Gastrointestinal: Positive for abdominal pain, nausea and vomiting. Negative for constipation, diarrhea and hematemesis. Genitourinary: Negative for dysuria. Musculoskeletal: Positive for myalgias. Negative for back pain and neck pain. Skin: Positive for pallor. Negative for wound. Neurological: Positive for light-headedness and headaches. Negative for weakness. Psychiatric/Behavioral: Positive for agitation. Negative for confusion. OBJECTIVE Initial Vitals [09/14/24 1652] Temperature 36.8 ??C Pulse Rate (!) 59 Heart Rate Resp Rate 16 Blood Pressure 145/76 SpO2 100 % Pain Score 8 PHYSICAL EXAMINATION Constitutional: Nursing note and vitals reviewed. She is active. She does not appear ill. She appears distressed. HENT: Head: Normocephalic and atraumatic. Eyes: Conjunctivae, EOM and lids are normal. Pupils are equal, round, and reactive to light. Periorbital area normal appearing. Neck: Phonation normal. Cardiovascular: Normal rate. Pulmonary/Chest: Effort normal. No tachypnea. No respiratory distress. Abdominal: Normal appearance. exhibits no distension. There is no abdominal tenderness. There is norebound and no guarding. Musculoskeletal: Cervical back: No pain with movement. Neurological: Alert and oriented to person, place, and time. Normal speech. Skin: Skin is warm and normal color. No rash noted. She is diaphoretic. There is pallor. Psychiatric: Her mood appears anxious. Mood/affect: Tearful. Agitated. ASSESSMENT/PLAN Assessment and Plan Jazmin Carroll is a 18-year-old female with a known history of Cyclical Vomiting Syndrome presentingwith severe, recurrent nausea, vomiting, and diffuse cramping abdominal pain, ongoing for one week with acute exacerbation today. This miles her third ED visit for identical complaints within the past three days ([place] ED yesterday, [facility] on September 11, 2024). The patient's report of symptomatic relief with hot showers is a highly specific indicator for Cannabis Hyperemesis Syndrome (CHS), despite her denial of recent THC use. Her initial presentation was marked by significant discomfort, diaphoresis, and writhing, consistent with clinical dehydration secondary to intractable emesis. Initial laboratory evaluation revealed a leukocytosis of 18.1 K/uL with neutrophilia (14.46 K/uL) and monocytosis (1.19 K/uL), along with a mild anion gap metabolic acidosis (Anion Gap 21, Bicarbonate 17). Renal function and glucose were within normal limits. Response to Treatment: Following administration of Droperidol 2.5 mg IV, Diphenhydramine 50 mg IV, and 1 liter of Normal Saline IV, the patient demonstrated a rapid and significant clinical improvement on reassessment, reporting much better control of nausea, cessation of vomiting, and marked decrease in abdominal pain. Her vital signs remained stable throughout her ED course. 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 The leukocytosis and mild metabolic acidosis are reasonably attributed to the physiological stress response from prolonged intractable vomiting and dehydration, rather than an acute, severe infectious or surgical process, especially given the benign abdominal exam and positive clinical trajectory. Life-threatening causes have been considered and are deemed less likely given her clinical course in the ED. Plan: Gastrointestinal/Symptomatic Management: Patient's symptoms are now significantly improved following intravenous antiemetics (Droperidol 2.5mg, Diphenhydramine 50mg) and aggressive intravenous hydration (1L NS infused). No further acute interventions are immediately indicated given excellent clinical response. Crucially, insurance counselor patient unequivocally on the strong likelihood of Cannabis Hyperemesis Syndrome (CHS) and the absolute necessity of immediate and complete cessation of all cannabinoid products (including edibles, vaping, and all forms of marijuana) for definitive and sustained resolution of her symptoms. Emphasize that continued use will likely result in recurrence of severe episodes and repeat ED visits. Educate on prudent dietary advancement (clear liquids to bland foods), maintaining hydration, and general abdominal pain precautions. Labs/Imaging: CBC and BMP results have been reviewed. The leukocytosis and anion gap metabolic acidosis, while initially concerning, are now attributed to dehydration and systemic stress from prolonged vomiting given the patient's robust clinical improvement. No further immediate workup for these findings is planned. No abdominal imaging (US/CT) indicated at this time given the benign abdominal exam and significantclinical improvement. Reconsideration would occur if symptoms recur, worsen, or new focal findings emerge. Differential Diagnosis Management: While other serious etiologies were considered (as detailed below), the classic clinical picture and positive response to targeted therapy reinforce CHS as the leading diagnosis. Disposition: Strongly emphasize the need for close outpatient follow-up with her primary care physician and/or agastroenterologist to establish a long-term management plan for her cyclical vomiting, specificallyaddressing the highly suspected CHS. Provide explicit discharge instructions on return precautions.. DIFFERENTIAL DIAGNOSES Cannabis Hyperemesis Syndrome (CHS): This is the primary working diagnosis. The characteristic features of cyclical severe nausea, diffuse cramping abdominal pain, and the unique alleviating factor of hot showering, coupled with recurrent ED visits for the same symptoms, are highly diagnostic. The leukocytosis and anion gap metabolic acidosis are well-documented sequelae of severe, prolonged vomiting and dehydration in CHS, and her excellent clinical response supports this etiology. Cyclical Vomiting Syndrome (CVS) flare: Patient has a documented history of CVS, and the presentation shares many similarities. However, the specific hot shower- seeking behavior strongly favors CHS, which is increasingly recognized as a distinct entity or a variant of CVS induced by cannabinoid use. Acute Gastroenteritis: While common, the severity, protracted course (one week), cyclical nature, and specific hot-shower relief make typical viral or bacterial gastroenteritis less likely as the sole explanation. Dehydration and Electrolyte Imbalance secondary to intractable emesis: This is a confirmed and significant contributing factor to her symptoms and lab abnormalities (leukocytosis as a stress response, anion gap metabolic acidosis from volume contraction and potential starvation ketosis), which was effectively managed with IV fluids. Appendicitis (early/atypical presentation): Considered given diffuse abdominal pain and leukocytosis. However, the benign abdominal exam, diffuse nature of pain, lack of progression to focal tenderness, and dramatic improvement with medical management make acute appendicitis less likely at this time. Bowel Obstruction (Partial): Can cause cramping abdominal pain, nausea, and vomiting. A benign exammakes complete obstruction unlikely, but partial obstruction remains a possibility. The leukocytosis could suggest bowel wall inflammation. Clinical improvement lessens the immediate concern but persistent symptoms would prompt imaging. Pancreatitis: Presents with abdominal pain (often epigastric, radiating to back), nausea, and vomiting. Leukocytosis and acidosis can be seen. While possible, the diffuse cramping nature and specifichot shower relief point away from isolated pancreatitis. Diabetic Ketoacidosis (DKA): Can present with profound nausea, vomiting, and abdominal pain, along with an anion gap metabolic acidosis. Glucose is within normal limits, effectively ruling out DKA asthe cause of the acidosis. Urosepsis / Pyelonephritis: Can cause abdominal pain, nausea, vomiting, and leukocytosis, potentially with acidosis in severe cases. However, patient denies urinary symptoms. A urinalysis would be helpful to definitively rule this out if suspicion was higher. Mesenteric Ischemia: Although rare in this age group, severe abdominal pain, vomiting, leukocytosis, and anion gap acidosis are red flags. The patient's rapid improvement with symptomatic treatment significantly reduces the likelihood of acute bowel ischemia.. PROBLEMS ADDRESSED THIS VISIT Acute Nausea and Vomiting (Resolved in ED) Diffuse Cramping Abdominal Pain (Significantly improved in ED) Clinical Dehydration (Improved with IV fluids) Leukocytosis (18.1 K/uL) Anion Gap Metabolic Acidosis (AG 21, HCO3 17) Suspected Cannabis Hyperemesis Syndrome (Primary working diagnosis) Recurrent Emergency Department Visits for similar presentation. ED Course as of 09/14/241804Sep 14, 2024 170 On initial exam, the patient appears uncomfortable and is writhing in pain. She suspects this is due to cannabis hyperemesis syndrome which he has had many times in the past. Vital signs are allfairly normal. Exam is benign. 1712 Hemoglobin: 13.4 1712 Leukocytes(!): 18.1 1712 CBC with Differential, Blood(!): Hemoglobin 13.4 Hematocrit 38.1 Erythrocytes 4.46 MCV 85.4 RBC Distrib Width 12.9 Platelet Count 339 Leukocytes 18.1(!) Neutrophils 14.46(!) Lymphocytes 2.37 Monocytes 1.19(!) Eosinophils <0.04 Basophils <0.04 1751 Anion Gap, P(!): 21 1751 Bicarbonate, P(!): 17 1751 Basic Metabolic Panel(!): Potassium, P 3.7 Sodium, P 136 Chloride, P 98 Bicarbonate, P 17(!) Anion Gap, P 21(!) BUN (Blood Urea Nitrogen), P 10 Creatinine 0.79 Estimated GFR (eGFR) >90 Calcium, Total, P 10.0 Glucose, P 108 Final Diagnoses: as of 09/14/24 1805 Vomiting Persistent The following tests were considered but ultimately not performed: Lactate: Considered due to anion gap acidosis, but not performed. Given the patient's rapid and significant clinical improvement after rehydration and antiemetics, the acidosis is deemed secondary to prolonged vomiting and dehydration, making acute ischemia or severe sepsis less likely. Urinalysis (UA) with Reflex Culture: Considered due to leukocytosis and abdominal pain but not performed. Patient denied all urinary symptoms, and the overall clinical picture, particularly the response to therapy, did not strongly suggest a primary genitourinary source for her symptoms. Urine Test (HCG): Not performed at this visit. Patient reports a negative urine pregnancytest 9 days ago. Given this recent negative result and her rapid clinical improvement with medical management, a repeat test was not deemed immediately necessary at this time. Abdominal Ultrasound (US) / CT Abdomen/Pelvis: Not performed. A comprehensive physical exam was benign. The patient's dramatic improvement with conservative management significantly reduces the concern for an acute surgical or inflammatory process requiring immediate imaging. Review of prior ED records for any previous imaging studies is being pursued to avoid redundant testing and inform future management if symptoms recur. Liver Function Tests (LFTs) / Lipase: Not performed. No specific clinical indicators (e.g., jaundice, severe epigastric pain radiating to back) suggested primary hepatic or pancreatic pathology that warranted immediate evaluation in the setting of her rapid improvement. Electrocardiogram (ECG): Not performed. Patient denied chest pain, palpitations, or other cardiac symptoms, and her heart rate was within normal limits.. Escalation of care, including admission/observation, considered: Admission to the hospital or observation status is not indicated at this time. The patient is hemodynamically stable, vital signs are within normal limits, and she has demonstrated an excellent and sustained clinical response to initial emergency department management. Her symptoms of nausea, vomiting, and abdominal pain have significantly improved. The lab abnormalities (leukocytosis, anion gap acidosis) are deemed secondary to her self-limiting, albeit severe, vomiting and dehydration, and have not necessitated inpatient care.Given the strong clinical suspicion for Cannabis Hyperemesis Syndrome, the most critical intervention is patient education and cessation of cannabinoid use, which is an outpatient management strategy. Should she fail to maintain improvement, develop new concerning symptoms, or show signs of a surgical abdomen or other critical condition, re-evaluation for admission would be immediately pursued. Her history of recurrent ED visits further underscores the importance of a definitive outpatient follow-up plan rather than a prolonged ED stay or inpatient admission for a condition best managed by lifestyle modification.. Mikal Loyola P.A.-C., P.A. 09/14/241810 documented in this encounter Plan of Treatment Not on file documented as of this encounter Procedures Procedure Name Priority Date/Time Associated Diagnosis Comments BASIC METABOLIC PANEL, S/P Routine 09/14/2024 5:24 PM CDT CBC WITH DIFFERENTIAL, B STAT 09/14/2024 5:07 PM CDT documented in this encounter Results * (ABNORMAL) Basic Metabolic Panel (09/14/2024 5:24 PM CDT) Potassium, P 3.7 3.6 - 5.2 mmol/L 09/14/2024 5:44 PM CDT [facility] Sodium, P 136 135 - 145 mmol/L 09/14/2024 5:44 PM CDT [facility] Chloride, P 98 98 - 107 mmol/L 09/14/2024 5:44 PM CDT [facility] Bicarbonate, P 17(L) 22 - 29 mmol/L 09/14/2024 5:44 PM CDT [facility] Anion Gap, P 21(H) 7 - 15 09/14/2024 5:44 PM CDT [facility] BUN (Blood Urea Nitrogen), P 10 6 - 21 mg/dL 09/14/2024 5:44 PM CDT [facility] Creatinine 0.79 0.59 - 1.04 mg/dL 09/14/2024 5:44 PM CDT [facility] Estimated GFR (eGFR) >90 >=60 mL/min/BSA 09/14/2024 5:44 PM CDT [facility] Comment: Estimated GFR calculated using the 2020 CKD_EPI creatinine equation. Calcium, Total, P 10.0 8.6 - 10.0 mg/dL 09/14/2024 5:44 PM CDT [facility] Glucose, P 108 70 - 140 mg/dL 09/14/2024 5:44 PM CDT [facility] Blood 09/14/2024 5:24 PM CDT 09/14/2024 5:26 PM CDT Mikal Loyola P.A.-C., P.A. LAB BLOOD ADD-ON F inal Result [facility] [address] [place] [id number], [facility] CNFL [facility] in [address] [address] * (ABNORMAL) CBC with Differential, Blood (09/14/2024 5:07 PM CDT) [facility] Hemoglobin 13.4 11.6 - 15.0 g/dL 09/14/2024 5:11 PM CDT CNFL Hematocrit 38.1 35.5 - 44.9 % 09/14/2024 5:11 PM CDT [facility] Erythrocytes 4.46 3.92 - 5.13 x10(12)/L 09/14/2024 5:11 PM CDT CN[facility] MCV 85.4 78.2 - 97.9 fL 09/14/2024 5:11 PM CDT [facility] RBC Distrib Width 12.9 12.2 - 16.1 % 09/14/2024 5:11 PM CDT [facility] Platelet Count 339 157 - 371 x10(9)/L 09/14/2024 5:11 PM CDT [facility] Leukocytes 18.1(H) 3.4 - 9.6 x10(9)/L 09/14/2024 5:11 PM CDT CNFL Neutrophils 14.46(H) 1.56 - 6.45 x10(9)/L 09/14/2024 5:11 PM CDT [facility] Lymphocytes 2.37 0.95 - 3.07 x10(9)/L 09/14/2024 5:11 PM CDT [facility] Monocytes 1.19(H) 0.26 - 0.81 x10(9)/L 09/14/2024 5:11 PM CDT CNFL Eosinophils <0.04 0.03 - 0.48 x10(9)/L 09/14/2024 5:11 PM CDT CNFL Basophils <0.04 0.01 - 0.08 x10(9)/L 09/14/2024 5:11 PM CDT CN[facility] Blood (Blood, Venous) 09/14/2024 5:07 PM CDT 09/14/2024 5:09 PM CDT Mikal Loyola P.A.-C., P.A. LAB BLOOD ADD-ON F inal Result [facility] [address] [place] [phone], [facility] CNFL [facility] in [address] [place] [address] documented in this encounter Visit Diagnoses Diagnosis Vomiting Persistent- Primary documented in this encounter Administered Medications Inactive Administered Medications - up to 3 most recent administrations Medication Order MAR Action Action Date Dose Rate Site diphenhydrAMINE injection 50 mg (BenadryL) 50 mg, intravenous, Once, On Tue09/14/24 at 1703, For 1 dose Given 09/14/2024 5:19 PM CDT 50 mg droPERidoL injection 2.5 mg (Inapsine) 2.5 mg, intravenous, Once, On Tue09/14/24 at 1716, For 1 dose Given 09/14/2024 5:18 PM CDT 2.5 mg NaCl 0.9 % bolus 1,000 mL 1,000 mL, intravenous, at 1,000 mL/hr, Administer over 1 Hours, Once, On Tue09/14/24 at 1703, For 1 dose New Bag 09/14/2024 5:25 PM CDT 1,000 mL 100 0 mL/hr documented in this encounter Active and Recently Administered Medications Times are shown in CDT. Scheduled Medication Order 09/12/2024 09/13/2024 09/14/2024 diphenhydrAMINE injection 50 mg (BenadryL) (COMPLETED) 50 mg, intravenous, Once, On Tue09/14/24 at 1703, For 1 dose 1718 (Given - Provid er: Belle Landa R.N.) droPERidoL injection 2.5 mg (Inapsine) 2.5 mg, intravenous, Once, On Tue09/14/24 at 1703, For 1 dose 170 (Due) droPERidoL injection 2.5 mg (Inapsine) (COMPLETED) 2.5 mg, intravenous, Once, On Tue09/14/24 at 1716, For 1 dose 1717 (Given - Provid er: Belle Landa R.N.) NaCl 0.9 % bolus 1,000 mL (COMPLETED) 1,000 mL, intravenous, at 1,000 mL/hr, Administer over 1 Hours, Once, On Tue09/14/24 at 1703, For 1 dose 1725 (New Bag - Prov ider: Belle Landa R.N.)1804 (Stopped - Provider: Belle Landa R.N.) documented in this encounter Care Teams Dramatic Art Teacher Relationship Specialty Start Date End Date None Reported, Pcp PCP - General Family Medicine 09/06/24 documented as of this encounter
--- OUTSIDE RECORDS SUMMARY | 2024-09-15 12:35 | XMS_ITS | Encounter Summary ---
Author Organization [facility] Address [address] [place] [id number] Care Team Providers Care Music Producer Name Role Phone None Reported, Pcp Primary Care Provider Unavail able Reason for Visit * Reason Comments Vomiting Patient states the a bdominal pain, nausea, and vomiting resumed around 0400 after her ER visit yesterday Nausea Abdominal Pain Encounter Details Date Type Department Care Team ([facility] st Contact Info) Description 09/15/2024 12:35 PM CDT - 09/15/2024 4:05 PM CDT Emergency [place] [facility] [address] [place] [phone] Shani Fink P.A.-C., P.A., M.S. [address] [place] [phone] Cyclical Vomiting Syndrome Unrelated To Migraine (Primary Dx); Issue Renewal Prescription Discharge Disposition: Home or Self Care Social [...] Sign Reading Time Taken Comments Blood Pressure 145/87 09/15/2024 4:00 PM CDT Pulse 62 09/15/2024 4:00 PM CDT Temperature 36.9 C (98.4 F) 09/15/2024 12:40 PM CDT Respiratory Rate 20 09/15/2024 12:40 PM CDT Oxygen Saturation 99% 09/15/2024 4:00 PM CDT Inhaled Oxygen Concentration - - Weight 74.9 kg (165 lb 2 oz) 09/15/2024 12:43 PM CDT Height - - Body Mass Index - - documented in this encounter Discharge Instructions * Discharge Instructions* Shani Fink P.A.-C., P.Trini., M.S. - 09/15/2024 3:56 PM CDT Take Tylenol and/or Ibuprofen for pain relief, as needed. You may alternate these medications if one alone does not provide enough relief in pain. Take nausea medicine, as prescribed. mechanics supervisor the Compazine suppositories for added nausea relief, as needed. Abstain from marijuana use. Follow up with your primary care provider for reassessment and further evaluation and treatment of your chronic health issues. Stay well hydrated by drinking plenty of fluids. Pedialyte is a good electrolyte solution, especially for kids. You were examined and treated today in the Emergency Department (ED) on an emergency basis. This visit is not a substitute for comprehensive and ongoing medical care. You will need to follow up with your primary physician for reassessment. Call your doctor today to advise them of your ED visit and arrange for outpatient follow up. Tell your doctor about any new orlasting problems. Return to the Emergency Department for worsening symptoms. Thank you for choosing [facility] for your care today. We hope you had a positive experience in our emergency department. If you receive a patient survey, please take a moment to complete it. We truly appreciate you sharing your experience. Your feedback helps us recognize great care and continue i mproving for all of our patients. We are honored to care for you! * Attachments The following attachments cannot be sent through Care Everywhere. * Severe Throwing Up That Repeats (Cyclic Vomiting Syndrome) in Adults: What to Know (Dutch) documented in this encounter Medications at Time [...] every 12 (twelve) hours. 10 tablet 5 ondansetron ODT (Zofran-ODT) 4 mg disintegrating tablet Dissolve 1 tablet (4 mg total) in the mouth every 8 (eight) hours for 10 days. 20 tablet 5 09/26/19 25 prochlorperazine (Compazine) 25 mg suppository Insert 1 suppository (25 mg total) into the rectum every 12 (twelve) hours as needed for nausea or vomiting. 12 suppository 5 promethazine (PHENERGAN) 25 mg tablet Take 1 tablet (25 mg total) by mouth every 6 (six) hours as needed for nausea or vomiting (Headache). 20 tablet 4 documented as of this encounter ED Notes * Shani Fink P.A.-Gabby., P.A., M.S. - 09/15/2024 12:50 PM CDT CHIEF COMPLAINT/REASON FOR VISIT Vomiting (Patient states the abdominal pain, nausea, and vomiting resumed around 0400 after her ER visit yesterday ), Nausea, and Abdominal Pain PHYSICAL EXAMINATION Nursing notes reviewed. Initial Vitals Temperature 09/15/24 1240 36.9 ??C Pulse Rate 09/15/24 1240 67 Heart Rate -- Resp Rate 09/15/24 1240 20 Blood Pressure 09/15/24 1240 137/82 SpO2 09/15/24 1240 99 % Pain Score 09/15/24 1241 7 Vitals: 09/15/24 1500 09/15/24 1515 09/15/24 1530 09/15/24 1600 BP: (!) 105/52 (!) 106/53 145/87 BP Location: Patient Position: Pulse: 70 63 89 62 Resp: Temp: TempSrc: SpO2: 96% 98% 98% 99% Weight: General: Awake, alert, oriented x3. Well-developed, hydrated and nourished. Nontoxic. No apparent distress. Head: Normocephalic, atraumatic. Eyes: Normal sclerae and conjunctivae, PERRLA, extraocular movements intact ENT: Oropharynx is clear. Nose is symmetric. Nares patent. Moist mucus membranes. Hearing is grossly normal. Neck: Supple, full range of motion, no lymphadenopathy, no meningeal signs. Heart: Regular rate and rhythm. S1 and S2 normal. No murmurs, gallops, or rubs. Chest/Lungs: Normal respiratory effort. No labored breathing. No stridor, retractions, or respiratory distress. Lungs clear to auscultation bilaterally. No wheezing, rales, or rhonchi. Abd: Soft, symmetric, nontender, nondistended, normal bowel sounds. No masses or organomegaly. No rebound or guarding. Back: Normal to inspection. No deformity or external signs of trauma. Ext: Warm, well-perfused. No cyanosis, clubbing, or edema. No bruising, swelling or deformity. Motor function is normal with full strength bilaterally to upper and lower extremities. Normal range of motion without bony tenderness. Gait is smooth and steady. Skin: Warm, dry, normal color for ethnicity. No rashes or diaphoresis. Nailbeds pink with no cyanosis or clubbing. Neuro: Awake, alert, GCS 15, speech clear, cranial nerves II-XII grossly intact, normal bulk, tone and strength in all extremities, normal sensation x4 without focal deficits. Memory is normal and though process is intact. No gait abnormalities appreciated. Vascular: Peripheral pulses symmetric, normal cap refill. Psych: Pleasant and appropriate. ED Course as of 09/15/24 1836 Sat Sep 15, 2024 1311 Met with patient to perform history and physical exam, outline emergency department work up and initial treatment, as well as explain expected time frame. 1426 CBC reveals leukocytosis (WBC 16.2 with 12.82 neutrophils), consistent with previous. Remainder of labs are pending. 1436 CMP reveals elevated anion gap (18), consistent with previous. Lipase and lactate are normal. Awaiting urine sample. 1439 The patient was reassessed and updated on results and plan. She reports feeling a little panicky, however pain and nausea are improving. 1542 The patient was reassessed and requests discharge. She refuses to provide urine for test. She states that she does not feel she is and had testing last week (negative on 09/06/24 at [facility], per EMR review). She is aware that we cannot rule out related symptoms, including ectopic , without the test. She voiced understanding and continues to refuse testing. Her LMP was 08/30. Final Diagnoses: as of 09/15/241835 Cyclical Vomiting Syndrome Unrelated To Migraine Issue Renewal Prescription MEDICAL DECISION MAKING: Jazmin Carroll is a 18 y.o. female with the following comorbidities affecting her care: Cyclic vomiting syndrome, recurrent abdominal pain, anorexia nervosa, marijuana use, anxiety, GERD, among other.No abdominal surgical history. She is here for evaluation of diffuse abdominal cramping with nauseaand vomiting since 4:00 a.m.. The patient reports symptoms are relieved with hot showers. No other aggravating or alleviating factors. She has tried ODT Zofran without improvement, however states that she has not picke up the Compazine suppository prescription that was previously prescribed. She states that she last use marijuana over a week ago. She does drink alcohol occasionally, however states she still has not had any alcohol in more than a week. She denies any fevers, chills, sweats, headache, cough/URI symptoms, chest pain, shortness of breath, diarrhea, dysuria, urinary frequency/urgency, hematuria, vaginal bleeding/discharge/itching/odors, flank pain, change in taste/smell, rash orskin changes, change in bladder habits or other concerning symptoms. The patient is sexually activeand not currently on control. LMP 08/30/24. She has been eating and drinking normally. Per EMR review, the patient has had multiple ER visits in the past 2 weeks for the same symptoms. She was initially evaluated here on 09/06/2024 for cyclic vomiting. Labs were performed. Abnormal labsrevealed leukocytosis (WBC 14.2 with 12.56 neutrophils, elevated anion gap (16). Labs were otherwise unremarkable. She was given IV fluids, Benadryl and droperidol, as well as Toradol and capsaicin cream. She was discharged with Zofran and Compazine. She was also instructed to shrimp picker capsaicin cream. She was advised to stop smoking or ingesting cannabis. She was then evaluated at [facility] on 09/11 4 cannabis induced hyperemesis. She was given Zofran, Benadryl and morphine by EMS and out to their ER. She was discharged home with Zofran. She was advised to avoid marijuana use. She was evaluated in the ER at [facility] on 09/13/2024 for abdominal pain and nausea. Abnormal labs revealedleukocytosis (WBC 15.3) and elevated anion gap (18). She was given a GI cocktail and Zofran. I am unable to see documentation from this visit as it does not appear to be entered in the EMR yet. She was here yesterday for the same symptoms. She reported being evaluated in [place] [facility] the night before, as well. Await abnormal labs revealed leukocytosis (WBC 18.1 with 14.46 neutrophils) and elevated anion gap (21). IV fluids, Droperidol and Benadryl were given. No discharge medications were presc ribed. On ER arrival, the patient is well appearing, nontoxic with normal vitals. Exam reveals mild diffuse, nonfocal abdominal tenderness without peritoneal signs. Differential diagnoses: Bowel obstruction, viral infection, pancreatitis, cholecystitis, alcohol use, NSAID use, PUD, adhesions, hernia, gastroparesis, appendicitis, , among others. ED course/interventions: Met with patient upon ER arrival. IV was started by RN. IV fluid bolus wasordered. Droperidol and Benadryl were ordered for symptom relief. Labs were ordered, including CBC,CMP, lipase, lactate, UA and UPT. Abnormal labs revealed leukocytosis (WBC 16.2 with 12.82 neutrophils) and elevated anion gap (18), both consistent with previous. Lipase and lactate are normal. The patient refused to provide a urine sample and requested discharge home after symptom improvement. She is aware that we cannot rule out related symptoms, including ectopic , without the test. She states that she does not feel she is and had testing lastweek (negative on 09/06/24 at [facility], per EMR review). Considered abdominal CT, however the patient's abdominal exam is benign with no peritoneal signs, so abdominal CT was not felt warranted at this time. - Pain isn't out of proportion to exam and intestinal ischemia is felt less likely. - There is no right lower quadrant tenderness or peritoneal signs, so appendicitis is felt unlikely. - The patient has had no fevers or diarrhea send diverticulitis or colitis are felt unlikely. - The patient has no prior history of abdominal surgeries and bowel obstruction is felt unlikely. - Given low index of suspicion for intestinal ischemia, appendicitis, diverticulitis, colitis or bowel obstruction no CT ABD was done. - The patient has no lower quadrant abdominal pain or tenderness on palpation, so ovarian cyst or torsion is felt less likely. - The patient has no urinary symptoms to suggest UTI/pyelonephritis or kidney stones, however patient refused to provide a urine sample. - Can not rule out ectopic as the patient refused to give a urine sample, however urine test and 09/06/2024 was negative at [facility], per EMR review. Impression/plan: Based on history, exam and diagnostics, symptoms are most consistent with likely cyclic vomiting. Admission/obs considered but not felt warranted at this time. Using shared decision making, the patient is felt appropriate for discharge home and she will be discharged home with conservative management, refill of Zofran, she was instructed to shrimp picker the Compazine suppositories at the pharmacy for added nausea relief, capsaicin cream as previously advised, abstain from cannabis use, maintain adequate hydration, and close follow up with primary care for reassessment. The evaluation, plan and return precautions were reviewed with patient and significant other and they were understanding and in agreement with plan. Patient questions were answered. -- History was obtained from: The patient and EMR review. -- Nursing documentation and prior inpatient and outpatient records were reviewed in the electronicmedical record to facilitate decision making regarding patient care. -- I personally reviewed by visualization, independent interpretation, and discussed with the patient the results of labs as noted above. -- Consultation: None -- Prescription management: Zofran refill Social Drivers of Health Transportation Needs: Low Risk (08/04/2023) Received from [facility] Transportation Needs Within the past 12 months, has lack of transportation kept you from medical appointments, getting your medicines, non-medical meetings or appointments, work, or from getting things that you need?: No Housing Stability: Low Risk (08/04/2023) Received from [facility] Housing Stability Do you have housing? (Housing is defined as stable permanent housing and does not include staying outside in a car, in a tent, in an abandoned building, in an overnight fdc, or couch-surfing.): Yes Are you worried about losing your housing?: No Recent Concern: Housing Stability - High Risk (07/06/2023) Received from [facility] Housing Stability Vital Sign In the last 12 months, was there a time when you were not able to pay the mortgage or rent on time?: No In the past 12 months, how many times have you moved where you were living?: 2 At any time in the past 12 months, were you homeless or living in a fdc (including now)?: No Food Insecurity: Low Risk (08/04/2023) Received from [facility] Food Insecurity Within the past 12 months, did you worry that your food would run out before you got money to buy more?: No Within the past 12 months, did the food you bought just not last and you didn???t have money to getmore?: No Recent Concern: Food Insecurity - Food Insecurity Present (07/06/2023) Received from [facility] Hunger Vital Sign Within the past 12 months, you worried that your food would run out before you got the money to buymore.: Never true Within the past 12 months, the food you bought just didn't last and you didn't have money to get more.: Sometimes true Utilities: Not on file Intimate Partner Violence: Low Risk (08/04/2023) Received from [facility] Safety Do you feel physically and emotionally safe where you currently live?: Yes Within the past 12 months, have you been hit, slapped, kicked or otherwise physically hurt by someone?: No Within the past 12 months, have you been humiliated or emotionally abused in other ways by your partner or ex-partner?: No PROBLEMS ADDRESSED THIS VISIT: 1. Cyclical Vomiting Syndrome Unrelated To Migraine 2. Issue Renewal Prescription Shani Fink P.A.-C., P.Devendra, M.S. 09/15/24 1836 documented in this encounter Plan of Treatment Scheduled Orders Name Type Priority Associated Diagnoses Orde r Schedule Urinalysis with Microscopic if Indicated: Urine, Midstream Lab STAT STAT for 1 Occu rrences starting 09/15/2024 until 09/15/2024 Test, POCT, Urine (Lab) Lab STAT STAT for 1 Occur rences starting 09/15/2024 until 09/15/2024 documented as of this encounter Procedures Procedure Name Priority Date/Time Associated Diagnosis Comments CBC WITH DIFFERENTIAL, B STAT 09/15/2024 2:11 PM CDT LIPASE, S/P STAT 09/15/2024 2:11 PM CDT LACTATE, B/P STAT 09/15/2024 2:11 PM CDT COMPREHENSIVE METABOLIC PANEL, S/P STAT 09/15/2024 2:11 PM CDT documented in this encounter Results * Lipase (09/15/2024 2:11 PM CDT) Lipase, P 18 13 - 60 U/L 09/15/2024 2: 32 PM CDT CNFL Blood (Blood, Venous) 09/15/2024 2:11 PM CDT 09/15/2024 2:13 PM CDT us Shani Fink P.A.-C., P.A., M.S. LAB BLOOD [place] [address], [facility] [place] [address] * Lactate (09/15/2024 2:11 PM CDT) Lactate, P 1.0 0.5 - 2.2 mmol/L 09/15/2024 2:30 PM CDT CNFL Blood (Blood, Venous) 09/15/2024 2:11 PM CDT 09/15/2024 2:13 PM CDT Shani Fink P.A.-C., P.A., M.S. LAB BLOOD NON [place] DD[place] [address], [place] [address] * (ABNORMAL) Comprehensive Metabolic Panel (09/15/2024 2:11 PM CDT) Potassium, P 3.7 3.6 - 5.2 mmol/L 09/15/2024 2:32 PM CDT CNFL Sodium, P 135 135 - 145 mmol/L 09/15/2024 2:32 PM CDT CNFL Chloride, P 98 98 - 107 mmol/L 09/15/2024 2:32 PM CDT CNFL Bicarbonate, P 19(L) 22 - 29 mmol/L 09/15/2024 2:32 PM CDT CNFL Anion Gap, P 18(H) 7 - 15 09/15/2024 2:32 PM CDT CNFL BUN (Blood Urea Nitrogen), P 13 6 - 21 mg/dL 09/15/2024 2:32 PM CDT CNFL Creatinine 0.79 0.59 - 1.04 mg/dL 09/15/2024 2:32 PM CDT CNFL Estimated GFR (eGFR) >90 >=60 mL/min/BS A 09/15/2024 2:32 PM CDT CNFL Comment: Estimated GFR calculated using the 2020 CKD_EPI creatinine equation. Calcium, Total, P 10.1(H) 8.6 - 10.0 mg/dL 09/15/2024 2:32 PM CDT CNFL Glucose, P 109 70 - 140 mg/dL 09/15/2024 2:32 PM CDT CNFL Protein, Total, P 7.8 6.3 - 7.9 g/dL 09/15/2024 2:32 PM CDT CNFL Albumin, P 5.0 3.5 - 5.0 g/dL 09/15/2024 2:32 PM CDT CNFL Aspartate Aminotransferase (AST), P 18 8 - 43 U/L 09/15/2024 2:32 PM CDT CNFL Alkaline Phosphatase, P 64 35 - 104 U/L 09/15/2024 2:32 PM CDT CNFL Alanine Aminotransferase (ALT), P 18 7 - 45 U/L 09/15/2024 2:32 PM CDT CNFL Bilirubin, Total, P 0.7 0.0 - 1.2 mg/dL 09/15/2024 2:32 PM CDT CNFL Blood (Blood, Venous) 09/15/2024 2:11 PM CDT 09/15/2024 2:13 PM CDT us Shani Fink P.A.-C., P.A., M.S. LAB BLOOD ADD-O N Final Result [facility] [address] [place] [address], [facility] in [address] [address] * (ABNORMAL) CBC with Differential, Blood (09/15/2024 2:11 PM CDT) Hemoglobin 13.2 11.6 - 15.0 g/dL 09/15/2024 2:16 PM CDT CNFL Hematocrit 37.0 35.5 - 44.9 % 09/15/2024 2:16 PM CDT CNFL Erythrocytes 4.34 3.92 - 5.13 x10(12)/L 09/15/2024 2:16 PM CDT CNFL MCV 85.3 78.2 - 97.9 fL 09/15/2024 2:16 PM CDT CNFL RBC Distrib Width 12.7 12.2 - 16.1 % 09/15/2024 2:16 PM CDT CNFL Platelet Count 280 157 - 371 x10(9)/L 09/15/2024 2:16 PM CDT CNFL Leukocytes 16.2(H) 3.4 - 9.6 x10(9)/L 09/15/2024 2:16 PM CDT CNFL Neutrophils 12.82(H) 1.56 - 6.45 x10(9)/L 09/15/2024 2:16 PM CDT CNFL Lymphocytes 2.24 0.95 - 3.07 x10(9)/L 09/15/2024 2:16 PM CDT CNFL Monocytes 1.14(H) 0.26 - 0.81 x10(9)/L 09/15/2024 2:16 PM CDT CNFL Eosinophils <0.04 0.03 - 0.48 x10(9)/L 09/15/2024 2:16 PM CDT CNFL Basophils 0.04 0.01 - 0.08 x10(9)/L 09/15/2024 2:16 PM CDT CNFL Blood (Blood, Venous) 09/15/2024 2:11 PM CDT 09/15/2024 2:13 PM CDT us Shani Fink P.A.-C., P.A., M.S. LAB BLOOD ADD-O N Final Result [facility] [address] [place] [id number], [facility] CN[facility] [place] [address] documented in this encounter Visit Diagnoses Diagnosis Cyclical Vomiting Syndrome Unrelated To Migraine- Primary Issue Renewal Prescription documented in this encounter Administered Medications Inactive Administered Medications - up to 3 most recent administrations Medication Order MAR Action Action Date Dose Rate Site diphenhydrAMINE injection 50 mg (BenadryL) 50 mg, intravenous, Once, On 09/15/24 at 1320, For 1 dose Given 09/15/2024 2:14 PM CDT 50 mg droPERidoL injection 2.5 mg (Inapsine) 2.5 mg, intravenous, Once, On 09/15/24 at 1320, For 1 dose Given 09/15/2024 2:14 PM CDT 2.5 mg NaCl 0.9 % bolus 1,000 mL 1,000 mL, intravenous, at 1,000 mL/hr, Administer over 1 Hours, Once, On 09/15/24 at 1320, For 1 dose New Bag 09/15/2024 2:14 PM CDT 1,000 mL 100 0 mL/hr sodium chloride 0.9 % injection 10 mL 10 mL, intravenous, As needed, line care, Starting on 09/15/24 at 1317, Peripheral Intravenous Catheter and Rapid Infusion Catheter, prior to blood sampling, post blood transfusion or post blood sampling sodium chloride 0.9 % injection 3 mL 3 mL, intravenous, As needed, line care, Starting on 09/15/24 at 1317, Prior to and following infusion and between multiple consecutive infusions: sodium chloride 0.9 % injection sodium chloride 0.9 % injection 3 mL 3 mL, intravenous, Every 12 hours scheduled, First dose on 09/15/24 at 2100, Peripheral Intravenous Catheter and Rapid Infusion Catheter, when no infusion to maintain patency documented in this encounter Active and Recently Administered Medications Times are shown in CDT. Scheduled Medication Order 09/13/2024 09/14/2024 09/15/2024 diphenhydrAMINE injection 50 mg (BenadryL) (COMPLETED) 50 mg, intravenous, Once, On 09/15/24 at 1320, For 1 dose 1414 (Given - Provid er: Candido DykesN.) droPERidoL injection 2.5 mg (Inapsine) (COMPLETED) 2.5 mg, intravenous, Once, On 09/15/24 at 1320, For 1 dose 1414 (Given - Provid er: Eduardoyoly Flores R.N.) NaCl 0.9 % bolus 1,000 mL (COMPLETED) 1,000 mL, intravenous, at 1,000 mL/hr, Administer over 1 Hours, Once, On 09/15/24 at 1320, For 1 dose 1414 (New Bag - Prov ider: Eduardo Flores R.N.)1557 (Stopped - Provider: Eduardo Flores R.N.) sodium chloride 0.9 % injection 3 mL 3 mL, intravenous, Every 12 hours scheduled, First dose on 09/15/24 at 2100, Peripheral Intravenous Catheter and Rapid Infusion Catheter, when no infusion to maintain patency PRN Medication Order 09/13/2024 09/14/2024 09/15/2024 sodium chloride 0.9 % injection 10 mL 10 mL, intravenous, As needed, line care, Starting on 09/15/24 at 1317, Peripheral Intravenous Catheter and Rapid Infusion Catheter, prior to blood sampling, post blood transfusion or post blood sampling sodium chloride 0.9 % injection 3 mL 3 mL, intravenous, As needed, line care, Starting on 09/15/24 at 1317, Prior to and following infusion and between multiple consecutive infusions: sodium chloride 0.9 % injection documented in this encounter Care Teams Music Producer Relationship Specialty Start Date End Date None Reported, Pcp PCP - General Family Medicine 09/06/24 documented as of this encounter
--- OUTSIDE RECORDS SUMMARY | 2024-09-16 08:58 | XMS_ITS | Clinical Summary ---
Author Organization [facility] er Address [address] [place] [address] Care Team Providers Care Meter Supervisor Name Role Phone Elsewhere, Pcp Primary Care Provider Unavailabl e Allergies No known active allergies Medications Ibuprofen 200 MG capsule Take 600 mg by mouth every 6 hours as needed Active melatonin 3 MG tablet Take 1 tablet (3 mg total) by mouth Active sertraline (Zoloft) 50 MG tabletIndicatio ns:Generalized anxiety disorder,Curren t moderate episode of major depressive disorder, unspecified whether recurrent (HCC) Take 1 tablet (50 mg total) by mouth 1 (one) time each day 30 tablet 4 Active Additional Information Patient not taking.Reported on 09/13/2024 sertraline (Zoloft) 100 MG tabletIndicatio ns:Moderate episode of recurrent major depressive disorder (HCC),Generaliz ed anxiety disorder Take 1 tablet (100 mg total) by mouth 1 (one) time each day 90 tablet 4 Active Additional Information Patient not taking.Reported on 09/13/2024 prochlorperazin e (COMPAZINE) 25 MG suppository Insert 1 suppository (25 mg total) into the rectum every 12 hours as needed 5 Active ondansetron ODT (ZOFRAN-ODT) 4 MG dispersible tablet Take 1 tablet (4 mg total) by mouth 5 09/15/19 Active Problems Problem Noted Date Diagnosed Date [...] Description 09/13/2024 2:40 PM CDT Office Visit [place] [address] [facility] [address] [place] [address] Hansel Holden MD Moderate episode of recurrent [...] often do you attend chur ch or taoist services? More than 4 times per year 07/06/2023 Do you belong to any clubs o r organizations such as yarsani groups, unions, fraternal or athletic groups, or [...] Date Recorded PHQ-9 Total Score 18 07/06/2023 [facility] - Occupational Stress [...] any time in the past 12 m [facility], were you homeless or living in a alf (including now)? No 07/06/2023 Comments Unknown Sex [...] history exists Asthma: Control Test Discontinued Insurance [facility] Care Teams Meter Supervisor Relationship Specialty Start Date End Date Elsewhere, Pcp [address] [facility] [place] [address] PCP - General Gem Stone Cutter 06/20/24
--- OUTSIDE RECORDS SUMMARY | 2024-09-16 08:58 | XMS_ITS | Clinical Summary ---
Author Organization [facility] Address [address] [place] [address] Care Team Providers Care Coke Wheeler Name Role Phone None Reported, Pcp Primary Care Provider Unavail able Source Comments Patient records contain information from all sites at [facility]. For routine questions regarding patient records, call [phone] during business hours, M-F 8:00 AM - 5:00 PM Central Time. Record requests for emergency care only can be directed to [phone] at any time.[facility] Allergies No known active allergies Medications OLANZapine [...] (twelve) hours. 10 tablet 09/07/19 25 Active ondansetron ODT (Zofran-ODT) 4 mg disintegrating tablet Dissolve 1 tablet (4 mg total) in the mouth every 8 (eight) hours for 10 days. 20 tablet 09/16/19 25 025 Active Active Problems Problem Noted Date Diagnosed [...] Encounters Date Type Department Care Team Description 09/15/2024 12:35 PM CDT - 09/15/2024 4:05 PM CDT Emergency [facility] [address] [place] [phone] Shani Fink P.A.-C., P.A., M.S. Cyclical Vomiting Syndrome Unrelated To Migraine (Primary Dx); Issue Renewal Prescription Discharge Disposition: Home or Self Care 09/14/2024 4:42 PM CDT - 09/14/2024 6:13 PM CDT Emergency [facility] [address] [place] [phone] Mikal Loyola P.A.-C., P.A. Vomiting Persistent (Primary Dx) Discharge Disposition: Home or Self Care 09/06/2024 7:49 PM CDT - 09/06/2024 9:19 PM CDT [facility] [address] [place] [phone] Peña Pal APRN, C.N.P., D.N.P. Cyclical Vomiting [...] Well Child Check-Up 09/12/2024 Well Child Check-Up ([facility]) 09/12/2024 Influenza Vaccine (#1) 2024 , 03/26/2019, 11/03/2011 Glucose Test for Med Monitoring 09/15/2025 09/15/2024, 09/14/2024, 09/11/2024, Additional history exists DTaP,Tdap,and Td Vaccines (7 [...] Visit (if High Risk Menstruating Female) Completed 09/15/2024, 09/14/2024, 09/06/2024, Additional history exists Procedures Procedure Name Priority Date/Time Associated Diagnosis Comments LIPASE, S/P STAT 09/15/2024 2:11 PM CDT LACTATE, B/P STAT 09/15/2024 2:11 PM CDT COMPREHENSIVE METABOLIC PANEL, S/P STAT 09/15/2024 2:11 PM CDT CBC WITH DIFFERENTIAL, B STAT 09/15/2024 2:11 PM CDT BASIC METABOLIC PANEL, S/P Routine 09/14/2024 5:24 PM CDT CBC WITH DIFFERENTIAL, B STAT 09/14/2024 5:07 PM CDT MAGNESIUM, S STAT 09/06/2024 8:03 PM CDT CBC WITH DIFFERENTIAL, B STAT 09/06/2024 8:03 PM CDT BASIC METABOLIC PANEL, S/P STAT 09/06/2024 8:03 PM CDT from Last 3 Months Results * (ABNORMAL) CBC with Differential, Blood (09/15/2024 2:11 PM CDT) Only the most recent of3 resultswithin the time period is included. Hemoglobin 13.2 11.6 - 15.0 g/dL 09/15/2024 [...] M.S. LAB BLOOD ADD-O N Final Result [facility] [address] [place] [address], [facility] [place] [address] * Lipase (09/15/2024 2:11 PM CDT) Lipase, P 18 13 - 60 U/L 09/15/2024 2: 32 PM CDT CNFL Blood (Blood, Venous) 09/15/2024 2:11 PM CDT 09/15/2024 2:13 PM CDT us Shani Fink P.A.-C., P.A., M.S. LAB BLOOD ADD-O N Final Result [facility] [address] [place] [address], [facility] [address] [address] * Lactate (09/15/2024 2:11 PM CDT) Lactate, P 1.0 0.5 - 2.2 mmol/L 09/15/2024 2:30 PM CDT CNFL Blood (Blood, Venous) 09/15/2024 2:11 PM CDT 09/15/2024 2:13 PM CDT Shani Fink P.A.-C., P.A., M.S. LAB BLOOD NON A DD-ON Final Result Performing Organization Address City/[facility] Co de Phone Number [address] [address], [facility] in [address] [address] * (ABNORMAL) Comprehensive Metabolic Panel (09/15/2024 2:11 [...] M.S. LAB BLOOD ADD-O N Final Result Performing Organization Address City/State/[facility] Co de Phone Number [facility] [address] [place] [address], [facility] CNFL [facility] [place] [address] * (ABNORMAL) Basic Metabolic Panel (09/14/2024 5:24 PM CDT) Only the most recent of2 resultswithin the time period is included. Potassium, P 3.7 3.6 - 5.2 mmol/L [...] 5:24 PM CDT 09/14/2024 5:26 PM CDT us Mikal Loyola P.A.-C., P.A. LAB BLOOD ADD-ON F inal Result [facility] [address] [place] [address], [facility] CNFL [facility] [place] [address] * Magnesium (09/06/2024 8:03 PM CDT) Magnesium, P 2.1 1.7 - 2.3 mg/dL 09/06/2024 8:23 PM CDT CNFL Blood (Blood, Venous) 09/06/2024 8:03 PM CDT 09/06/2024 8:05 PM CDT us Peña Pal APRN, C.N.P., D.N.P. LAB BLOOD AD D-ON Final Result [facility] [address] [address], [place] CNFL [facility] [place] [address] [facility] [address] [place] [address] from Last 3 Months Insurance [facility] Care Teams Coke Wheeler Relationship Specialty Start Date End Date None Reported, Pcp PCP - General Family Medicine 09/06/24
--- OUTSIDE RECORDS SUMMARY | 2024-09-16 08:58 | XMS_ITS | Clinical Summary ---
Author Organization [facility] Address [address] [place] [address]. [place] [address] Care Team Providers Care Cement Truck Driver Name Role Phone Reynaldo Moya MD Unavailable + Ilya Muñoz PA-C Unavailable No Ref-Primary, Physician Primary Care Provider Allergies [...] as needed for nausea. 10 tablet 09/11/2024 09/15/19 Active Problems Problem Noted Date Diagnosed Date Hypokalemia 10/27/2022 Recurrent abdominal pain 10/27/2022 Marijuana use 10/27/2022 Suicidal ideation 03/27/2019 Suicide attempt by acetamino phen overdose, initial encounter 03/25/2019 Overdose of salicylate, inte ntional self-harm, initial encounter 03/23/2019 UTI (urinary tract infection) 08/27/2007 Encounters Date Type Department Care Team Description 09/11/2024 9:20 AM CDT - 09/11/2024 12:21 PM CDT Emergency [facility] Emergency Dept [address] [place] [address] Sharan Pal PA-C Cannabis hyperemesis syndrome concurrent [...] Date Recorded Do you have housing? (Jeff g is defined as stable permanent housing and does not include staying outside in a car, in a tent, in an abandoned building, in an overnight detention, or couch-surfing.) Yes 08/04/2023 Are you worried [...] on file Legal Sex Female 4:34 AM CARDIAC CATH TECH Gender Identity Not on file Sexual Orientation [...] CHLAMYDIA TRACHOMATIS PCR Routine 03/29/2019 2:52 PM CARDIAC CATH TECH from Last 3 Months or Most Recently Relevant to Health Maintenance Results * EKG 12-lead, tracing only (09/11/2024 9:43 AM CDT) Systolic Blood Pressure mmHg RADIOLOGY RESULTS Diastolic Blood Pressure mmHg RADIOLOGY RESULTS Ventricular Rate 57 BPM RAD IOLOGY RESULTS Atrial Rate 57 BPM RADIOLOG Y RESULTS CA Interval 144 ms RADIOLOG Y RESULTS QRS Duration 86 ms RADIOLO GY RESULTS QT 432 ms RADIOLOGY RESULTS QTc 420 ms RADIOLOGY RESULTS P [place] degrees RADIOLOGY RESULTS R AXIS 80 degrees RADIOLOGY RESULTS T [place] 57 degrees RADIOLOGY RESULTS Interpretation ECG Sinus bradycardia with sinus arrhythmia Otherwise normal ECG When compared with ECG of 26-Oct-2022 22:28, No significant change was found Confirmed by - EMERGENCY ROOM, PHYSICIAN ([id number]), editorial assistant Joao Galeano ([id number]) on 09/11/2024 11:53:15 AM RADIOLOGY RESULTS 09/11/2024 9:43 AM CDT 09/11/2024 11:53 AM CDT Sharan Pal PA-C ECG ORDERABLES Edited Result - Final Performing Organization Address [facility]/ZIP Co de Phone Number RADIOLOGY RESULTS * Extra Purple Top Tube (09/11/2024 9:28 AM CDT) Hold Specimen [facility] 09/11/2024 10:31 AM CDT [facility] Blood BLOOD SPECIMEN / Unknown Venipuncture / Unknown 09/11/2024 9:28 AM CDT 09/11/2024 9:31 AM CDT Sharan BRICE-C LAB - BLOOD ORDERABLES Final Re sult Performing Organization Address [facility] de Phone Number [facility] [address] Lab (1st floor, no room number) [address] * Extra Green Top ([place] Heparin) Tube (09/11/2024 9:28 AM CDT) Hold Specimen [facility] 09/11/2024 10:31 AM CDT [facility] Blood BLOOD SPECIMEN / Unknown Venipuncture / Unknown 09/11/2024 9:28 AM CDT 09/11/2024 9:31 AM CDT Sharan Pal PA-C LAB - BLOOD ORDERABLES Final Re sult Performing Organization Address [facility]/ZIP Co de Phone Number [facility] [address] Lab (1st floor, no room number) [address] * Extra Red Top Tube (09/11/2024 9:28 AM CDT) Hold Specimen [facility] 09/11/2024 10:31 AM CDT [facility] Blood BLOOD SPECIMEN / Unknown Venipuncture / Unknown 09/11/2024 9:28 AM CDT 09/11/2024 9:31 AM CDT Sharan BRICE-C LAB - BLOOD ORDERABLES Final Re sult LABORATORY [facility] [address] Lab (1st floor, no room number) [address] * Extra Blue Top Tube (09/11/2024 9:28 AM CDT) Hold Specimen [facility] 09/11/2024 10:31 AM CDT LABORATORY Blood BLOOD SPECIMEN / Unknown Venipuncture / Unknown 09/11/2024 9:28 AM CDT 09/11/2024 9:31 AM CDT Sharan BRICE-C LAB - BLOOD ORDERABLES Final Re sult Performing Organization Address [facility]/ZIP Co de Phone Number [facility] [address] Lab (1st floor, no room number) [address] * (ABNORMAL) CBC with platelets and [...] LAB - BLOOD ORDERABLES Final Re sult [facility] [address] Lab (1st floor, no room number) [place] [address] * Troponin T, High [...] ORDERABLES Final Re sult Performing Organization Address City/[facility]/ZIP Co de Phone Number [facility] [address] Lab (1st floor, no room number) [place] [address] * Lipase (09/11/2024 9:28 AM CDT) Lipase 14 13 - 60 U/L 09/11/2024 9:59 AM CDT LABORATORY Blood BLOOD SPECIMEN / Unknown Venipuncture / Unknown 09/11/2024 9:28 AM CDT 09/11/2024 9:31 AM CDT Sharan BRICE-C LAB - BLOOD ORDERABLES Final Re sult [facility] LABORATORY [facility] [address] Lab (1st floor, no room number) [place] [address], [facility] * (ABNORMAL) Comprehensive metabolic panel (09/11/2024 9:28 [...] 9:59 AM CDT [facility] Comment:eGFR calculated usin 2020 CKD-EPI equation. [...] - BLOOD ORDERABLES Final Re sult LABORATORY [facility] [address] [facility] Lab (1st floor, no room number) [place] [address] * Chlamydia trachomatis PCR (03/29/2019 2:52 PM CARDIAC CATH TECH) Specimen Description Urine 03/29/2019 3:31 PM CARDIAC CATH TECH [facility] Chlamydia Trachomatis PCR Negative NEG^Negat garima 03/30/2019 1:20 PM CARDIAC CATH TECH [facility] Comment: Negative for C. trachomatis rRNA by mosaic technician mediated amplification. A negative result by mosaic technician mediated amplification does not preclude the presence of C. trachomatis infection because results are dependent on proper and adequate collection, absence of inhibitors, and sufficient rRNA to be detected. Urine specimen (specimen) 03/29/2019 2:52 PM CARDIAC CATH TECH 03/29/2019 3:30 PM CARDIAC CATH TECH us Kari Chun PA-C LAB - MICRO GENERAL ORDERABLE S Final Result Performing Organization Address [facility] Co de Phone Number [facility] [address] [place], [place] [id number] [place] [address] from Last 3 Months or Most Recently Relevant to Health Maintenance Insurance [employer] [facility] Advance Directives For more information, please contact: [phone] * Full Code (Latest Code Status on [...] with patie nt/legal decision maker Care Teams Cement Truck Driver Relationship Specialty Start Date End Date Reynaldo Moya MD [facility] [address] [place] [address] PCP - Mental Health/Behavioral Medicine Psychiatry 03/28/19 No Ref-Primary, Physician PCP - General 09/11/24 Ilya Muñoz PA-C [address] [place] [address] KIRK DIALLO [address] Assigned PCP 08/14/23
--- OUTSIDE RECORDS SUMMARY | 2024-09-16 08:58 | XMS_ITS | Clinical Summary ---
Author Organization [facility] Address [address] [place] [address] Care Team Providers Care Membership Advisor Name Role Phone [facility] Care Provider [phone] Allergies No known active allergies Medications albuterol [...] on file Legal Sex Female 10:35 AM REHABILITATION ATTENDANT Gender Identity Not on file Sexual Orientation [...] patient's age to complete this topic Insurance dbTwang dbTwang Care Teams Membership Advisor Relationship Specialty Start Date End Date [address] [place] [address] PCP - General 07/23/23
--- OUTSIDE RECORDS SUMMARY | 2024-09-16 08:59 | XMS_ITS | Patient Health Record ---
Author Organization [facility] Address [address] [place] [address] Care Team Providers Care Outside Plant Technician Name Role Phone None, No PCP Primary Care Provider UnavailBo Valentine Unavailable [phone] HugoDarrinTeresita Unavailable [phone] Leticia Rider Unavailable [phone] Allergies No Known Allergies Results Component Value [...] 11/30/2023 Encounters Encounter Location Date Provider Diagnosis [address] [place] [id number] 12/02/2023 Leticia Rider [address] [id number] 12/02/2023 Leticia Rider Pre-operative laboratory examination Z01.812 and Encounter for IUD removal Z30.432 [facility] [address] [place] [address] 11/30/2023 Teresita Farb Procedure and treatment not carried out for other reasons Z53.8 and Presence of (intrauterine) contraceptive device Z97.5 [facility] [address] [facility] [address] [place], [place] [phone] 12/02/2023 Leticia Rider [facility] [address] [place], [place] [address] [place] [address] 12/01/2023 Kielenrique Edvinjulianrose [address] [place] [address] 11/30/2023 Teresita Farb Retained intrauterin e contraceptive [...] agreed with plan. Will send note to supervisor smoke control. Warm packs provided to pt for comfort. Advised nothing in vagina including tampon for current menses. Pt denied dizziness or nausea and was able to leave clinic without issue. 11/30/2023 Other Surgeon: Leticia Rider Diagnosis: retained IUD ICD-10: T83.39XA Procedure:Hyster oscopy possible D&C, IUD removal CPT: 86378, 44762 Special Equipment: Surgeon Notes: Location: [place] Hospitalization: outpatient Anesthesia: [facility] Allergies: Health [...] [place] Bill) [address] [address] [place] [address] [id number] Jazmin Carroll Self - patient is the insured [place] [employer] Medicaid (Ins. Bill) [address] [address] [place], [place] [id number] Jazmin Carroll Self - patient is the insured Medical (General) History Medical History History ICD Code depression asthma Surgical History Surgery Date(Month/Year) IUD removal under sedation 12/02/2023
--- OUTSIDE RECORDS SUMMARY | 2024-09-16 08:59 | XMS_ITS | Encounter Summary ---
Author Organization [facility] Address [facility] 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 Gender Identity Not on file Sexual Orientation Not on file documented as of this encounter Plan of Treatment Not on file documented as of this encounter Visit Diagnoses Not on filedocumented in this encounter Additional Health Concerns Assessment Noted Time PHQ-9 Depression Total Score: 22 024 6:58 AM CDT documented as of this encounter Care Teams Superintendent [employer] Relationship Specialty Start Date End Date Reynaldo Moya MD [facility] [address] [place] [address] PCP - Mental Health/Behavioral Medicine Psychiatry 03/28/19 No Ref-Primary, Physician PCP - General 09/11/24 Ilya Muñoz PA-C [address] [place] [address] KIRK DIALLO [id number] Assigned PCP 08/14/23 documented as of this encounter
--- OUTSIDE RECORDS SUMMARY | 2024-09-16 08:59 | XMS_ITS | Encounter Summary ---
Author Organization [facility] Address [address], [place] [address] Care Team Providers Care Brass Bobbin Winder Name Role Phone Belle Diaz PA-C Primary Care Provider + [phone] Encounter Details Date Type Department Care Team ([facility] st Contact Info) Description 09/13/2024 Results Follow-Up [facility] Obstetrics and Gynecology [address] [place] [address] Yasmine Caputo RN [address] [place], [place] [phone] Social History Tobacco Use Types Packs/Day Years [...] on filedocumented in this encounter Care Teams Brass Bobbin Winder Relationship Specialty Start Date End Date Belle Diaz PA-C [address] [place] [address] PCP - General Physician Accounting Administrative Assistant 08/15/21 documented as of this encounter
--- OUTSIDE RECORDS SUMMARY | 2024-09-16 08:59 | XMS_ITS | Clinical Summary ---
Author Organization [facility] Address [address] [place] [address] Care Team Providers Care White Metal Corrosion Proofer Name Role Phone Belle Diaz PA-C Primary Care Provider + [phone] Source Comments You are receiving this document as you are listed as the primary care provider,follow-up provider, or the patient has been referred to you for consultation.This is in compliance with the Medicare andOhio[facility] Hospitalcaid EHR Incentive Program,which states Providers who transition their patient to another setting of careor provider of care or refers their patient to another provider of care shouldprovide summary care record for each transition of care or referral. [facility] Allergies Active Allergy Reactions Criticality Noted Date [...] 10/01/2015 Assessment & Plan (02/28/2012 7:08 PM YOUNG ADULT LIBRARIAN): Rectal itching has been noted for a month. She has been living with her grand niece and started living with her aunt for one year. She was living in [place]. She notices that she itches all day, [...] 5:35 PM CDT [facility] [address] [place] [address] Discharge Disposition: Left Without Being Seen 09/13/2024 11:00 AM CDT Ancillary Procedure [facility] [address] [place] [address] Anjelica Davidson APRN, CNM Menorrhagia with regular cycle 09/13/2024 Results Follow-Up [facility] Obstetrics and Gynecology [address] [place] [address] Yasmine Caputo RN 09/06/2024 1:00 PM CDT Telemedicine [facility] [address] [place] [address] Anjelica Davidson, WEB APPLICATION DEV SPECIALIST, CNM Menorrhagia with regular cycle (Primary Dx) 08/27/2024 12:05 PM CDT Ancillary Procedure [facility] [address] Radiology [address] [place] [address] Zee Lam MD Constipation, unspecified constipation type 08/27/2024 12:00 PM CDT Office Visit [facility] [address] [place] [address] Zee Lam MD Constipation, unspecified constipation type from Last 3 Months Immunizations Immunization Administration Dates Next Due 9vHPV (Gardasil 9) 09/05/2019,10/04/2017 DTaP 05/08/2008, 8,06/22/2004,2004,2003 Flu Vac Preserv Free (3+yrs) 11/03/2011 HepA Ped/Adol (1-18 yrs) 05/08/2008,09/05/2007 HepB Ped/Adol (0-18 yrs) 06/22/2004,03/26/2004,1 2003 Hib, Unspecified Formulation 06/22/2004,03/26/19 05,2003 IPV (Polio) 05/08/2008, 5,03/26/2004,2003 Influenza IIV4 (Quadrivalent ) 0.5mL (26531) 11/12/2022 MCV4 Menveo 2m.+ (two vial) 08/28/2021, [...] DIFF STAT 09/13/2024 4:20 PM CDT OBGYN PELVIC/OUTSIDE MEDICAL SALES REPRESENTATIVE ULTRASOUND Routine 09/13/2024 11:13 AM CDT Menorrhagia [...] - 145 mmol/L 09/13/2024 4:54 PM CDT [facility] Potassium 3.8 3.5 - 5.1 mmol/L 09/13/2024 4:54 PM CDT [facility] Comment:Specimen slightly he molyzed. Hemolysis may affect result. Chloride 110(H) 98 - 109 mmol/L 09/13/2024 4:54 PM CDT [facility] CO2 12(L) 20 - 29 mmol/L 09/13/2024 4:54 PM [facility] Anion Gap 18(H) 6 - 16 mmol/L 09/13/2024 4:54 PM [facility] Calcium 10.0 8.4 - 10.4 mg/dL 09/13/2024 4:54 PM [facility] BUN 10 7 - 26 mg/dL 09/13/2024 4:54 PM [facility] Creatinine 0.79 0.55 - 1.02 mg/dL 09/13/2024 4:54 PM [facility] Glucose 96 70 - 100 mg/dL 09/13/2024 4:54 PM [facility] Comment:The given reference range is for the fasting state. Non-fasting reference range for glucose is 70 - 180 mg/dL. GFR, Estimated >60 >60 mL/min/1.7 3m2 09/13/2024 4:54 PM [facility] Blood Venipuncture / Unknown 09/13/2024 4:20 PM CDT 09/13/2024 4:25 PM T us Peña Diaz MD LAB_1 [place] [address], [facility] * (ABNORMAL) Complete Blood Count-No Diff (09/13/2024 4:20 PM CDT) WBC 15.3(H) 3.5 - 10.5 x10(9)/L 09/13/2024 4:28 PM [facility] RBC 4.38 3.90 - 5.03 x10(12)/L 09/13/2024 4:28 PM [facility] Hemoglobin 13.1 12.0 - 15.5 g/dL 09/13/2024 4:28 PM [facility] HCT 37.2 34.9 - 44.5 % 09/13/2024 4:28 PM [facility] MCV 84.9 80.0 - 100.0 fL 09/13/2024 4:28 PM [facility] MCH 29.9 27.6 - 33.3 pg 09/13/2024 4:28 PM [facility] MCHC 35.2 31.5 - 35.2 g/dL 09/13/2024 4:28 PM CDT [facility] RDW 12.8 11.9 - 15.5 % 09/13/2024 4:28 PM [facility] Platelets 311 150 - 450 x10(9)/L 09/13/2024 4:28 PM CDT [facility] Automated NRBC 0 <=0 /100 WBC 09/13/2024 4:28 PM CDT [facility] Blood Venipuncture / Unknown 09/13/2024 4:20 PM CDT 09/13/2024 4:25 PM CDT us Peña Diaz MD LAB_1 Final R esult [id number] [place] [address] * OBGYN Pelvic/[employer] Cox[employer] Ultrasound (09/13/2024 11:13 AM CDT) Uterus AP Diameter (Height) 3.00 cm EXTERNAL RESULTS Uterus Longitudinal Diameter (Length) 6.90 cm EXTERNAL RESULTS Uterus Transverse Diameter (Width) 3.50 cm EXTERNAL RESULTS Uterus Volume 37.93 ml MAT MACHINE TENDER AL RESULTS Endometrium Thickness 5.20 mm EXTERNAL [...] from the original result was not included. OUTSIDE MEDICAL SALES REPRESENTATIVE Ultrasound Exam performed on: 09/13/2024 Referring provider: Anjelica Davidson APRN, CNM Referring clinic: [facility] MECHANICAL ENGINE[facility] Clinical indications: Menorrhagia with regular cycle LMP: 08-31-2024 Compressor Assembler(s) initials: KI The pelvic organs are imaged [...] Detected Not Detected 08/29/2021 3:28 PM CDT [facility] N. gonorrhoeae STD Not Detected Not Detected 08/29/2021 3:28 PM CDT [facility] Urine STD (Urine for STD) Non-blood Collection / Unknown 08/28/2021 5:42 PM CDT 08/28/2021 5:42 PM CDT Narrative [facility] - 08/29/2021 3:28 PM CDT Test performed by Aba Tutor Mediated Amplification (TMA). us Belle Diaz PA-C LAB_1 Final Result [facility] [address] [phone] from Last 3 Months or Most Recently Relevant to Health Maintenance Insurance [facility] BCBS PMAP [facility] Advance Directives * Full Code (Latest Code Status on File) Date Activated Date Inactivated Comments 11/24/2022 3:25 PM 12/08/2022 12:22 PM * Full Code Date Activated Date Inactivated Comments 04/19/2022 2:48 PM 04/27/2022 3:18 PM Care Teams White Metal Corrosion Proofer Relationship Specialty Start Date End Date Belle Diaz PA-C [id number] [address] [phone] PCP - General Physician Barrel Bridge Assembler 08/15/21
--- NOTE | 2024-09-16 09:20 | ED.NURSE ---
Special Education Aide was asking triage questions in order and Pt left during triage stating this technical proposal writer is mean.
== END 2024-09-16 09:45 | disposition home or self-care (01) ==
LOC: ED 09:38
PROVIDERS: Emergency Provider Family Medicine
DX: Z53.21 Procedure and treatment not carried out due to patient leaving prior to being seen by health care provider (principal)

== ENCOUNTER 2025-02-02 16:34 | Outpatient (CLI) | payer OTHER, BC, SELFPAY | END 2025-02-02 16:35 | disposition home or self-care (01) | LOC: AMB 02-07 11:33 | PROVIDERS: PCP Family Medicine; Visit Provider Family Medicine | DX: R55 Syncope and collapse (principal) | CPT/HCPCS: A0425; A0427 ==

== ENCOUNTER 2025-02-02 17:05 | Emergency (ER) | payer OTHER, BC, SELFPAY ==
--- OUTSIDE RECORDS SUMMARY | 2023-12-02 09:00 | XMS_ITS ---
Author Organization [facility] Address [address] [place] [address] Care Team Providers Care Sales Support Technician Name Role Phone None, No PCP Primary Care Provider UnavailBo Valentine Unavailable [phone] Leticia Rider Unavailable [phone] Encounters Encounter Location Date Provider Diagnosis [address] [id number] 12/02/2023 Leticia Rider Plan Of Treatment No Information Progress Notes * Jazmin JEANDOB:2005 (19 yo F)Acc No.[id number]:12/02/2023 Patient:?Jazmin JEAN :?DON IngramOB:2005???Age:18 Y???Sex: FemaleDate:4Phone:[phone]:[address] [place] [address]Amk:No PCP NoneCheck In:09:40 AM OFFICE WORKER Subjective: * Chief Complaints: * * Medical History: Objective: * Vitals: Assessment: Plan: * Treatment: * Images: Billing Information: * Visit Code: * Procedure Codes: * Electronic signature of Leticia Rider DO on 02/02/2025 at 05:07 PM CSTSign off status: Pending * Provider: Pancho Rider DO Date: Generated for Printing/Faxing/eTransmitting on:?02/02/2025 05:07 PM OFFICE WORKER
--- OUTSIDE RECORDS SUMMARY | 2023-12-02 09:00 | XMS_ITS ---
Author Organization [facility] Address [address] [place] [address] Care Team Providers Care Cutting Tool Sharpener Name Role Phone None, No PCP Primary Care Provider UnavailBo Valentine Unavailable [phone] Leticia Rider Unavailable [phone] Encounters Encounter Location Date Provider Diagnosis [address] [id number] 12/02/2023 Leticia Rider Plan Of Treatment No Information Progress Notes * Jazmin JEANDOB:2005 (19 yo F)Acc No.[id number]:12/02/2023 Patient:?Jazmin JEAN :?DON IngramOB:2005???Age:18 Y???Sex: FemaleDate:4Phone:[phone]:[address] [place] [address]Oip:No PCP NoneCheck In:09:39 AM YARN BLEACHING MACHINE OPERATOR Subjective: * Chief Complaints: * * Medical History: Objective: * Vitals: Assessment: Plan: * Treatment: * Images: Billing Information: * Visit Code: * Procedure Codes: * Electronic signature of Leticia Rider DO on 02/02/2025 at 05:07 PM CSTSign off status: Pending * Provider: Pancho Rider DO Date: Generated for Printing/Faxing/eTransmitting on:?02/02/2025 05:07 PM YARN BLEACHING MACHINE OPERATOR
--- OUTSIDE RECORDS SUMMARY | 2023-12-16 10:15 | XMS_ITS ---
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 Medications Medication SIG (Take, Route, Frequency, Duration) Notes Start Date End Date Status Ashwagandha ActiveAlbuterolActive Social History Tobacco Use: Social History Observation Description Date Details (start date - stop date) Never Smoker NA - NA Tobacco Control (Standard) Question Answer Notes Tobacco use: Nonsmoker Encounters Encounter Location Date Provider Diagnosis [address] [place] [id number] 12/16/2023 Leticia Rider Embedded foreign body Z18.9 Assessments Encounter Date Diagnosis (ICD Code) Assessment Notes Treatment Notes Treatment Clinical Notes Section Notes 12/16/2023 Embedded foreign body (ICD-10 - Z18.9) -successful removal of iUD with surgery 2 weeks ago. Condoms for contraception. Follow up PRN Patient states understanding and agreement with above plan. Plan Of Treatment Treatment Notes Assessment Notes Embedded foreign body -successful removal of iUD with surgery 2 weeks ago. Condoms for contraception. Follow up PRN Patient states understanding and agreement with above plan. Progress Notes * Jazmin JEANDOB:2005 (19 yo F)Acc No.[id number]:12/16/2023 Progress Note Patient: Jazmin GUERRIER :?DON IngramOB:2005???Age:18 Y???Sex: FemaleDate:12/16/2023hone:[phone]:[address] [place] [address], [facility]Rvr:No PCP None Subjective: * Chief Complaints: * 1 . Post op IUD removal under sedation. 2. 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 * Medical History: D epression, Asthma. * Electrical Cad Designer History: ???Date of Last Period:?irregular bleeding with IUD.? Control: ?None, .?Sexual Activity?Currently sexually active, male partner.?Sexually Tranmitted Disease (STD)?None.?Denies H/O Abnormal Pap Smear.?Denies H/O Colposcopy.? * OB History: ??? # 1:?02/2023 SAB.? * Surgical History: I UD removal under sedation 12/02/2023. * Hospitalization/Major Diagno stic Procedure: D enies Past Hospitalization. * Family History: N o Family History documented.. * Social History: ???Tobacco Use:?Tobacco Control (Standard)?Tobacco use:?Nonsmoker ???Drugs/Alcohol:?Caffeine?Intake:?1-2 cups per day ?Do you smoke marijuana?: Denies. ?Do you drink alcohol?: No. ???Miscellaneous:?Exercise: no. * Medications: T aking Albuterol , Taking Ashwagandha , Medication List reviewed and reconciled with the patient * Allergies: N .K.D.A. Objective: * Vitals: Assessment: * Assessment: 1.?Embedded foreign body - Z18.9 (Primary)??? Plan: * Treatment: Notes: -successful removal of iUD with surgery 2 weeks ago. Condoms for contraception. Follow up PRN Patient states understanding and agreement with above plan.?? * Images: Billing Information: * Visit Code: * Procedure Codes: * Electronic signature of Leticia Rider DO on 02/02/2025 at 05:08 PM CSTSign off status: Pending * Provider: Pancho Rider DO Date: Generated for Printing/Faxing/eTransmitting on:?02/02/2025 05:08 PM NATURAL RESOURCES EXTENSION EDUCATOR
--- OUTSIDE RECORDS SUMMARY | 2024-12-20 09:40 | XMS_ITS | Encounter Summary ---
Author Organization [facility] Address [address] [place] [address] Care Team Providers Care Cloth Cutter Name Role Phone Hansel Holden MD Primary Care Provider Reason for Visit * ReasonCommentsFollow-up Encounter Details DateTypeDepartmentCare Team (Latest Contact Info)Cenaqmzaifc78/30/2025 10:40 AM CDTOffice Visit [place] [address] [facility] [place] [address] [place] [address] [place] [address] [place] [phone] Moderate episode of recurrent major depressive disorder (HCC) (Primary Dx); Encounter for counseling regarding contraception; High risk medication use; Screening for diabetes mellitus; Screening for cardiovascular condition; Need for hepatitis C screening test; Screen for STD (sexually transmitted disease); Screening for HIV (human immunodeficiency virus) Social History Tobacco UseTypesPacks/DayYears UsedDateSmoking Tobacco: NeverPassive Smoke Exposure: NeverSmokeless Tobacco: Never Tobacco Cessation:Counseling Given: Not Answered Alcohol UseStandard Drinks/OypsYaspqmwbZmr59 (1 standard drink = 0.6 oz pure alcohol)B1300 Health LiteracyAnswerDate RecordedHow often do you need to have someone help you when you read instructions, pamphlets, or other written material from your doctor or pharmacy?Never11/06/2024HC UtilitiesAnswerDate RecordedIn the past 12 months has the [employer], gas, oil, or water [employer] threatened to shut off services in your home?No11/06/2024Humiliation, Afraid, Rape, and Kick questionnaireAnswerDate RecordedWithin the last year, have you been afraid of your partner or ex-partner?No11/06/2024Within the last year, have you been humiliated or emotionally abused in other ways by your partner or ex-partner?No11/06/2024Within the last year, have you been kicked, hit, slapped, or otherwise physically hurt by your partner or ex-partner?No11/06/2024Within the last year, have you been raped or forced to have any kind of sexual activity by your partner or ex-partner?11/06/2024Social Connection and Isolation Panel AnswerDate RecordedIn a typical week, how many times do you talk on the phone with family, friends, or neighbors?More than three times a week11/06/2024How often do you get together with friends or relatives?More than three times a week 11/06/2024How often do you attend evangelical or scientology services?Never11/06/2024Do you belong to any clubs or organizations such as evangelical groups, unions, fraternal or athletic groups, or school groups?No11/06/2024How often do you attend meetings of the clubs or organizations you belong to?Never11/06/2024re you , , , , never , or living with a partner?Patient tvaprnpr65/16/2025UDIT-CAnswerDate RecordedQ1: How often do you have a drink containing alcohol?4 or more times a week11/06/2024Q2: How many drinks containing alcohol do you have on a typical day when you are drinking?3 or Q3: How often do you have six or more drinks on one occasion?Less than gayfodi6411/06/2024Overall Financial Resource Strain (CARDIA)AnswerDate RecordedHow hard is it for you to pay for the very basics like food, housing, medical care, and heating?Hard11/06/2024PHQ-2AnswerDate RecordedPHQ-9 Total Aczbn9947Fin[facility] of Occupational Health - Occupational Stress QuestionnaireAnswerDate RecordedDo you feel stress - tense, restless, nervous, or anxious, or unable to sleep at night because yourmind is troubled all the time - these days?Rather much11/06/2024Exercise Vital SignAnswerDate RecordedOn average, how many days per week do you engage in moderate to strenuous exercise (like a brisk walk)?6 days11/06/2024On average, how many minutes do you engage in exercise at this level?90 min11/06/2024Hunger Vital SignAnswerDate Recorded Within the past 12 months, you worried that your food would run out before you got the money to buymore.Never true11/06/2024Within the past 12 months, the food you bought just didn't last and you didn't have money to get more.Never true 11/06/2024PRAPARE - TransportationAnswerDate RecordedIn the past 12 months, has lack of transportation kept you from medical appointments or from getting medications?No11/06/2024In the past 12 months, has lack of transportation kept you from meetings, work, or from getting things needed for daily living?No 11/06/2024Housing Stability Vital SignAnswerDate RecordedIn the last 12 months, was there a time when you were not able to pay the mortgage or rent on time?No 11/06/2024Number of Times Moved in the Last YearNot on file11/06/2024t any time in the past 12 months, were you homeless or living in a mcfp (including now)? No11/06/2024CommentsNoSex and Gender InformationValueDate RecordedSex Assigned at BirthNot on fileLegal GndQfdfbp73/11/2024 2:49 PM CDTGender Identity Not on fileSexual OrientationNot on fileOccupationIndustryJob Start DateJob End DateTargetNot on fileNot on fileNot on filedocumented as of this encounter Last Filed Vital Signs Vital SignReadingTime TakenCommentsBlood Muclzdix075/6510 10:31 AM CDT Uqaqo518812/20/2024 10:31 AM YFNSdidsqcwtyt08.1 ??C (98.8 ??F)12/20/2024 10:31 AM CDTRespiratory Sned9821 10:31 AM CDTOxygen Qdcuedtuwr458%12/20/2024 10:31 AM CDTInhaled Oxygen Concentration--Sfxhtq18.7 kg (162 lb 8 oz)12/20/2024 10:31 AM CDTHeight--Body Mass Index26.121 4:29 PM CDTdocumented in this encounter Functional Status * BPAnswerDate of TjnnbvblthVescst182/6512/20/2024 10:31 AM Nika Miller * PulseAnswerDate of DzvnkaisirYabbpx3115/30/2025 10:31 AM Nika Miller documented as of this encounter Patient Instructions * Patient Instructions* Hansel Holden MD - 12/20/2024 10:40 AM CDT Lets increase the lamictal to 50mg (2 Tablets) daily until we meet in about 6 weeks. Today we got a Depo-Provera shot I placed a reminder call in 3 months time to remind you to come inand get your next shot. We will plan on getting your preventative health updated at your next visit so we will do some fasting labs prior and we will coordinate it so that Nazanin is here and we can try and get your gynecologic exam done on the same day. * Attachments The following attachments cannot be sent through Care Everywhere. 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 Last time we met we started treatment with a nice low dose of Lamictal unfortunately she had had side effects from some previous interventions we had made so that we were trying to get some mood stabilization on board so that we can plan on getting her other medication which is fluoxetine to a more effective dosage. She is also working with a nonpharmacologic psychologist and counseling team at [facility]. She tells me she is doing fairly well she says that she feels things are a little smoother but mostimportantly she has not noticed any worsening of her symptoms no worsening suicidality or other side effects noted with the medication. We did also today have a discussion about preventative medicine and contraception she is sexually active and she does not necessarily plan on having a child for the time being so we would like to do some contraceptive management. Historically she was on the combined OCP which she says she did fairly well with she also had a Mirena IUD which while she did not have any side effects or problems withthat she did end up having it dislodged and she had to have it removed under anesthesia which was unpleasant. Her major concern is that any contraceptive that we use may impact her mental health. Allergies[1] Medical History[2] Social History[3] Family History[4] Review of Systems Constitutional: Negative for chills, diaphoresis, fatigue, fever and unexpected weight change. HENT: Negative for congestion, ear pain, nosebleeds, rhinorrhea, sinus pain, sore throat, trouble swallowing and voice change. Eyes: Negative for pain and visual disturbance. Respiratory: Negative for cough, chest tightness, shortness of breath and wheezing. Cardiovascular: Negative for chest pain, palpitations and leg swelling. Gastrointestinal: Negative for abdominal pain, blood in stool, constipation, diarrhea, nausea and vomiting. Genitourinary: Negative for dysuria, flank pain, frequency, genital sores, hematuria, menstrual problem, vaginal bleeding and vaginal discharge. Musculoskeletal: Negative for arthralgias, back pain, joint swelling and neck pain. Skin: Negative for rash. Neurological: Negative for dizziness, tremors, syncope, speech difficulty, light-headedness, numbness and headaches. Objective Physical Exam Vitals and nursing note reviewed. Constitutional: General: She is not in acute distress. Appearance: Normal appearance. She is normal weight. HENT: Head: Normocephalic and atraumatic. Cardiovascular: Rate and Rhythm: Normal rate and regular rhythm. Heart sounds: Normal heart sounds. No murmur heard. No friction rub. No gallop. Pulmonary: Effort: Pulmonary effort is normal. Breath sounds: Normal breath sounds. No wheezing, rhonchi or rales. Neurological: Mental Status: She is alert. Psychiatric: Comments: Reactive affect, happy mood, not responding to internal stimuli, denied SI or HI. Assessment/Plan Diagnoses and all orders for this visit: Moderate episode of recurrent major depressive disorder (HCC) - lamoTRIgine (LaMICtal) 25 MG tablet; Take 2 tablets (50 mg total) by mouth 1 (one) time each day - CBC Branch Off w/Diff; Future - Comprehensive metabolic panel; Future Encounter for counseling regarding contraception - , urine - medroxyPROGESTERone (DEPO-PROVERA) injection 150 mg High risk medication use - CBC Branch Off w/Diff; Future - Comprehensive metabolic panel; Future Screening for diabetes mellitus - Hemoglobin A1c; Future Screening for cardiovascular condition - Lipid panel; Future Need for hepatitis C screening test - Hepatitis C antibody; Future Screen for STD (sexually transmitted disease) - RPR; Future Screening for HIV (human immunodeficiency virus) - HIV 1 & 2 Ag and Ab, 4th Gen, Screen; Future 1. Treatment resistant depression: My plan is to increase her Lamictal to 50 mg daily. Our goal dose is 100 mg daily and we will increase this by increments of 25 mg until we achieve this we will plan on staying at 50 mg daily until we meet next in 4 to 6 weeks where we will undertake her annual exam. At this same visit I will obtain some med monitoring labs to include a CBC and CMP. She will continue to work with [facility] regarding her nonpharmacologic behavioral health interventions. 2. Contraceptive management: After discussing with her various different options we would like to go ahead and try a Depo-Provera shot. We will obtain a test first and as long as it is negative we will go ahead with that shot. Preventative medicine: She is up-to-date on vaccinations but she is due for a Pap smear so we will plan on meeting in 6 weeks time to undertake her annual physical. She tells me that she would prefera female provider to do the gynecologic exam so we will try and coordinate it so that my female partner Javad Frazier is present. [1] No Known Allergies [2] Past Medical History: Diagnosis Date Anorexia nervosa with bulimia (HCC) Anxiety Depression Insomnia PTSD (post-traumatic stress disorder) [3] Social History Tobacco Use Smoking status: Never Smokeless tobacco: Never Vaping Use Vaping status: Every Day Substances: Nicotine Devices: Pre-filled or refillable cartridge Substance Use Topics Alcohol use: Yes Alcohol/week: 10.0 standard drinks of alcohol Types: 10 Standard drinks or equivalent per week Drug use: Not Currently Types: Marijuana [4] No family history on file. * Teena Conley LPN - 12/20/2024 10:40 AM CDT Nurse Note Depo Given: Today Location: Right gluteal Due: Mar 07-Mar 21 2025 Gave patient appointment return reminder card documented in this encounter Plan of Treatment DateTypeDepartmentCare Team (Latest Contact Info)Gmredoynmny75/05/2026 8:00 AM CSTOffice Visit [address] [address] 02/27/2025 8:20 AM CSTOffice Visit [address] [address] Melva Mena, [place] [facility] [address] [place] [address] NameTypePriorityAssociated DiagnosesOrder ScheduleCBC Branch Off w/DiffLab Routine Moderate episode of recurrent major depressive disorder (HCC) High risk medication use Expected: 12/20/2024, Expires: 12/20/2025Hemoglobin V3ySdnQzmtxly Screening for diabetes mellitus Expected: 12/20/2024, Expires: 12/20/2025Hepatitis C antibodyLabRoutine Need for hepatitis C screening test Expected: 12/20/2024, Expires: 12/20/2025HIV 1 & 2 Ag and Ab, 4th Gen, ScreenLab Routine Screening for HIV (human immunodeficiency virus) Expected: 12/20/2024, Expires: 12/20/2025Lipid panelLabRoutine Screening for cardiovascular condition Expected: 12/20/2024, Expires: 12/20/2025RPRLabRoutine Screen for STD (sexually transmitted disease) Expected: 12/20/2024, Expires: 12/20/2025omprehensive metabolic panelLabRoutine Moderate episode of recurrent major depressive disorder (HCC) High risk medication use Expected: 12/20/2024, Expires: 12/20/2025documented as of this encounter Procedures Procedure NamePriorityDate/TimeAssociated DiagnosisCommentsPREGNANCY, URINE Fhafbcn4312/20/2024 10:55 AM CDT Encounter for counseling regarding contraception documented in this encounter Results * , urine (12/20/2024 10:55 AM CDT)ComponentValueRef RangeTest Method Analysis TimePerformed AtPathologist SignaturePregnancy Test, UrineNEGATIVE Yellmhly25/30/2025 11:03 AM [facility]ITAL[facility] (Source)Anatomical Location / LateralityCollection Method / VolumeCollection TimeReceived Time Urine (Urine, Clean Catch)12/20/2024 10:55 AM CDT1 10:55 AM CDT Narrative Authorizing ProviderResult TypeResult StatusMattyajaira SHEA URINE ORDERABLESFinal ResultPerforming OrganizationAddressCity/State/ZIP CodePhone Number [facility] [place] [address] [place] [address] documented in this encounter Visit Diagnoses Diagnosis Moderate episode of recurrent major depressive disorder (HCC)- Primary Encounter for counseling regarding contraception High risk medication use Screening for diabetes mellitus Screening for cardiovascular condition Screening for other and unspecified cardiovascular conditions Need for hepatitis C screening test Special screening examination for other specified viral diseases Screen for STD (sexually transmitted disease) Screening examination for venereal disease Screening for HIV (human immunodeficiency virus) Special screening examination for other specified viral diseases documented in this encounter Administered Medications Medication OrderMAR ActionAction DateDoseRateSite medroxyPROGESTERone (DEPO-PROVERA) injection 150 mg 150 mg, Intramuscular, Every 3 months, First dose on Tue12/20/24 at 1130, For 4 doses, NIOSH Class2: ??? Unit dose tablet: wear single pair gloves (ASTM). ??? Intrauterine device: wear double pair gloves (ASTM). ??? Topical: wear double pair gloves (ASTM), chemo gown. If there is potential for inhalation, respiratory protection is recommended. ??? Oral solution/feeding tube administration/potential for vomit or spit up: wear double gloves (ASTM), chemo gown, mask, eye protection. ??? Injection solution: wear double gloves (ASTM), mask, eye protection. Wear chemo gown if liquid could splash.??? Avoid contact during /while nursing. Indications:Encounter for counseling regarding evjsclvizzotdDoubg29/30/2025 11:07 AM CMX350 mgLeft Glutealdocumented in this encounter Care Teams Team MemberRelationshipSpecialtyStart DateEnd Date Hansel Holden MD [address] [place] [address] PCP - GeneralFamily Medicine11/15/24documented as of this encounter
--- OUTSIDE RECORDS SUMMARY | 2025-01-14 09:20 | XMS_ITS | Encounter Summary ---
Author Organization [facility] er Address [address] [place] [address] Care Team Providers Care Technical Writer And Editor Name Role Phone Hansel Holden MD Primary Care Provider [phone] Reason for Visit * ReasonCommentsFollow-up Encounter Details DateTypeDepartmentCare Team (Latest Contact Info)Lrjcnjnpkkh24/24/2025 9:20 AM CSTOffice Visit [facility] [address] [address] [place] [address] [place] [phone] Moderate episode of recurrent major depressive disorder (HCC) (Primary Dx) Social History Tobacco UseTypesPacks/DayYears UsedDateSmoking Tobacco: NeverPassive Smoke Exposure: NeverSmokeless Tobacco: NeverAlcohol UseStandard Drinks/WeekComments Yes10 (1 standard drink = 0.6 oz pure alcohol)B1300 Health LiteracyAnswerDate RecordedHow often do you need to have someone help you when you read instructions, pamphlets, or other written material from your doctor or pharmacy? Never11/06/2024HC UtilitiesAnswerDate RecordedIn the past 12 months has the [employer], gas, oil, or water [place] threatened to shut off services in your home?No11/06/2024Humiliation, Afraid, Rape, and Kick questionnaireAnswerDate RecordedWithin the last year, have you been afraid of your partner or ex-partner?No11/06/2024Within the last year, have you been humiliated or emotionally abused in other ways by your partner or ex-partner?No11/06/2024 Within the last year, have you been kicked, hit, slapped, or otherwise physically hurt by your partner or ex-partner?No11/06/2024Within the last year, have you been raped or forced to have any kind of sexual activity by your part ner or ex-partner?No11/06/2024Social Connection and Isolation PanelAnswerDate RecordedIn a typical week, how many times do you talk on the phone with family, friends, or neighbors?More than three times a week11/06/2024How often do you get together with friends or relatives?More than three times a week11/06/2024How often do you attend hoahaoism or muslim services?Never11/06/2024Do you belong to any clubs or organizations such as hoahaoism groups, unions, [employer] or athletic groups, or school groups?No11/06/2024How often do you attend meetings of the clubs or organizations you belong to?Never11/06/2024re you , , , , never , or living with a partner?Patient declined 11/06/2024UDIT-CAnswerDate RecordedQ1: How often do you have a drink containing alcohol?4 or more times a week11/06/2024Q2: How many drinks containing alcohol do you have on a typical day when you are drinking?3 or Q3: How often do you have six or more drinks on one occasion?Less than iobiehf3811/06/2024 Overall Financial Resource Strain (CARDIA)AnswerDate RecordedHow hard is it for you to pay for the very basics like food, housing, medical care, and heating? Hard11/06/2024PHQ-2AnswerDate RecordedPHQ-9 Total Gqxks1215Fin[facility] [place] of Occupational Health - Occupational Stress QuestionnaireAnswerDate [...] exercise at this level?90 min11/06/2024Hunger Vital SignAnswerDate RecordedWithin the past 12 months, you worried that your food would run out before you got the money to buy more.Never true11/06/2024Within the past 12 months, the food you bought just didn't last and you didn't have money to get more.Never true11/06/2024PRAPARE - TransportationAnswerDate RecordedIn the past 12 months, has lack of transportation kept you from medical appointments or from getting medications?No 11/06/2024In the past 12 months, has lack of transportation kept you from meetings, work, or from getting things needed for daily living?No11/06/2024 Housing Stability Vital SignAnswerDate RecordedIn the last 12 months, was there a time when you were not able to pay the mortgage or rent on time?No11/06/2024 Number of Times Moved in the Last YearNot on file11/06/2024t any time in the past 12 months, were you homeless or living in a correction (including now)?No 11/06/2024CommentsNoSex and Gender InformationValueDate RecordedSex Assigned at BirthNot on fileLegal KzeWogfck06/11/2024 2:49 PM CDTGender Identity Not on fileSexual OrientationNot on fileOccupationIndustryJob Start DateJob End DateTargetNot on fileNot on fileNot on filedocumented as of this encounter Last Filed Vital Signs Vital SignReadingTime TakenCommentsBlood Xjqeydea421/6211 9:18 AM PAINTER CHASSIS Yavxq825001/14/2025 9:18 AM IYCWxrothvsacg39.4 ??C (99.3 ??F)01/14/2025 9:18 AM CSTRespiratory Mwuq925603/16/2024 9:18 AM CSTOxygen Mbsdrfchkb43%01/14/2025 9:18 AM CSTInhaled Oxygen Concentration--Evfopj76.9 kg (165 lb 1.6 oz)01/14/2025 9:18 AM EUWUwgund412 cm (5' 6.14)01/14/2025 9:18 AM CSTBody Mass Index26.53 01/14/2025 9:18 AM CSTdocumented in this encounter Functional Status * BPAnswerDate of TroxeqvryvHijxuf984/6211 9:18 AM Cindy Salmeron RN * PulseAnswerDate of RkcvlonqvaTzkekf3078 9:18 AM Cindy Salmeron RN documented as of this encounter Patient Instructions * Patient Instructions* Hansel Holden MD - 01/14/2025 9:20 AM PAINTER CHASSIS Lets increase the lamictal to 75mg Daily TER CHASSIS documented in this encounter Progress Notes * Hansel Holden MD - 01/14/2025 9:20 AM CST Jazmin Carroll is a 19 y.o., female here today for follow-up on her major depressive disorder. Last time we met we increased her Lamictal to 50 mg goal dosage being at 100 mg. We also referred her to [facility] [place] for some nonpharmacologic interventions and we administered the Depo-Provera shot. She says she is doing well she has no concerns no side effects from the medication. She has good plans for the holidays and she is continuing with her psychology with [facility] [place]. Allergies[1] Medical History[2] Social History[3] Family History[4] medroxyPROGESTERone, 150 mg, Intramuscular, q3 months Review of Systems Constitutional: Negative for chills, [...] Appearance: Normal appearance. She is normal weight. Cardiovascular: Rate and Rhythm: Normal rate and regular rhythm. Heart sounds: Normal heart sounds. No murmur heard. No friction rub. No gallop. Pulmonary: Effort: Pulmonary effort is normal. Breath sounds: Normal breath sounds. No wheezing, rhonchi or rales. Neurological: Mental Status: She is alert. Psychiatric: Comments: Appropriate mood and affect not responding to internal stimuli she was cooperative with the exam denied SI or HI Assessment/Plan Diagnoses and all orders for this visit: Moderate episode of recurrent major depressive disorder (HCC) - lamoTRIgine (LaMICtal) 25 MG tablet; Take 3 tablets (75 mg total) by mouth 1 (one) time each day 1. Treatment resistant depression: We will continue with up titration of the Lamictal and we will go up to 75 mg my plan will be when we meet in January we will plan on increasing to 100 mg which ismy goal dosage. [1] No Known Allergies [2] Past Medical History: Diagnosis Date Anorexia nervosa with bulimia (HCC) Anxiety Depression Insomnia PTSD (post-traumatic stress disorder) [3] Social History Tobacco Use Smoking status: Never Passive exposure: Never Smokeless tobacco: Never Vaping Use Vaping status: Every Day Substances: Nicotine Devices: Pre-filled or refillable cartridge Substance Use Topics Alcohol use: Yes Alcohol/week: 10.0 standard drinks of alcohol Types: 10 Standard drinks or equivalent per week Drug use: Not Currently Types: Marijuana [4] No family history on file. TER CHASSIS documented in this encounter Plan of Treatment DateTypeDepartmentCare Team (Latest Contact Info)Czjsyvpctvd95/05/2026 8:00 AM CSTOffice Visit [address] [address] 02/27/2025 8:20 AM CSTOffice Visit [address] [address] Melva Mena FINE HAIRER [address] [place] [address] documented as of this encounter Visit Diagnoses Diagnosis Moderate episode of recurrent major depressive disorder (HCC)- Primary documented in this encounter Care Teams Team MemberRelationshipSpecialtyStart DateEnd Date Hansel Holden MD [address] [place] [address] PCP - GeneralFamily Medicine11/15/24documented as of this encounter
--- OUTSIDE RECORDS SUMMARY | 2025-01-30 15:00 | XMS_ITS | Encounter Summary ---
Author Organization [facility] er Address [address] [place] [address] Care Team Providers Care Orange Picker Machine Operator Name Role Phone Hansel Holden MD Primary Care Provider [phone] Reason for Referral * Consultation (Routine) - Pending ReviewSpecialtyDiagnoses / ProceduresReferred By ContactReferred To Contact Diagnoses Cannabis hyperemesis syndrome concurrent with and due to cannabis dependence (HCC) Cannabis use disorder Hansel Holden MD [address] [address] Phone: tel: fax: Referral IDStatusReasonStart DateExpiration DateVisits RequestedVisits [id number] Yqukpb96/ CHING MACHINE OPERATOR Reason for Visit * ReasonCommentsNauseaAbdominal Pain Encounter Details DateTypeDepartmentCare Team (Latest Contact Info)Jzzsxjqwabb17/10/2025 3:00 PM CSTOffice Visit [address] [address] Hansel Holden MD [address] [address] Cannabis hyperemesis syndrome concurrent with and due to cannabis dependence (HCC) (Primary Dx); Cannabis use disorder; Moderate episode of recurrent major depressive disorder (HCC); Generalized anxiety disorder Social History Tobacco UseTypesPacks/DayYears UsedDateSmoking Tobacco: NeverPassive Smoke Exposure: NeverSmokeless Tobacco: NeverAlcohol UseStandard Drinks/WeekComments Yes10 (1 standard drink = 0.6 oz pure alcohol)B1300 Health LiteracyAnswerDate RecordedHow often do you need to have someone help you when you read instructions, pamphlets, or other written material from your doctor or pharmacy? Never11/06/2024HC UtilitiesAnswerDate RecordedIn the past 12 months has the [employer], gas, oil, or water company threatened to shut off services in your [...] sexual activity by your part ner or ex-partner?11/06/2024Social Connection and Isolation PanelAnswerDate RecordedIn a typical week, how many times do you talk on the phone with family, friends, or neighbors?More than three times a week11/06/2024How often do you get together with friends or relatives?More than three times a week11/06/2024How often do you attend advent or catholic services?Never11/06/2024Do you belong to any clubs or organizations such as advent groups, unions, fraternal or athletic groups, or [...] or more drinks on one occasion?Less than ouckkjy7211/06/2024 Overall Financial Resource Strain (CARDIA)AnswerDate RecordedHow hard is it for you to pay for the very basics like food, housing, medical care, and heating? Hard11/06/2024PHQ-2AnswerDate RecordedPHQ-9 Total Olxfg9913/10/2025Finmountain west medical center [place] of Occupational Health - Occupational Stress QuestionnaireAnswerDate [...] were you homeless or living in a long-term (including now)?No 11/06/2024CommentsNoSex and Gender InformationValueDate RecordedSex Assigned at BirthNot on fileLegal PduZzrqta40/11/2024 2:49 PM CDTGender Identity Not on fileSexual OrientationNot on fileOccupationIndustryJob Start DateJob End DateTargetNot on fileNot on fileNot on filedocumented as of this encounter Last Filed Vital Signs Vital SignReadingTime TakenCommentsBlood Psforfzg340/8801/30/2025 2:36 PM QUENCHING MACHINE OPERATOR Crjvm63895/10/2025 2:36 PM GBBOqjjgtrwagl64.7 ??C (99.9 ??F)01/30/2025 2:36 PM CSTRespiratory Pxqp819604/02/2024 2:36 PM CSTOxygen Saturation--Inhaled Oxygen Concentration--Weight--Height--Body Mass Index--documented in this encounter Functional Status * BPAnswerDate of ValsnoegbuXtojjz048/8801/30/2025 2:36 PM Sultana Montilla * PulseAnswerDate of HzgulxldcsSlqyoz28087/10/2025 2:36 PM Sultana Montilla documented as of this encounter Patient Instructions * Patient Instructions* Hansel Holden MD - 01/30/2025 3:00 PM QUENCHING MACHINE OPERATOR I sent in some zofran to help with the nausea, I also sent in some Capsaicin cream too. Let me know if you want me to send the other, Aprepitant in by noon tomorrow. Make sure you keep that intake with [facility] Do your best to keep taking your regular meds as possible CHING MACHINE OPERATOR CHING MACHINE OPERATOR documented in this encounter Progress Notes * Hansel Holden MD - 01/30/2025 3:00 PM CST Jazmin Carroll is a 19 y.o., female here today for some nausea and vomiting. Jazmin previously had a lot of trouble with marijuana use disorder and some cannabis induced hyperemesis. She had been doing very well in terms of abstinence from use she is here today in quite a lot of distress with hernausea and vomiting. She relapsed with her marijuana use roughly 1 month ago she has been vaping what she describes as alow-dose pen. She has been using it continuously throughout the day. She tells me that unfortunately she has been having a lot of family and work stresses which have been weighing on her. She is interested in doing some intensive outpatient therapy. Allergies[1] Medical History[2] Social History[3] Family History[4] [...] chest pain, palpitations and leg swelling. Gastrointestinal: Positive for [...] nursing note reviewed. Constitutional: General: She is in acute distress. Appearance: Normal appearance. She is ill-appearing. HENT: Head: Normocephalic and atraumatic. Cardiovascular: Rate and Rhythm: Normal rate and regular rhythm. Heart sounds: Normal heart sounds. No murmur heard. No friction rub. No gallop. Pulmonary: Effort: Pulmonary effort is normal. Breath sounds: Normal breath sounds. No wheezing, rhonchi or rales. Abdominal: General: Abdomen is flat. Bowel sounds are normal. Palpations: Abdomen is soft. Tenderness: There is abdominal tenderness. There is no guarding or rebound. Neurological: Mental Status: She is alert. Assessment/Plan Diagnoses and all orders for this visit: Cannabis hyperemesis syndrome concurrent with and due to cannabis dependence (HCC) - capsaicin cream (CAPZASIN-HP) 0.1 % cream cream; Apply 1 application topically 4 (four) times a day Apply a thin film to upper abdomen - ondansetron ODT (ZOFRAN-ODT) 4 MG dispersible tablet; Take 1 tablet (4 mg total) by mouth every 8(eight) hours if needed for nausea or vomiting - Ambulatory External Referral [facility]; [place]; *Other (specify in comment field) (Use Disorder Treatment) - ondansetron ODT (ZOFRAN-ODT) dispersible tablet 8 mg Cannabis use disorder - Ambulatory External Referral [facility]; [place]; *Other (specify in comment field) (Use Disorder Treatment) Moderate episode of recurrent major depressive disorder (HCC) Generalized anxiety disorder 1. Cannabis hyperemesis syndrome: Today in the clinic she received a total of 8 mg of Zofran. I sent her home with a prescription for similar and also a prescription for capsaicin cream if she struggles still tomorrow I will send in a prescription for Aprepitant. We also contacted [facility] to take walk-ins at the clinic and we organized a evaluation and intake visit next week. [1] No Known Allergies [2] Past Medical [...] Marijuana [4] No family history on file. CHING MACHINE OPERATOR documented in this encounter Plan of Treatment DateTypeDepartmentCare Team (Latest Contact Info)Plyobvrmipk54/05/2026 8:00 AM CSTOffice Visit [address] [address] 02/27/2025 8:20 AM CSTOffice Visit [address] [address] Melva Mena, LONG HAUL TRUCK DRIVER [address] [place] [address] NameTypePriorityAssociated DiagnosesOrder ScheduleAmbulatory External Referral [facility]; [place]; *Other (specify in comment field) (Use Disorder Treatment)Outpatient ReferralRoutine Cannabis hyperemesis syndrome concurrent with and due to cannabis dependence (HCC) Cannabis use disorder Ordered: 01/30/2025documented as of this encounter Visit Diagnoses Diagnosis Cannabis hyperemesis syndrome concurrent with and due to cannabis dependence (HCC)- Primary Cannabis use disorder Moderate episode of recurrent major depressive disorder (HCC) Generalized anxiety disorder documented in this encounter Administered Medications Medication OrderMAR ActionAction DateDoseRateSite ondansetron ODT (ZOFRAN-ODT) dispersible tablet 8 mg 8 mg, Oral, Once, On Tue01/30/25 at 1630, For 1 dose, Administered by myself Indications:Cannabis hyperemesis syndrome concurrent with and due to cannabis dependence (HCC)Given01/30/2025 3:51 PM CST8 mgdocumented in this encounter Care Teams Team MemberRelationshipSpecialtyStart DateEnd Date Hansel Holden MD [address] [place] [address] PCP - GeneralFamily Medicine11/15/24documented as of this encounter
[2025-02-02] VITALS (8 sets, daily range): BP systolic 119–125; BP diastolic 74–90; PULSE 68–83; RESP 15–19; TEMP 36.2; O2SAT 95–100
--- OUTSIDE RECORDS SUMMARY | 2025-02-02 17:07 | XMS_ITS | Clinical Summary ---
Author Organization [facility] Address [address] [place] [address] Care Team Providers Care Blood Bank Technologist Name Role Phone [facility] Primary Care Provider [phone] [phone] Allergies No known active allergies Medications MedicationSigDispense QuantityRefillsLast FilledStart DateEnd DateStatus hydrOXYzine pamoate (VISTARIL) 50 mg capsule Take 50 mg by mouth 3 times daily if needed.5Active lurasidone (LATUDA) 20 mg tablet 5Active Active Problems ProblemNoted DateDiagnosed LtaqUwxndieqmpj22/30/2025Cyclic vomiting syndrome 5Cannabis hyperemesis syndrome concurrent with and due to cannabis tpeqdompdr70/24/2025Gastroesophageal reflux upsjzdc4509/20/2022eneralized anxiety zohztagr79/14/2018Major depressive disorder, recurrent, imuxhcpx40/14/2018 Encounters DateTypeDepartmentCare QpktYojqsusqlay94/14/2025 12:58 PM CDT - 11/04/2024 1:37 PM CDTEmergency [facility] [place] [address] [place] [address] Vince Brizuela PA Rash and nonspecific skin eruption (Primary Dx) Discharge Disposition: Home Self Carefrom Last 3 Months Social History Tobacco UseTypesPacks/DayYears UsedDateSmoking Tobacco: FormerCigarettes Smokeless Tobacco: Never Tobacco Cessation:Counseling Given: Not Answered Alcohol UseStandard Drinks/WeekCommentsYes0 (1 standard drink = 0.6 oz pure alcohol)SociallyInterpersonal SafetyAnswerDate RecordedAre you being hit, kicked, pushed or yelled at (see row info)?No09/18/2024Interpersonal Safety Abuse 12 - 18Not on file09/18/2024Interpersonal Safety Ambulatory Vulnerability Not on file09/18/2024CommentsNoSex and Gender InformationValueDate RecordedSex Assigned at BirthNot on fileLegal LmkKuodzj57/25/2020 10:35 AM PUBLIC TRANSIT TROLLEY DRIVER Gender IdentityNot on fileSexual OrientationNot on file Last Filed Vital Signs Vital SignReadingTime TakenCommentsBlood Wymbxzhd196/7409 1:04 PM CDT Cpvqn6583/14/2025 1:04 PM SOTBtpdpluaaqi08.8 ??C (98.3 ??F)11/04/2024 1:04 PM CDTRespiratory Fjqi193011/04/2024 1:04 PM CDTOxygen Usnmfgfpws74%11/04/2024 1:04 PM CDTInhaled Oxygen Concentration--Yguktl63.1 kg (170 lb)11/04/2024 1:04 PM CDT Jdvdqb212.1 cm (5' 5)11/04/2024 1:04 PM CDTBody Mass Index28.2909 1:04 PM CDT Plan of Treatment Health MaintenanceDue DateLast DoneCommentsTetanus txjrfkb7010/13/2014Depression screening for age 12+2015HIV for age 15-HPV series for age 9- 45 (1 - 3-dose series)10/13/2018Chlamydia for age 16-Meningococcal series for age 11-21 (1 - 2-dose series)2019BMI (ht and wt on same day) for age 18+10/13/2021Hepatitis C screening for age 18-7910/13/2021Hepatitis B series for 19+ (1 of 3 - 19+ 3-dose series)3Pap test for age 21-65 10/13/2024OVID-19 vaccine series (2 - 2024- season)/06/2023 Influenza Vaccine (#1)2024Pneumococcal series for age 6-49Aged OutNo longer eligible based on patient's age to complete this topic Insurance Advance Directives * Full Code (Latest Code Status on File) Date ActivatedDate InactivatedComments09/18/2024 11:50 PM09/19/2024 8:33 PM QuestionAnswerCommentsCode Status Discussion:* Reviewed Preferences Care Teams Team MemberRelationshipSpecialtyStart DateEnd [facility]ly [facility], [address] [place] [address] PCP - General07/23/23
--- OUTSIDE RECORDS SUMMARY | 2025-02-02 17:08 | XMS_ITS | Encounter Summary ---
Author Organization [facility] er Address [address] [place] [address] Care Team Providers Care Binder Cutter Hand Name Role Phone Hansel Holden MD Primary Care Provider [phone] Reason for Visit * ReasonOnset UfmaGtthuelaWxqotf82/10/2025 Encounter Details DateTypeDepartmentCare Team (Latest Contact Info)Cvczddsjydq58/10/2025Nurse Triage [facility] [address] [facility] [address] [place] [address] Hansel Holden MD [address] [address] Social History Tobacco UseTypesPacks/DayYears UsedDateSmoking Tobacco: NeverPassive Smoke Exposure: NeverSmokeless Tobacco: NeverAlcohol UseStandard Drinks/WeekComments Yes10 (1 standard drink = 0.6 oz pure alcohol)B1300 Health LiteracyAnswerDate RecordedHow often do you need to have someone help you when you read instructions, pamphlets, or other written material from your doctor or pharmacy? Never11/06/2024HC UtilitiesAnswerDate RecordedIn the past 12 months has the [employer] gas, oil, or water [employer] threatened to shut off services in your [...] times a week11/06/2024How often do you attend jainism or oriental orthodox services?Never11/06/2024Do you belong to any clubs or organizations such as jainism groups, unions, fraternal or athletic groups, or [...] or more drinks on one occasion?Less than wxxwizn1711/06/2024 Overall Financial Resource Strain (CARDIA)AnswerDate RecordedHow hard is it for you to pay for the very basics like food, housing, medical care, and heating? Hard11/06/2024PHQ-2AnswerDate RecordedPHQ-9 Total Agcrb2226/10/2025Fin[facility] hospital [place] of Occupational Health - Occupational Stress QuestionnaireAnswerDate [...] were you homeless or living in a fpc (including now)?No 11/06/2024CommentsNoSex and Gender InformationValueDate RecordedSex Assigned at BirthNot on fileLegal BcxOezhlm30/11/2024 2:49 PM CDTGender Identity Not on fileSexual OrientationNot on fileOccupationIndustryJob Start DateJob End DateTargetNot on fileNot on fileNot on filedocumented as of this encounter Miscellaneous Notes * Telephone Encounter - Breanna Mcguire RN - 01/30/2025 1:39 PM FAMILY NURSE Hyperemeisis syndrome Haven't been able to keep anything down. Reason for Conversation Nausea Background Patient calls and is tearful as she has symptoms of her hyperemesis syndrome. Patient reports that she started feeling nauseated last night but this morning has been unable to keep any fluids down. Patient reports that she has been in and out taking hot showers all morning without relief. Patient reports that she feels like she is going into one of her episodes and is concerned. Patient is tearful on the phone. Patient is aware that she should probably go to the ER but would like to be seen by her provider in clinic. Disposition No disposition on file. Patient was transferred to clinic to schedule to a same day appointment. Reason for Disposition No Reason for Disposition on file. No Initial Assessment on file. No Additional Information on file. Protocols Used Nausea-A-OH LY NURSE documented in this encounter Plan of Treatment DateTypeDepartmentCare Team (Latest Contact Info)Mudkokivwkf00/05/2026 8:00 AM CSTOffice Visit [address] [address] 02/27/2025 8:20 AM CSTOffice Visit [address] [address] Mleva Mena, VARNISHING MACHINE OPERATOR [address] [place] [address] documented as of this encounter Visit Diagnoses Not on filedocumented in this encounter Care Teams Team MemberRelationshipSpecialtyStart DateEnd Date Hansel Holden MD [address] [place] [phone] PCP - GeneralFamily Medicine11/15/24documented as of this encounter
--- OUTSIDE RECORDS SUMMARY | 2025-02-02 17:08 | XMS_ITS | Clinical Summary ---
Author Organization [facility] Address [address], [place] [address] Care Team Providers Care Passport Support Manager Name Role Phone Belle Diaz PA-C Primary Care Provider + [phone] Source Comments You are receiving this document as you are listed as the primary care provider,follow-up provider, or the patient has been referred to you for consultation.This is in compliance with the Medicare and[facility] EHR Incentive Program,which states Providers who transition their patient to another setting of careor provider of care or refers their patient to another provider of care shouldprovide summary care record for each transition of care or referral. [email or web address] Allergies Active AllergyReactionsCriticalityNoted MyxiPreuteriVhynaBjql87/07/2025 Developed a rash on 3rd day of taking Celexa, Abilify and Lamictal. Unsure which caused the allergy. Medications MedicationSigDispense QuantityRefillsLast FilledStart DateEnd DateStatus ALBUterol sulfate HFA 108 (90 Base) MCG/ACT inhaler Indications:Asthma, exercise induced (HRC)Inhale 2 Puffs every 4 hours as needed for Wheezing or Shortness of Breath. 2 Each 2Active lamoTRIgine (LAMICTAL) 25 MG tablet Weeks 1-2: 1 x 25 mg tab po q/day. Weeks 3-4: 2 x 25 mg (50 mg) tab po q/day. Weeks 5: 4 x 25 mg (100 mg) tab po qday. 70 Tablet 5Active Additional Information Patient not taking.Reported on 08/27/2024 citalopram (CELEXA) 10 MG tablet Take 1 Tablet (10 mg) by mouth daily. 90 Tablet 305505/6Active Additional Information Patient not taking.Reported on 08/27/2024 ARIPiprazole (ABILIFY) 2 MG tablet Take 1 Tablet (2 mg) by mouth daily. 30 Tablet 5Active Additional Information Patient not taking.Reported on 08/27/2024 ibuprofen (MOTRIN) 600 MG tablet Indications:Menorrhagia with regular cycleTake 1 Tablet (600 mg) by mouth three times a day.5Active levonorgestrel-ethinyl estrad (ALESSE) 0.1-20 MG-MCG tablet Indications:Menorrhagia with regular cycleTake 1 Tablet by mouth daily. 84 Tablet 507/6Active Active Problems ProblemNoted DateDiagnosed DateIntermittent gwhsdw4904/13/2024norexia nervosa, restricting type01/12/2023History of non-suicidal self-harm11/24/2022Marijuana use10/27/2022Recurrent abdominal pain10/27/20225972Ukumeytkait48/14/2023ERD (gastroesophageal reflux disease)09/20/2022Other specified eating disorder 04/19/2022 Overview (04/19/2022): Atypcial Anorexia Nervosa Abnormal weight loss04/19/2022TSD (post-traumatic stress disorder)04/19/2022 Nonsuicidal self-harm04/19/2022History of suicide skdwrxq0604/19/2022Suicidal jivjwifn33/27/2023Suicide attempt by acetaminophen dtfysekm87/02/2020Asthma, exercise qhrblok3510/04/2017Generalized anxiety odchhkav05/14/2018MDD (major depressive disorder), recurrent episode, /14/2018 Resolved Problems ProblemNoted DateDiagnosed DateResolved RvtiBqwdajavhfg24Mood dqzvgoxp71/urrent mild episode of major depressive disorder Moderate episode of recurrent major depressive disorder Plantar wartAnal kprbtlj0202/26/2012 10/01/2015 Assessment & Plan (02/28/2012 7:08 PM SKEIN BANDER): Rectal itching has been noted for a month. She has been living with her grand niece and started living with her aunt for one year. She was living in [place]. She notices that she itches all day, but it bother her more at night. It itches more in the back. Poop has been normal. Her twin sister has also complained of similar symptoms. She is currently living with an aunt. Apparently her living circumstances with her father and mother have been rough. Routine child health exam Immunizations ImmunizationAdministration DatesNext Hsl1eTWO (Gardasil 9)09/05/2019,10/04/2017 DTaP05/08/2008,09/05/2007,06/22/2004,03/26/2004,2003Flu Vac Preserv Free (3+yrs)11/03/2011HepA Ped/Adol (1-18 yrs)05/08/2008,09/05/2007HepB Ped/Adol (0- 18 yrs)06/22/2004,03/26/2004,2003Hib, Unspecified Foqwlxtdoqy90/02/2005, 03/26/2004,2003IPV (Polio)05/08/2008,06/22/2004,03/26/2004,2003 Influenza IIV4 (Quadrivalent) 0.5mL (03038)11/12/2022MCV4 Menveo 2m.+ (two vial) 08/28/2021,10/01/2015MMR05/08/2008,09/05/2007Pneumococcal 7, PED09/05/2007, 06/22/2004,2003TB Skin Test (PPD)09/20/2017TDAP (BOOSTRIX)10/01/2015 Frgfbztqg89/18/2009,09/05/2007 Family History Medical HistoryRelationNameCommentsAlcohol AbuseBirth FatherBipolar Disorder FatherDrug AbuseBirth FatherAlcohol AbuseBirth MotherAlcohol/Drug Abuse MotherBipolar DisorderBirth MotherBorderline personalityBirth MotherDrug AbuseBirth MotherSeizure DisorderBirth MotherNo Known ProblemsSister Amblyopia/StrabismusNegative Family HistoryRelationNameStatusCommentsBirth FatherAliveBirth MotherAliveSisterAlive Social History Tobacco UseTypesPacks/DayYears UsedDateSmoking Tobacco: FormerCigarettes Smokeless Tobacco: Never Tobacco Cessation:Counseling Given: Not Answered Alcohol UseStandard Drinks/WeekCommentsNo0 (1 standard drink = 0.6 oz pure alcohol)Hunger Vital SignAnswerDate RecordedWithin the past 12 months, you worried that your food would run out before you got the money to buymore.Never true11/24/2022Within the past 12 months, the food you bought just didn't last and you didn't have money to get more.Never true11/24/2022CommentsNoSex and Gender InformationValueDate RecordedSex Assigned at ZxakxLhclfi83/18/2023 5:42 PM CDTLegal TldJgfief21/18/2015 4:21 AM CDTGender EplpwijnOcsaao71/18/2023 5:42 PM CDTSexual FfxhhrupyxdJjpdrdue23/18/2023 5:42 PM CDT Last Filed Vital Signs Vital SignReadingTime TakenCommentsBlood Eizvtsjp209/5707 4:13 PM CDT Rvndk969709/13/2024 4:13 PM KJDXjkkcfrjwis80.8 ??C (98.2 ??F)09/13/2024 4:13 PM CDTRespiratory Ylag777709/13/2024 4:13 PM CDTOxygen Uqpdyaause31%09/13/2024 4:13 PM CDTInhaled Oxygen Concentration--Qvvzpa91.5 kg (148 lb 13 oz)12/13/2022 1:02 PM CDTpt clothed-leggings, bkhyztYarmax184.8 cm (5' 5.28)11/25/2022 6:00 AM CDT Body Mass Index24.5511/25/2022 6:00 AM CDT Plan of Treatment Health MaintenanceDue DateLast DoneCommentsCervical Cancer Screening Due 2003Hep C Screening (Preventive Services)2003MenB Immunization Zgomjcenkk46/23/2004Asthma ACT (score of 20 or higher), 10/04/2017, 10/05/2016, Additional history existsHIV Screening (Preventive Services)2019Adult Preventive Visit/09/2021, 09/05/2019, 10/04/2017, Additional history panhqtJkvorepfn41/01/202506/02/2023, 08/28/2021, 03/29/2019COVID-19 Vaccine ( - season)/06/2023Influenza Vaccine (#1)/, 11/03/2011DTaP/Tdap/Td Vaccine (7 - Tdap) /11/2015, 05/08/2008, 09/05/2007, Additional history exists Zoster/Shingles Vaccine (1 of 2)10/13/2053HepB HnselskIvrkqxbno54/02/2005, 03/26/2004, 2003Hib VaccineAged Out06/22/2004, 03/26/2004, 2003No longer eligible based on patient's age to complete this topicHepA Vaccine Nphawhhsi35/18/2009, 09/05/2007IPV (Polio) AhlhzohXmtyjzugd64/18/2009, 06/22/2004, 03/26/2004, Additional history existsVaricella VaccineCompleted 05/08/2008, 09/05/2007HPV LmbkebaTrrxvrenz57/15/2020, 10/04/2017MCV4 Vaccine Yzrjouogr49/08/2022, 10/01/2015Pneumococcal OseyhviRxzeaxjol37/05/2024, 09/05/2007, 06/22/2004, Additional history exists Procedures Procedure NamePriorityDate/TimeAssociated DiagnosisCommentsCHLAMYDIA & GC, URINE (14 YEARS AND OLDER)Xqbpuiw9408/28/2021 5:42 PM CDT Routine screening for STI (sexually transmitted infection) from Last 3 Months or Most Recently Relevant to Health Maintenance Results * Chlamydia & GC, Urine (14 Years and Older) (08/28/2021 5:42 PM CDT)Component ValueRef RangeTest MethodAnalysis TimePerformed AtPathologist Signature Chlamydia Trachomatis STDNot DetectedNot Sgltcgte10/09/2022 3:28 PM CDT [facility]. gonorrhoeae STDNot DetectedNot Hjdcgbgh35/09/2022 3:28 PM CDTHEMUNSON [facility]CARE [facility] LABSpecimen (Source)Anatomical Location / LateralityCollection Method / VolumeCollection TimeReceived TimeUrine STD (Urine for STD)Non-blood Collection / Nejpfyq5308/28/2021 5:42 PM CDT08/28/2021 5:42 PM CDT Narrative [facility] - 08/29/2021 3:28 PM CDT Test performed by Manager [employer] Mediated Amplification (TMA). Authorizing ProviderResult TypeResult StatusBelle GURROLA_1Final Result Performing OrganizationAddressCity/State/ZIP CodePhone Number [facility] [address] [phone] from Last 3 Months or Most Recently Relevant to Health Maintenance Insurance * Guarantor: Valentina Moses TypeRelation to PatientDate of BirthPhone Billing AddressPersonal/FamilyTemporary Cxbbogu9902/[birth year]/[address] [place] [phone] * Guarantor: Valentina Moses TypeRelation to PatientDate of BirthPhone Billing AddressPersonal/FamilyTemporary Kigfjxn5202/06/[address] [place] [phone] Advance Directives * Full Code (Latest Code Status on File) Date ActivatedDate RyqzhgegyegUjbuvzjd23/4/2023 3:25 PM10 12:22 PM * Full Code Date ActivatedDate InactivatedComments04/19/2022 2:48 PM3 3:18 PM Care Teams Team MemberRelationshipSpecialtyStart DateEnd Date Belle Diaz PA-C [address] [place] [address] PCP - GeneralPhysician Assistant08/15/21
--- OUTSIDE RECORDS SUMMARY | 2025-02-02 17:08 | XMS_ITS | Clinical Summary ---
Author Organization [facility] Address [address] [place] [address]. [place] [address] Care Team Providers Care Lead Database Administrator Name Role Phone Reynaldo Moya MD Unavailable + Ilya Muñoz PA-C Unavailable No Ref-Primary, Physician Primary Care Provider Allergies No known active allergies Medications MedicationSigDispense QuantityRefillsLast FilledStart DateEnd DateStatus albuterol (PROAIR HFA/PROVENTIL HFA/VENTOLIN HFA) 108 (90 Base) MCG/ACT inhaler Inhale 2 puffs into the lungs every 6 hours as mbcnyi7910/04/2017Active hydrOXYzine (ATARAX) 25 MG tablet Indications:Insomnia due to other mental disorder,AnxietyTake 1 tablet (25 mg) by mouth 4 times daily as needed for anxiety 50 tablet 04/01/2019Active melatonin 3 MG tablet Take 3 mg by mouth At BedtimeActive celecoxib (CELEBREX) 200 MG capsule Indications:Pelvic pain in femaleTake 1 capsule (200 mg) by mouth 2 times daily for 10 days 20 capsule 4Active Active Problems ProblemNoted DateDiagnosed KmznBohprzqokwe02/06/2023Recurrent abdominal pain 10/27/2022Marijuana use10/27/2022Suicidal /04/2020Suicide attempt by acetaminophen overdose, initial qxiewpnpu20/02/2020Overdose of salicylate, intentional self-harm, initial xcsnoeizu78/31/2020UTI (urinary tract infection) 08/27/2007 Immunizations ImmunizationAdministration DatesNext DueComvax (HIB/HepB)2003DTAP (<7y) 05/08/2008,09/05/2007,03/26/2004DTaP/HepB/IPV06/22/2004,03/26/2004HEPA05/08/2008 ,09/05/2007HIB (PRP-T)06/22/2004,03/26/2004HepB06/22/2004,03/26/2004Influenza Vaccine >6 months,quad, PF03/26/2019MMR (MMRII)05/08/2008,09/05/2007Pneumococcal (PCV 7)09/05/2007,06/22/2004,2003Poliovirus, inactivated (IPV)05/08/2008, 2003Varicella (Varivax)05/08/2008,09/05/2007 Family History Medical HistoryRelationCommentsFamily History NegativeFatherDiabetesMaternal GrandfatherFamily History NegativeMotherGlaucomaNo family hx ofMacular DegenerationNo family hx ofRelationStatusCommentsFatherMaternal Grandfather Mother Social History Tobacco UseTypesPacks/DayYears UsedDateSmoking Tobacco: NeverSmokeless Tobacco: Never Comments:smokes outside. Alcohol UseStandard Drinks/WeekCommentsNo0 (1 standard drink = 0.6 oz pure alcohol)PHQ-2AnswerDate RecordedPHQ-2 Luoqs962dolescent EducationAnswer Date RecordedGetting School Help NeededNot on file11/13/2022Food Insecurity AnswerDate RecordedWithin the past 12 months, did you worry that your food would run out before you got money to buy more?No08/04/2023Within the past 12 months, did the food you bought just not last and you didn???t have money to getmore?No 08/04/2023Housing StabilityAnswerDate RecordedDo you have housing? (Housing is defined as stable permanent housing and does not include staying outside in a car, in a tent, in an abandoned building, in an overnight residential, or couch-surfing.)Yes08/04/2023re you worried about losing your housing?No 08/04/2023Financial Resource StrainAnswerDate RecordedWithin the past 12 months, have you or your family members you live with been unable to get utilities (heat, electricity) when it was really needed?No08/04/2023Transportation Needs AnswerDate RecordedWithin the past 12 months, has lack of transportation kept you from medical appointments, getting your medicines, non-medical meetings or appointments, work, or from getting things that you need?No08/04/2023 Interpersonal SafetyAnswerDate RecordedDo you feel physically and emotionally safe where you currently live?Yes08/04/2023Within the past 12 months, have you been hit, slapped, kicked or otherwise physically hurt by someone?No08/04/2023 Within the past 12 months, have you been humiliated or emotionally abused in other ways by your partner or ex-partner?No08/04/2023CommentsNoSex and Gender InformationValueDate RecordedSex Assigned at BirthNot on fileLegal Sex Mzpcwq0312/26/2011 4:34 AM CSTGender IdentityNot on fileSexual OrientationNot on file Last Filed Vital Signs Vital SignReadingTime TakenCommentsBlood Ucmstawa509/8407 10:00 AM CDT Gppeh8827 11:00 AM LJFLgedzrxcgbb90.9 ??C (98.5 ??F)09/11/2024 9:26 AM CDTRespiratory Irry201809/11/2024 11:00 AM CDTOxygen Uhexkuxydl69%09/11/2024 11:00 AM CDTInhaled Oxygen Concentration--Rntuti44.7 kg (175 lb 9.6 oz)08/04/2023 7:01 AM HPJEqpssy693 cm (5' 5.35)08/04/2023 7:01 AM CDTBody Mass Index28.91 08/04/2023 7:01 AM CDT Plan of Treatment Health MaintenanceDue DateLast DoneCommentsANNUAL REVIEW OF HM GOYAQZ35 2003 HIV MFKUDDJWJ46/23/2019MENINGITIS B VACCINE (1 of 2 - Standard)2019 HEPATITIS C WSSCGSBEZ59/23/2022PHQ-2 (once per calendar year)2024 08/04/2023, 08/04/2023YEARLY PREVENTIVE VISIT/06/2023, 10/05/2016, 05/08/2008, Additional history dpwxqgQKL99/23/2025OVID-19 VACCINE ( - season)/06/2023INFLUENZA VACCINE (#1)/, 03/26/2019DTAP/TDAP/TD VACCINE (7 - Td or Tdap), 05/08/2008, 09/05/2007, Additional history existsADVANCE CARE FDLBZZAG26/07/2022 ZOSTER VACCINE (1 of 2)10/13/2053HEPATITIS B XJCEGOYIuknxzmpl24/02/2005, 06/22/2004, 06/22/2004, Additional history existsHPV ACAJPJOSgmqbbmxa57/15/2020, 10/04/2017MENINGITIS YZXDXCBKiaeiykhw09/08/2022, 08/28/2021, 10/01/2015, Additional history existsPNEUMOCOCCAL VACCINE: PEDIATRICS (0 to 5 YEARS) AND AT- RISK PATIENTS (6 to 49 YEARS)Aged Out05/27/2023, 09/05/2007, 06/22/2004, Additional history existsNo longer eligible based on patient's age to complete this topicCHLAMYDIA KZCNXEGHKWsirwvcjvmfm62/01/2024, 03/29/2019 Procedures Procedure NamePriorityDate/TimeAssociated DiagnosisCommentsCHLAMYDIA TRACHOMATIS MWLTolbfwk63/06/2020 2:52 PM POLICE AIDE from Last 3 Months or Most Recently Relevant to Health Maintenance Results * Chlamydia trachomatis PCR (03/29/2019 2:52 PM POLICE AIDE)ComponentValueRef RangeTest MethodAnalysis TimePerformed AtPathologist SignatureSpecimen DescriptionUrine 03/29/2019 3:31 PM CSTUNRUTLAND [facility] CENTERChlamydia Trachomatis PCRNegativeNEG^Fvnbunwv46/07/2020 1:20 PM CSTINFECTIOUS DISEASES DIAGNOSTIC LABORATORYComment: Negative for C. trachomatis rRNA by public relations account executive mediated amplification. A negative result by public relations account executive mediated amplification does not preclude the presence of C. trachomatis infection because results are dependent on proper and adequate collection, absence of inhibitors, and sufficient rRNA to be detected. Specimen (Source)Anatomical Location / LateralityCollection Method / Volume Collection TimeReceived TimeUrine specimen (specimen)03/29/2019 2:52 PM POLICE AIDE 03/29/2019 3:30 PM POLICE AIDE Narrative Authorizing ProviderResult TypeResult StatusElise Lucie GURROLA - YAMIL GENERAL ORDERABLESFinal ResultPerforming OrganizationAddressCity/State/ZIP Code Phone Number [facility] [address] [place], [place] [address] [address] [place] [address] from Last 3 Months or Most Recently Relevant to Health Maintenance Insurance * Guarantor: Rimma Samuels TypeRelation to PatientDate of BirthPhone Billing AddressPersonal/BajokqErbgxm46/08/1984 none (Work) [address] [place] [address] * Guarantor: Breanna HASSAN TypeRelation to PatientDate of BirthPhone Billing AddressPersonal/FamilyLegal Ibpzthmu41/22/1969 [address] [address] [address] * Guarantor: Breanna HASSAN TypeRelation to PatientDate of BirthPhone Billing AddressPersonal/FamilyLegal Hrlijptp64/[birth year][id number] [place] [phone] * Guarantor: Breanna HASSAN TypeRelation to PatientDate of BirthPhone Billing AddressBehavioralLegal Pkiaxsup00/[birth year]/[id number] [place] [phone] Advance Directives For more information, please contact: [phone] * Full Code (Latest Code Status on File) Date ActivatedDate InactivatedComments10/27/2022 6:53 PM10/28/2022 6:03 PMAll basic and advanced life-sustaining interventions are performed as appropriateQuestion AnswerCommentsCode status determined by:* Discussion with patient/ legal decision maker * Full Code Date ActivatedDate InactivatedComments03/27/2019 9:25 PM2 4:29 PMQuestion AnswerCommentsCode status determined by:* Other (please document) * Full Code Date ActivatedDate InactivatedComments03/27/2019 2:17 PM2 8:33 PMQuestion AnswerCommentsCode status determined by:* Discussion with patient/legal decision maker Care Teams Team MemberRelationshipSpecialtyStart DateEnd Date Reynaldo Moya MD [facility] [address] [place] [address] PCP - Mental Health/Behavioral MedicinePsychiatr03/28/19 No Ref-Primary, Physician PCP - General09/11/24 Ilya Muñoz PA-C 0 [facility] [address] Assigned PCP08/14/23
--- OUTSIDE RECORDS SUMMARY | 2025-02-02 17:09 | XMS_ITS | Clinical Summary ---
Author Organization [facility] er Address [address] [place] [address] Care Team Providers Care Ammunition Storage Superintendent Name Role Phone Hansel Holden MD Primary Care Provider [phone] Allergies No known active allergies Medications * This document contains information received from the source organization and may not represent a complete record from that organization. MedicationSigDispense QuantityRefillsLast FilledStart DateEnd DateStatus hydrOXYzine (Vistaril) 50 MG capsule Indications:Moderate episode of recurrent major depressive disorder (HCC), Generalized anxiety disorderTake 1 capsule (50 mg total) by mouth 3 (three) times a day if needed for anxiety 30 capsule 5Active FLUoxetine (PROzac) 20 MG tablet Indications:Moderate episode of recurrent major depressive disorder (HCC)Take 1 tablet (20 mg total) by mouth 1 (one) time each day 90 tablet 5Active lamoTRIgine (LaMICtal) 25 MG tablet Indications:Moderate episode of recurrent major depressive disorder (HCC)Take 3 tablets (75 mg total) by mouth 1 (one) time each day 90 tablet 5Active capsaicin cream (CAPZASIN-HP) 0.1 % cream cream Indications:Cannabis hyperemesis syndrome concurrent with and due to cannabis dependence (HCC)Apply 1 application topically 4 (four) times a day Apply a thin film to upper abdomen 60 g 5Active ondansetron ODT (ZOFRAN-ODT) 4 MG dispersible tablet Indications:Cannabis hyperemesis syndrome concurrent with and due to cannabis dependence (HCC)Take 1 tablet (4 mg total) by mouth every 8 (eight) hours if needed for nausea or vomiting 12 tablet 5Active lamoTRIgine (LaMICtal) 25 MG tablet Indications:Moderate episode of recurrent major depressive disorder (HCC)Take 2 tablets (50 mg total) by mouth 1 (one) time each day 180 tablet DiscontinuedHospital, Clinic, or Other Facility Administered MedicationOrdered DoseRouteFrequencyStart DateEnd DateStatus medroxyPROGESTERone (DEPO-PROVERA) injection 150 mg Indications:Encounter for counseling regarding kvyeuobgqspba052 mgIMEvery 3 zlttij21/ctive ondansetron ODT (ZOFRAN-ODT) dispersible tablet 8 mg Indications:Cannabis hyperemesis syndrome concurrent with and due to cannabis dependence (HCC)8 gqASZzfg41Ended Active Problems ProblemNoted DateDiagnosed DateCannabis use aslvfncc62/10/2025High risk medication use12/20/2024Menstrual ebiwadp4110/18/2024annabis hyperemesis syndrome concurrent with and due to cannabis isxunafxzp97/24/2025urrent moderate episode of major depressive gbdkdvnu64/05/2024 Assessment & Plan (07/06/2023 11:28 AM CDT): [...] (Zoloft) 50 mg tablet daily Generalized anxiety btgnasej05/05/2024 Assessment & Plan (07/06/2023 11:28 AM CDT): [...] 50 mg tablet daily Vapes nicotine containing yjraiihwh52/05/2024Encounter for wellness examination 05/27/2023Immunization due05/27/2023 Assessment & Plan (05/27/2023 4:36 PM CDT): Pneumonia and Covid vaccines completed today Encounter for counseling regarding pfmrmzaqyvojh11/05/2024 Assessment & Plan (05/27/2023 4:37 PM CDT): Jazmin to return to clinic next week for STI testing Encounters DateTypeDepartmentCare RmtoDaxxsfvgovh83/10/2025 3:00 PM CSTOffice Visit [place] [address] [address] Hansel Holden MD Cannabis hyperemesis syndrome concurrent with and due to cannabis dependence (HCC) (Primary Dx); Cannabis use disorder; Moderate episode of recurrent major depressive disorder (HCC); Generalized anxiety fmmdmmma93/10/2025Telephone [place] [address] [address] Hansel Holden MD [facility] Hulxqsek33/10/2025Nurse Triage [place] [address] [address] Hansel Holden MD 01/14/2025 9:20 AM CSTOffice Visit [place] [address] [address] Hansel Holden MD Moderate episode of recurrent major depressive disorder (HCC) (Primary Dx) 12/20/2024 10:40 AM CDTOffice Visit [place] [address] [address] Hansel Holden MD Moderate episode of recurrent major depressive disorder (HCC) (Primary Dx); Encounter for counseling regarding contraception; High risk medication use; Screening for diabetes mellitus; Screening for cardiovascular condition; Need for hepatitis C screening test; Screen for STD (sexually transmitted disease); Screening for HIV (human immunodeficiency virus)12/14/2024 4:20 PM CDTOffice Visit [place] [address] [facility] [address] [place] [address] Hansel Holden MD Moderate episode of recurrent major depressive disorder (HCC) (Primary Dx) 12/12/2024Nurse Triage [place] [address] [facility] [address] [place] [address] Hansel Holden MD 12/03/2024 10:00 AM CDTOffice Visit [place] [address] [address] Hansel Holden MD Moderate episode of recurrent major depressive disorder (HCC) (Primary Dx); Generalized anxiety ukbwskug06/25/2025 10:00 AM CDTOffice Visit [place] [address] [address] Hansel Holden MD Moderate episode of recurrent major depressive disorder (HCC) (Primary Dx) 11/15/2024Telephone [place] [address] [address] Hansel Holden MD FLUoxetine HCl 20MG tablets (Med pa)11/06/2024 2:00 PM CDTConsult [facility] Clothing And Textiles Teacher [address] [place] [address] Maria Teresa Ibarra, DNP, LINUX SERVER ADMINISTRATOR, CRIB ATTENDANT Abnormal uterine bleeding (Primary Dx)from Last 3 Months Immunizations ImmunizationAdministration DatesNext DueCOVID-19, mRNA, LNP-s, PF, issa- succrose, 30mcg/0.3mL, COMIRNATY Ages 12+11/15/2024,6665DOmU61/18/2009, 09/05/2007,06/22/2004,03/26/2004,2003DTaP / Hep B / IPV06/22/2004, 03/26/2004HPV 9-Wkkexn6109/05/2019,10/04/2017Hep A, 2 Dose05/08/2008,09/05/2007Hep A, Vpiwmtjcyvq01/18/2009,09/05/2007Hep B / HiB11Hep B, Adolescent or Vwtweyrsf40/02/2005,03/26/2004,2003Hepatitis B006/22/2004,03/26/2004HiB 06/22/2004,03/26/2004,2003Hib (PRP-T)06/22/2004,03/26/2004IPV05/08/2008, 06/22/2004,03/26/2004,2003Influenza 6mo-64yrs Quad Preservative Free IM 11/12/2022,11/12/2022,03/26/2019Influenza, Split Virus, Trivalent, Preservative 11/03/2011Influenza, Trivalent, PF11/06/2024,11/03/2011MMR05/08/2008,09/05/2007 Meningococcal Kzmtfqqxm03/08/2022,10/01/2015Meningococcal MCV4, Unspecified 08/28/2021,10/01/2015PPD Test09/20/2017Pneumococcal Vugryxyul02/15/2008, 06/22/2004,2003Pneumococcal Conjugate BLL1906/06/20236209Kyhv31/10/2016 Ygvoxqwps34/18/2009,09/05/2007 Family History RelationStatusCommentsBrother 1AliveBrother 2AliveFatherAliveMotherAlive Social History Tobacco UseTypesPacks/DayYears UsedDateSmoking Tobacco: NeverPassive Smoke Exposure: NeverSmokeless Tobacco: Never Tobacco Cessation:Counseling Given: Not Answered Alcohol UseStandard Drinks/HegpGwxufcuyQku33 (1 standard drink = 0.6 oz pure alcohol)B1300 Health LiteracyAnswerDate RecordedHow often do you need to have someone help you when you read instructions, pamphlets, or other written material from your doctor or pharmacy?Never11/06/2024HC UtilitiesAnswerDate RecordedIn the past 12 months has the electric, gas, oil, or water [employer] threatened to shut off services in your [...] of sexual activity by your partner or ex-partner?No11/06/2024Social Connection and Isolation Panel AnswerDate RecordedIn a typical week, how many times do you talk on the phone with family, friends, or neighbors?More than three times a week11/06/2024How often do you get together with friends or relatives?More than three times a week 11/06/2024How often do you attend gnosticist or orthodox services?Never11/06/2024Do you belong to any clubs or organizations such as gnosticist groups, unions, fraternal or athletic groups, or school groups?No11/06/2024How often do you attend meetings of the clubs or organizations you belong to?Never11/06/2024re you , , , , never , or living with a partner?Patient /16/2025UDIT-CAnswerDate RecordedQ1: How often do you have a drink containing alcohol?4 or more times a week11/06/2024Q2: How many drinks containing alcohol do you have on a typical day when you are drinking?3 or Q3: How often do you have six or more drinks on one occasion?Less than keoyzmq4311/06/2024Overall Financial Resource Strain (CARDIA)AnswerDate RecordedHow hard is it for you to pay for the very basics like food, housing, medical care, and heating?Hard11/06/2024PHQ-2AnswerDate RecordedPHQ-9 Total Nzyea6120/10/2025[facility] [place] [facility] - Occupational Stress QuestionnaireAnswerDate [...] were you homeless or living in a longterm (including now)? No11/06/2024CommentsNoSex and Gender InformationValueDate RecordedSex Assigned at BirthNot on fileLegal UxlGuzbuo72/11/2024 2:49 PM CDTGender Identity Not on fileSexual OrientationNot on fileOccupationIndustryJob Start DateJob End DateTargetNot on fileNot on fileNot on file Last Filed Vital Signs Vital SignReadingTime TakenCommentsBlood Cdbjgzux835/8801/30/2025 2:36 PM OUTSIDE OPERATOR Oblxs97554/10/2025 2:36 PM IWEOmkisgghvvt69.7 ??C (99.9 ??F)01/30/2025 2:36 PM CSTRespiratory Rzqf806904/02/2024 2:36 PM CSTOxygen Xryvxlulnl15%01/14/2025 9:18 AM CSTInhaled Oxygen Concentration--Huhroz47.9 kg (165 lb 1.6 oz)01/14/2025 9:18 AM ILJZlaxzl351 cm (5' 6.14)01/14/2025 9:18 AM CSTBody Mass Index26.53 01/14/2025 9:18 AM OUTSIDE OPERATOR Plan of Treatment DateTypeDepartmentCare Team (Latest Contact Info)Bzoorierwpr25/05/2026 8:00 AM CSTOffice Visit [address] [address] 02/27/2025 8:20 AM CSTOffice Visit [place] [address] [address] Melva Mena, LINUX SERVER ADMINISTRATOR [address] [place] [address] Health MaintenanceDue DateLast DoneCommentsPap Smear2003Chlamydia Djjqaeqtp31/02/2023, 03/29/2019DTaP,Tdap,and Td Vaccines (7 - Td or Tdap)608/11/2015, 05/08/2008, 09/05/2007, Additional history existsHPV VpbzlmpsGyrbaigol92/15/2020, 10/04/2017Pneumococcal Vaccine: Pediatrics (0 to 5 Years) and At-Risk Patients (6 to 49 Years)Zgdtmeyfc75/05/2024, 09/05/2007, 06/22/2004, Additional history existsInfluenza WmagkxzEtjtourkd39/16/2025, 11/12/2022, 11/12/2022, Additional history existsCOVID-19 VaccineCompleted 11/15/2024, 4Asthma: Control TestDiscontinued Procedures Procedure NamePriorityDate/TimeAssociated DiagnosisCommentsPREGNANCY, URINE Nhggnls6612/20/2024 10:55 AM CDT Encounter for counseling regarding contraception from Last 3 Months Results * , urine (12/20/2024 10:55 AM CDT)ComponentValueRef RangeTest Method Analysis TimePerformed AtPathologist SignaturePregnancy Test, UrineNEGATIVE Tfvufttw90/30/2025 11:03 AM [facility] JOSELIN TRAPHILLSpecimen (Source)Anatomical Location / LateralityCollection Method / VolumeCollection TimeReceived Time Urine (Urine, Clean Catch)12/20/2024 10:55 AM CDT1 10:55 AM CDT Narrative Authorizing ProviderResult TypeResult StatusMattyajaira Holden MDLAB URINE ORDERABLESFinal ResultPerforming OrganizationAddressCity/State/ZIP CodePhone Number REPLACED BY [facility] [address] [place] [address] from Last 3 Months Insurance Care Teams Team MemberRelationshipSpecialtyStart DateEnd Hansel Holden MD [address] [place] [address] PCP - GeneralFamily Medicine11/15/24
--- OUTSIDE RECORDS SUMMARY | 2025-02-02 17:09 | XMS_ITS | Patient Health Record ---
Author Organization [facility] Address [address] [place] [address] Care Team Providers Care Ice Sculptor Name Role Phone None, No PCP Primary Care Provider Cecy ana maria Savannah Bo Unavailable [phone] Allergies No Known Allergies Reason For Referral No Information Medications Medication SIG (Take, Route, Frequency, Duration) Notes Start Date End Date Status Ashwagandha ActiveAlbuterolActive Social History Tobacco Use: Social History Observation Description Date Details (start date - stop date) Never Smoker NA - NA Tobacco Control (Standard) Question Answer Notes Tobacco use: Nonsmoker Plan Of Treatment No Information Insurance Providers Payer Name Payer Address Payer Phone Subscriber Number Group Number Insured Name Patient Relationship to Insured Coverage Start Date Coverage End Date [place] (Ins Bill) [address] [address] [place] [address] [id number], [employer] - [facility] (Ins. Bill)[address] [address] [place], [place] [id number], [employer] - patient is the insured Medical (General) History Medical History History ICD Code depression asthmaSurgical History Surgery Date(Month/Year) IUD removal under sedation 12/02/2023
--- OUTSIDE RECORDS SUMMARY | 2025-02-02 17:09 | XMS_ITS | Encounter Summary ---
Author Organization [facility] er Address [address] [place] [address] Care Team Providers Care Rental Management Trainee Name Role Phone Hansel Holden MD Primary Care Provider [phone]- [phone] Reason for Visit * ReasonOnset DateCommentsCommon [facility] Qmtltfzw22/10/2025 Encounter Details DateTypeDepartmentCare Team (Latest Contact Info)Zcjnrzbulwn86/10/2025Telephone [place] [address] [address] Hansel Holden MD [address] [place] [phone] [facility] Referral Social History Tobacco UseTypesPacks/DayYears UsedDateSmoking Tobacco: NeverPassive Smoke Exposure: NeverSmokeless Tobacco: NeverAlcohol UseStandard Drinks/WeekComments Yes10 (1 standard drink = 0.6 oz pure alcohol)B1300 Health LiteracyAnswerDate RecordedHow often do you need to have someone help you when you read instructions, pamphlets, or other written material from your doctor or pharmacy? Never11/06/2024HC UtilitiesAnswerDate RecordedIn the past 12 months has the [employer] oil, or water [employer] threatened to shut off services in your [...] week11/06/2024How often do you attend hoahaoism or anabaptism services?Never11/06/2024Do you belong to any clubs or organizations such as hoahaoism groups, unions, fraIntercasting or athletic groups, or school groups?No11/06/2024How often [...] or more drinks on one occasion?Less than lxgsvlu5111/06/2024 Overall Financial Resource Strain (CARDIA)AnswerDate RecordedHow hard is it for you to pay for the very basics like food, housing, medical care, and heating? Hard11/06/2024PHQ-2AnswerDate RecordedPHQ-9 Total Yboit0743/10/2025[facility] [place] of Occupational Health - Occupational Stress [...] were you homeless or living in a fci (including now)?No 11/06/2024CommentsNoSex and Gender InformationValueDate RecordedSex Assigned at BirthNot on fileLegal GotLmzlfy96/11/2024 2:49 PM CDTGender Identity Not on fileSexual OrientationNot on fileOccupationIndustryJob Start DateJob End DateTargetNot on fileNot on fileNot on filedocumented as of this encounter Functional Status * BPAnswerDate of JmkjrtjipeIgmzif421/ 2:36 PM Sultana Montilla * PulseAnswerDate of FlqswfzebmRhusem72805/10/2025 2:36 PM Sultana Montilla documented as of this encounter Miscellaneous Notes * Telephone Encounter - Sultana Posada - 01/30/2025 4:36 PM CST Faxed referral to [facility] in [place]. OSITION ROLL MAKER AND CUTTER documented in this encounter Plan of Treatment DateTypeDepartmentCare Team (Latest Contact Info)Aeguaeihkcz04/05/2026 8:00 AM CSTOffice Visit [place] 1705 [facility] [address] [place] [address] 02/27/2025 8:20 AM CSTOffice Visit [place] [address] [address] Melva Mena, WATCH PARTS GRINDER [address] [place] [address] documented as of this encounter Visit Diagnoses Not on filedocumented in this encounter Care Teams Team MemberRelationshipSpecialtyStart [place] [address] [place] [phone] PCP - GeneralFamily Medicine11/15/24documented as of this encounter
--- NOTE | 2025-02-02 17:26 | CRLHL7_ITS ---
For Patients: As a result of the Cures Act, medical imaging exams and procedure reports are released immediately into your electronic medical record. You may view this report before your referring provider. If you have questions, please contact your health care provider. INDICATION: : COUGH COMPARISON: None TECHNIQUE: Two view(s) of the chest FINDINGS: The cardiomediastinal silhouette and pulmonary vasculature are unremarkable. There is no focal airspace consolidation, pleural effusion, or pneumothorax. No displaced fractures. IMPRESSION: No acute cardiopulmonary process. Dictated by Ranjith Robertson MD @ 02/02/2025 6:40:36 PM (Electronically Signed)
[2025-02-02 17:54] LABS: Appearance Urine Clear (Clear)
[2025-02-02 18:07] LABS: Ur HCG Qualitative* Negative (Negative)
[2025-02-02 18:09] LABS: Lactate* 1.3 mmol/L (0.5-1.9)
[2025-02-02 18:13] LABS: Hematocrit* 37.3 % (33.0-51.0); Hemoglobin* 12.8 gm/dL (12.0-16.0); Immature Granulocytes Abs Auto 0.01 K/uL (0.00-0.30); Immature Granulocytes Pct Auto 0.1 %; Lymphocytes Absolute Auto 2.50 K/uL (0.90-2.90); Mean Corpuscular HGB Conc 34 gm/dL (32-36); Mean Corpuscular Hemoglobin 30 pg (26-34); Mean Corpuscular Volume 86 fL (80-100); RDW Coefficient of Variation % 12.5 % (11.5-15.5); Red Blood Count* 4.32 m/uL (4.00-5.20); White Blood Count* 10.24 K/uL (4.50-11.00)
[2025-02-02 18:23] LABS: Slide Review Reflex No
--- NOTE | 2025-02-02 18:24 | ED.GENADULT ---
HPI - General Adult General Chief complaint: Syncope/Fainted Stated complaint: fainted Time Seen by Provider: 02/02/25 17:18 Source: patient Mode of arrival: EMS Limitations: no limitations History of Present Illness HPI narrative: 19-year-old female presenting today after she collapsed in the parking lot at her work. 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 She then after being at work for 3 hours, went to take her break. She went to vape in her car. When she got out of the car she set foot outside her car and states that her legs gave out and she collapsed to the ground. She was able to stand up right away within 5-10 seconds. She did not lose consciousness or hit her head. But afterwards she did not feel well. She went back inside and called the ambulance. She is not short of breath, denies chest pain or abdominal discomfort. Patient is on a Depo shot and does not have regular menses. She does have a history of depression and anxiety. She is on fluoxetine, hydroxyzine as needed and lamotrigine. No new medications. She vapes nicotine products. She did use marijuana quite heavily, states that she has not used any for a few days now. She states that about a month ago she did have a syncopal episode when she was at home brushing her teeth in the morning. She believes she passed out, hit the ground and was out for a few minutes. She denies feeling dizzy or lightheaded. No vertiginous symptoms. No palpitations. No tunnel vision. No post ictal symptoms. Related Data Home Medications ?Medication ?Instructions ?Recorded ?Confirmed fluoxetine 20 mg tablet 20 mg PO DAILY 02/02/25 02/02/25 hydroxyzine pamoate 50 mg capsule 50 mg PO 3XD 02/02/25 02/02/25 lamotrigine 25 mg tablet PO 02/02/25 Allergies Allergy/AdvReac Type Severity Reaction Status Date / Time No Known Drug Allergies Allergy Verified 02/02/25 17:16 Review of Systems Status of ROS: Reports: 10 or more systems reviewed and unremarkable except as noted in History and below [facility] Medical History Constipation ?K59.00 - Constipation, unspecified (ICD-10) Cannabis hyperemesis syndrome concurrent with and due to cannabis abuse ?F12.188 - Cannabis abuse with other cannabis-induced disorder (ICD-10) Hypokalemia ?E87.6 - Hypokalemia (ICD-10) Social History Narrative: Lives with her dad and stepmom in [place]. 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 What is your current living situation?: I presently have a place to live Problems where you live: no known problems Problems where you live details: NA In the past 12 months, utilities in danger of being shut off: no In past 12 months, lack of transportation kept you from medical appts, meetings, work, or getting things needed for daily living: no In the past 12 mos, have been you worried that your food would run out before you had money to buy more?: never true In the past 12 mos, the food you bought just didn't last and you didn't have money to buy more?: never true Highest level of school completed/degree received: 12th grade, no diploma Smoking Status: Never smoker Do you use any of these nicotine containing products: Vaping Products Second hand tobacco smoke exposure: No How often do you have a drink containing alcohol: monthly or less AUDIT-C Alcohol total score: 1 Non-prescribed substance use: marijuana (any form) Caffeine: No How often does anyone, including family, friends and others, physically hurt you: never How often does anyone, including family, friends and others, insult or talk down to you: never How often does anyone, including family, friends and others, threaten you with harm: never How often does anyone, including family, friends and others, scream or curse at you: never service: No Exam Narrative: Exam Narrative: Well-nourished well-developed patient in no acute distress. Alert and oriented. Answers questions appropriately. Mood and affect are appropriate. Thoughts are goal oriented and rational. No tangential or magical thinking noted. Patient speaks in full sentences without needing to catch her breath. HEENT: Normocephalic atraumatic. Pupils are equally round reactive to light. Extraocular muscles are intact. Conjunctivae are moist without any icterus noted. Moist mucous membranes. Posterior pharynx is normal. Neck is soft without any lymphadenopathy or thyromegaly. No masses are appreciated. Cardiovascular: Heart is regular rate and rhythm S1 and S2 are present without any murmurs. Lungs: Clear to auscultation bilaterally no wheezes rhonchi or rales are appreciated. Patient takes deep breaths without any discomfort. Abdomen: Soft and nontender nondistended with normal bowel sounds. No guarding or rebound. No masses or organomegaly appreciated. Extremities: Bilateral lower extremities are without edema. Normal DP and PT pulses. Skin: Well perfused without any obvious rashes. Strength is 5/5 of the upper and lower extremities. Reflexes are 2+ and symmetric at the knees. Romberg sign is negative. Cranial nerves 3-12 are normal. [id number] is normal. There is no nystagmus either horizontally or vertically. Gait is normal. Const: Vital Signs, click to edit/add: Vital Signs - 24 hr 02/02/25 17:10 02/02/25 17:45 02/02/25 18:30 Temperature 97.2 F L Pulse Rate 72 Pulse Rate [Right Pulse Oximeter] 75 Respiratory Rate 18 16 Blood Pressure 120/74 Blood Pressure [Le ft Upper Arm] 120/90 H Pulse Oximetry 99 99 99 Oxygen Delivery Me thod Room Air 02/02/25 18:42 02/02/25 18:43 02/02/25 18:44 Temperature Pulse Rate 68 68 70 Pulse Rate [Right Pulse Oximeter] Respiratory Rate 19 15 16 Blood Pressure 124/76 122/78 125/80 Blood Pressure [Le ft Upper Arm] Pulse Oximetry 100 95 99 Oxygen Delivery Me thod 02/02/25 19:31 Temperature Pulse Rate 68 Pulse Rate [Right Pulse Oximeter] Respiratory Rate 19 Blood Pressure 119/75 Blood Pressure [Le ft Upper Arm] Pulse Oximetry 99 Oxygen Delivery Me thod Course Course ED Course: IV established and we started the patient on 1 L of normal saline. Vital signs are stable, no evidence of orthostatic hypotension. Labs unremarkable. Urine poor specimen. Negative test. EKG, read by me, shows normal sinus rhythm with a pulse of 64. Rightward axis. Normal HI, QTC and QRS intervals. Blood work was unremarkable except for CK that was slightly elevated. After getting fluids, patient also ate dinner and was feeling much better. 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 Vital Signs Vital signs: Initial Vital Signs Temperature 97.2 F L 02/02/25 17:10 Temperature Source Temporal Artery Scan 02/02/25 17:10 Pulse Rate 75 02/02/25 17:10 Pulse Rhythm Regular 02/02/25 17:10 Pulse Strength 3+ Normal 02/02/25 17:10 Respiratory Rate 18 02/02/25 17:10 Blood Pressure 120/90 H 02/02/25 17:10 Blood Pressure Mean 100 02/02/25 17:10 Blood Pressure Position Supine 02/02/25 17:10 Pulse Oximetry 99 02/02/25 17:10 Oxygen Delivery Method Room Air 02/02/25 17:10 Vital Signs Temperature 97.2 F L 02/02/25 17:10 Pulse Rate 75 02/02/25 17:10 Respiratory Rate 18 02/02/25 17:10 Blood Pressure 120/90 H 02/02/25 17:10 Pulse Oximetry 99 02/02/25 17:10 Oxygen Delivery Method Room Air 02/02/25 17:10 Temperature 97.2 F L 02/02/25 17:10 Pulse Rate 68 02/02/25 19:31 Respiratory Rate 19 02/02/25 19:31 Blood Pressure 119/75 02/02/25 19:31 Pulse Oximetry 99 02/02/25 19:31 Oxygen Delivery Method Room Air 02/02/25 17:10 Medications Administered Medications: Discontinued Medications Generic Name Dose Route Start Last Admin Trade Name Freq PRN Reason Stop Dose Admin Sodium Chloride 1,000 mls @ 1,000 mls/hr 02/02/25 17:30 02/02/25 18:47 0.9 % Sodium Chloride 1000 Ml IV 02/02/25 18:29 Infused .Q1H NELLY Infusion Medical Decision Making MDM Narrative Medical decision making narrative: 19-year-old female status post collapsing momentarily earlier in the day. Feeling better. Workup unremarkable. Recommend follow-up with primary care. Lab Data Lab results reviewed: Yes I reviewed the patient's lab results Labs: Lab Results 02/02/25 02/02/25 Range/Units 17:39 17:45 WBC 10.24 (4.50-11.00) K/uL RBC 4.32 (4.00-5.20) m/uL Hgb 12.8 (12.0-16.0) gm/dL Hct 37.3 (33.0-51.0) % MCV 86 (80-100) fL MCH 30 (26-34) pg MCHC 34 (32-36) gm/dL RDW Coeff of Anjelica 12.5 (11.5-15.5) % Plt Count 272 (140-440) K/uL Neut % (Auto) 67.3 (42.0-72.0) % Lymph % (Auto) 24.4 (20-44) % [place] % (Auto) 6.5 (0.0-11.0) % Eos % (Auto) 1.2 (0.0-7.0) % Baso % (Auto) 0.5 (0.0-3.0) % Neut # (Auto) 6.89 (1.7-7.0) K/uL Lymph # (Auto) 2.50 (0.90-2.90) K/uL [place] # (Auto) 0.70 (0.00-0.90) K/UL Eos # (Auto) 0.12 (0.00-0.50) K/uL Baso # (Auto) 0.05 (0.00-0.30) K/uL Abs Immat Gran (auto) 0.01 (0.00-0.30) K/uL Imm/Tot Granulo (auto) 0.1 % D-Dimer Quant (PE/DVT) < 0.27 (0.00-0.50) ug/ml Sodium 139 (135-149) mmol/L Potassium 3.9 (3.6-5.1) mmol/L Chloride 104 (96-114) mmol/L Carbon Dioxide 22 (20-32) mmol/L Anion Gap 13 (7-15) mEq/L BUN 14 (5-24) mg/dL Creatinine 0.9 (0.5-1.5) mg/dL Estimated GFR 93 ml/min Glucose 94 (60-115) mg/dL Lactate 1.3 (0.5-1.9) mmol/L Calcium 9.8 (8.4-10.6) mg/dL Magnesium 1.9 (1.5-2.6) mg/dL Total Bilirubin 0.7 (0.1-1.5) mg/dL Direct Bilirubin 0.2 (0.0-0.5) mg/dL AST 31 (12-35) U/L ALT 25 (4-35) U/L Alkaline Phosphatase 78 (40-150) U/L Total Creatine Kinase 235 H (41-117) U/L Troponin I < 0.01 (0.01-0.04) ng/mL C-Reactive Protein < 0.5 L (0.5-1.0) mg/dL Total Protein 7.8 (6.0-8.3) g/dL Albumin 5.0 (3.3-5.0) g/dL TSH 0.622 (0.270-4.20) uIU/mL Urine Color Dark yellow (Yellow) Urine Appearance Clear (Clear) Urine pH 5.5 (5.0-8.5) Ur Specific [place] >= 1.030 (1.000-1.030) Urine Protein 2+ A (Negative) Urine Glucose (UA) Negative (Negative) Urine Ketones 1+ A (Negative) Urine Blood Negative (Negative) Urine Nitrite Negative (Negative) Urine Bilirubin 1+ A (Negative) Urine Urobilinogen 0.2 (0.2-1.0) Ur Leukocyte Esterase Negative (Negative) Urine RBC 0-2 (0-2) Urine WBC 0-2 (0-5) Ur Squamous Epith Cells Many A (None-Few) Amorphous Sediment Few A (None) Urine Bacteria Moderate A (None) Urine Mucus Moderate A (None) Urine HCG, Qual Negative (Negative) Ur Drug Screen Comment See Note SARS-CoV-2 (PCR) Negative SARS-CoV-2 (Negative) Monoscreen Negative (Negative) Influenza Type A (PCR) Negative PCR FLU A (Negative) Influenza Type B (PCR) Negative PCR FLU B (Negative) RSV (PCR) Negative PCR RSV (Negative) Imaging Data Chest x-ray: Attestation: I have reviewed the pertinent imaging results. Radiologist's impression: TECHNIQUE: Two view(s) of the chest FINDINGS: The cardiomediastinal silhouette and pulmonary vasculature are unremarkable. There is no focal airspace consolidation, pleural effusion, or pneumothorax. No displaced fractures. IMPRESSION: No acute cardiopulmonary process. ECG Data Attestation: I personally reviewed and interpreted this ECG as follows: Discharge Plan Discharge Clinical Impression: Pre-syncope Patient Disposition: Home, Self-Care Condition: Improved Additional Instructions: Your workup today was unremarkable. I do recommend you follow-up with your primary care provider to discuss your symptoms and next steps. Make sure you are staying well hydrated, getting plenty of sleep and eating nutritious meals. Prescriptions: No Action hydroxyzine pamoate 50 mg capsule 50 mg PO 3XD lamotrigine 25 mg tablet PO fluoxetine 20 mg tablet 20 mg PO DAILY Follow Up/Referrals: Hansel Holden MD [Primary Care Provider, Internal Medicine] Stand Alone Forms: [employer] Info Instructions
[2025-02-02 18:44] LABS: Albumin* 5.0 g/dL (3.3-5.0)
[2025-02-02 18:45] LABS: Chloride* 104 mmol/L (96-114); Potassium* 3.9 mmol/L (3.6-5.1); Sodium* 139 mmol/L (135-149)
[2025-02-02 18:47] LABS: Blood Urea Nitrogen* 14 mg/dL (5-24); Creatinine* 0.9 mg/dL (0.5-1.5); Estimated Glomerular Filt Rate 93 ml/min
[2025-02-02 18:48] LABS: Alanine Aminotransferase* 25 U/L (4-35); Alkaline Phosphatase* 78 U/L (40-150); Anion Gap 13 mEq/L (7-15); Aspartate Amino Transferase* 31 U/L (12-35); Bilirubin Direct* 0.2 mg/dL (0.0-0.5); Bilirubin Total* 0.7 mg/dL (0.1-1.5); Calcium* 9.8 mg/dL (8.4-10.6); Carbon Dioxide* 22 mmol/L (20-32); Creatine Kinase* 235 U/L (41-117); Glucose* 94 mg/dL (60-115); Total Protein* 7.8 g/dL (6.0-8.3)
[2025-02-02 18:50] LABS: Mono Screen* Negative (Negative)
[2025-02-02 18:55] LABS: PCR FLU A Negative PCR FLU A (Negative); PCR FLU B Negative PCR FLU B (Negative); PCR RSV Negative PCR RSV (Negative); SARS PCR* Negative SARS-CoV-2 (Negative)
[2025-02-02 19:11] LABS: D Dimer Quantitative* < 0.27 ug/ml (0.00-0.50)
[2025-02-02 21:29] LABS: Cannabinoid Screen Urine POSITIVE (Negative); Methamphetamines Screen Urine Negative (Negative); Tricyclic Antidepressant Urine Negative (Negative)
== END 2025-02-02 20:15 | disposition home or self-care (01) ==
PROVIDERS: Emergency Provider Family Medicine; PCP Family Medicine
DX: R55 Syncope and collapse (principal)
CPT/HCPCS: 36415; 71046; 80048; 80076; 80306; 81001; 81025; 82550; 83605; 83735; 84443; 84484; 85025; 85379; 86140; 86308; 87086; 87631; 93005; 94761; 96360; 99284; J7030